=== PATIENT | female | born 1945 | race Caucasian/White ===

== ENCOUNTER 2017-10-14 07:25 | Observation (INO) | payer MEDICARE ==
[~2017-10-14] VITALS: Ht 170.2 cm; Wt 130.3 kg
[2017-10-14] MEDS ORDERED: ONDANSETRON HCL INJ 2 MG/ML VIAL IV STA (08:04)
[2017-10-14] MEDS ORDERED: SODIUM CHLORIDE 0.9% 1000ML 1,000 ML IV ONE (08:15)
[2017-10-14 08:32] LABS: BASOPHILS % 0.3 % (0.0-1.0); HEMATOCRIT 37.8 % (34.2-44.1); HEMOGLOBIN 12.8 g/dL (12.0-16.0); LYMPHOCYTES # (AUTO) 0.4 (1.0-3.2); LYMPHOCYTES % 5.3 % (18.0-39.1); MEAN CORPUSCULAR HEMOGLOBIN 31.7 pg (28-32); MEAN CORPUSCULAR HGB CONC 33.9 g/dL (31-35); MEAN CORPUSCULAR VOLUME 93.6 fL (81-99); MONOCYTES # (AUTO) 0.4 (0.2-0.8); MONOCYTES % 5.6 % (4.4-11.3); NEUTROPHILS # (AUTO) 6.6 (2.1-6.9); NEUTROPHILS % 88.3 % (38.7-80.0); PLATELET COUNT 84 x10e3/uL (140-360); RED BLOOD COUNT 4.04 x10e6/uL (3.6-5.1); RED CELL DISTRIBUTION WIDTH 12.7 % (11.7-14.4)
[2017-10-14 08:45] LABS: BILIRUBIN,URINE NEGATIVE (NEGATIVE); CLARITY,URINE CLEAR (CLEAR); COLOR,URINE YELLOW (YELLOW); KETONES,URINE TRACE (NEGATIVE); LEUKOCYTE ESTERASE ,URINE NEGATIVE (NEGATIVE); NITRITE,URINE NEGATIVE (NEGATIVE); PROTEIN,URINE DIPSTICK 2+ (NEGATIVE); URINE UROBILINOGEN 0.2 mg/dL (0.2 - 1)
[2017-10-14 08:46] LABS: ALBUMIN 3.1 g/dL (3.5-5.0); ALBUMIN/GLOBULIN RATIO 0.9 (0.8-2.0); ANION GAP 12.7 mmol/L (8-16); CALCIUM 8.9 mg/dL (8.4-10.2); CREATININE, SERUM 1.28 mg/dL (0.57-1.11); POTASSIUM 3.7 mmol/L (3.5-5.1)
[2017-10-14 09:05] LABS: AMORPHOUS SEDIMENT,URINE FEW (FEW); BACTERIA,URINE RARE /HPF; EPITHELIAL CELLS,URINE RARE /LPF
--- NOTE | 2017-10-14 09:45 | Diagnostic Imaging Report ---
PROCEDURE:X-RAY ABDOMEN - KUB COMPARISON:None. INDICATIONS:VOMITING FINDINGS: There is a non-obstructed bowel-gas pattern. There are no calcifications projected over the renal shadows, expected course of the ureters or bladder. There are no acute osseous abnormalities. The lung bases are clear. CONCLUSION: No acute radiographic abnormality. Dictated by: Cameron Boone M.D. on 10/14/2017 at 9:45 Electronically approved by: Cameron Boone M.D. on 10/14/2017 at 9:45
[2017-10-14] MEDS ORDERED: CLINDAMYCIN PHOS 900MG/ D5W 50 50 ML IV ONE (10:45)
[2017-10-14] MEDS ORDERED: ACETAMINOPHEN 325 MG TAB PO ONE (11:00)
[2017-10-14] MEDS ORDERED: ONDANSETRON HCL INJ 2 MG/ML VIAL IV PRN (11:15)
[2017-10-14] MEDS ORDERED: SODIUM CHLORIDE FLUSH 10 ML SYR INJ PRN (11:15)
--- OUTSIDE RECORDS SUMMARY | 2017-10-14 11:56 | XMS REPORT ---
Author Author [facility] Address Unknown Phone Unavailable Care Team Providers Care Candy Polisher Name Role Phone COLTON BARRON Unavailable Unavailable Problems This patient has no known problems. Allergies, Adverse Reactions, Alerts This patient has no known allergies or adverse reactions. Medications This patient has no known medications. Results Test Description Test Time Test Comments Text Results Atomic Results Result Comments ABDOMEN-1VIEW (KUB) [place] [address] Patient Name: RENITA IVERSON MR #: [id number] : 1945 Age/Sex: 72/F Req #: [id number] Adm Physician: Ordered by: COLTON BARRON MD Report #: [id number] Location: ER Room/Bed: Procedure: [id number] DX/ABDOMEN-1VIEW (KUB) Exam Date: 10/14/17 Exam Time: 0850 REPORT STATUS: Signed PROCEDURE: X-RAY ABDOMEN - KUB COMPARISON: None. INDICATIONS: VOMITING FINDINGS: There is a non-obstructed bowel-gas pattern. There are no calcifications projected over the renal shadows, expected course of the ureters or bladder. There are no acute osseous abnormalities. The lung bases are clear. CONCLUSION: No acute radiographic abnormality. Dictated by: Liliane Boone M.D. on 10/14/2017 at 9:45 Electronically approved by: Liliane oBone M.D. on 10/14/2017 at 9:45 Dictated By : LILIANE BOONE MD 4 Transcribed By: BAO on 10/14/17944 COPY TO: COLTON BARRON MD
[2017-10-14] MEDS ORDERED: VANCOMYCIN 1GM/NS 250 ML 250 ML IV SCH (17:45)
[2017-10-14 18:21] VITALS: BP 148/62
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
[2017-10-14 18:52] VITALS: BP 148/62
[2017-10-14] MEDS ORDERED: SODIUM CHLORIDE 0.9% 250ML 250 ML ONE (19:51)
[2017-10-14] MEDS: VANCOMYCIN 1GM/NS 250 ML 250 ML IV SCH (21:06)
[2017-10-14] MEDS ORDERED: DEXTROSE 50% SYRINGE 50 ML IV PRN (22:30)
[2017-10-14] MEDS: INSULIN REGULAR, HUMAN 100 UNIT/1 ML 3ML VIAL SQ SCH (22:30)
[2017-10-15] VITALS: BP 122/59
[2017-10-15 04:00] VITALS: BP 122/52
[2017-10-15 06:55] LABS: BASOPHILS % 0.3 % (0.0-1.0); EOSINOPHILS % 0.2 % (0.0-6.0); HEMATOCRIT 37.5 % (34.2-44.1); HEMOGLOBIN 12.6 g/dL (12.0-16.0); LYMPHOCYTES # (AUTO) 0.7 (1.0-3.2); LYMPHOCYTES % 12.9 % (18.0-39.1); MEAN CORPUSCULAR HEMOGLOBIN 31.9 pg (28-32); MEAN CORPUSCULAR HGB CONC 33.6 g/dL (31-35); MEAN CORPUSCULAR VOLUME 94.9 fL (81-99); MONOCYTES # (AUTO) 0.5 (0.2-0.8); MONOCYTES % 9.2 % (4.4-11.3); NEUTROPHILS # (AUTO) 4.4 (2.1-6.9); NEUTROPHILS % 76.9 % (38.7-80.0); PLATELET COUNT 87 x10e3/uL (140-360); RED BLOOD COUNT 3.95 x10e6/uL (3.6-5.1); RED CELL DISTRIBUTION WIDTH 12.8 % (11.7-14.4)
[2017-10-15] MEDS ORDERED: ASPIRIN 325 MG TAB PO ONE (07:00)
[2017-10-15 07:25] LABS: ANION GAP 11.1 mmol/L (8-16); CALCIUM 8.9 mg/dL (8.4-10.2); CREATININE, SERUM 1.21 mg/dL (0.57-1.11); POTASSIUM 4.1 mmol/L (3.5-5.1)
[2017-10-15 07:41] VITALS: BP 136/62
[2017-10-15 08:03] LABS: FREE THYROXINE INDEX 1.6864 (1.4-3.8); THYROID STIMULATING HORMONE 0.935 uIU/mL (0.350-4.940)
[2017-10-15 08:08] LABS: CHOL/HDL RATIO 3.2 (3.0-3.6)
[2017-10-15 08:20] LABS: ANISOCYTOSIS SLIGHT; BAND NEUTROPHILS % (MANUAL) 1 %; BLAST CELLS % MANUAL 1; HYPOCHROMASIA SLIGHT; LYMPHOCYTES % (MANUAL) 11 % (19-48); MONOCYTES % (MANUAL) 7 % (3.4-9.0); NEUTROPHILS % (MANUAL) 75 % (40-74)
[2017-10-15 08:21] LABS: PLATELET ESTIMATE SLIGHTLY DECREASED; PLATELET MORPHOLOGY COMMENT NORMAL; RBC MORPHOLOGY COMMENT NORMAL
[2017-10-15] MEDS: VANCOMYCIN 1GM/NS 250 ML 250 ML IV SCH ×2 (09:50→21:26)
[2017-10-15 11:10] VITALS: BP 138/63
[2017-10-15] MEDS: INSULIN REGULAR, HUMAN 100 UNIT/1 ML 3ML VIAL SQ SCH ×3 (12:24→21:27)
--- NOTE | 2017-10-15 13:06 | Diagnostic Imaging Report ---
EXAMINATION: MRI of the brain without contrast. HISTORY: Syncope COMPARISON: None. TECHNIQUE: Sagittal T2; axial DWI, T2, FLAIR, T1-IR, T2 gradient echo; coronal FLAIR. IMAGE QUALITY: Motion artifact limits the evaluation of most of the sequences. FINDINGS: Parenchyma: 1. Scattered and mildly confluent supratentorial white matter T2 and FLAIR hyperintense foci, most likely nonspecific chronic microvascular ischemic changes. 2. Small focal cortical subcortical FLAIR hyperintensity is/drug use is in the left inferior occipital lobe may represent sequela from remote infarct. No mass, hemorrhage, acute or chronic infarcts. Skull: Unremarkable. Vessels: Expected flow voids present in the major arteries and dural sinuses. Extra-axial spaces: No abnormal signal intensity or mass effect. Brain volume: Within normal limits for age. Ventricles: No hydrocephalus or displacement. Foramen magnum: Unremarkable. Sella: Unremarkable. Paranasal / mastoid sinuses: No significant inflammatory disease. IMPRESSION: 1. No acute infarcts. 2. Mild chronic microvascular ischemic changes. 3. 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 Signed by: Dr. Paulette rBadshaw M.D. on 10/15/2017 1:02 PM
[2017-10-15 15:34] VITALS: BP 136/61
[2017-10-15 19:45] VITALS: BP 158/70
[2017-10-15] MEDS ORDERED: INSULIN DETEMIR 100 UNIT/ML PEN SQ SCH (21:00)
[2017-10-16 00:36] VITALS: BP 137/61
[2017-10-16 00:54] VITALS: BP 137/61
[2017-10-16 05:00] VITALS: BP 146/65
[2017-10-16 06:28] LABS: BASOPHILS % 0.4 % (0.0-1.0); EOSINOPHILS # (AUTO) 0.1 (0.0-0.4); EOSINOPHILS % 1.4 % (0.0-6.0); HEMATOCRIT 36.9 % (34.2-44.1); LYMPHOCYTES # (AUTO) 0.9 (1.0-3.2); LYMPHOCYTES % 15.3 % (18.0-39.1); MEAN CORPUSCULAR HEMOGLOBIN 30.9 pg (28-32); MEAN CORPUSCULAR HGB CONC 32.5 g/dL (31-35); MEAN CORPUSCULAR VOLUME 95.1 fL (81-99); MONOCYTES # (AUTO) 0.7 (0.2-0.8); MONOCYTES % 13.2 % (4.4-11.3); NEUTROPHILS # (AUTO) 3.9 (2.1-6.9); NEUTROPHILS % 69.2 % (38.7-80.0); PLATELET COUNT 82 x10e3/uL (140-360); RED BLOOD COUNT 3.88 x10e6/uL (3.6-5.1); RED CELL DISTRIBUTION WIDTH 12.7 % (11.7-14.4)
[2017-10-16 06:47] LABS: ANION GAP 12.2 mmol/L (8-16); CALCIUM 9.3 mg/dL (8.4-10.2); CREATININE, SERUM 1.12 mg/dL (0.57-1.11); POTASSIUM 4.2 mmol/L (3.5-5.1)
[2017-10-16 08:28] VITALS: BP 161/72
[2017-10-16] MEDS: VANCOMYCIN 1GM/NS 250 ML 250 ML IV SCH (08:30)
[2017-10-16] MEDS: INSULIN REGULAR, HUMAN 100 UNIT/1 ML 3ML VIAL SQ SCH ×2 (08:30→11:40)
[2017-10-16 09:02] VITALS: BP 161/72
== END 2017-10-16 11:49 | disposition home or self-care (01) ==
LOC: ER 07:25 → ERHOLD 11:53 → IMCU 17:37
PROVIDERS: ADMIT Family Medicine; ATTEND Family Medicine
DX: L03.115 Cellulitis of right lower limb (principal); R55 Syncope and collapse; I10 Essential (primary) hypertension; E11.9 Type 2 diabetes mellitus without complications; E87.0 Hyperosmolality and hypernatremia; R42 Dizziness and giddiness; E66.9 Obesity, unspecified; Z68.42 Body mass index [BMI] 45.0-49.9, adult; E11.65 Type 2 diabetes mellitus with hyperglycemia
CPT/HCPCS: 36415 ×3; 70551; 74018; 80048 ×2; 80053; 80061; 81001; 82948 ×3; 83605; 84436; 84443; 84479; 84484; 85025 ×3; 87040; 93005; 93306; 93880; 93970; 96372; 99285; G0378 ×3; J2405; J3370 ×3; J7030; J7050

== ENCOUNTER → 2018-04-14 | Outpatient (CLI) | payer MEDICARE ==
--- NOTE | 2018-04-14 16:46 | Diagnostic Imaging Report ---
BILATERAL KNEES - 1 VIEW HISTORY: Primary osteoarthritis of knee, pain COMPARISON: None available. FINDINGS: Bones: Diffusely decreased mineralization of the osseous structures limits bone detail. No acute displaced fracture, within the limitations of this single view. Mild subchondral sclerosis adjacent to the right medial compartment. Bilateral small marginal osteophytes. Joints: Moderate narrowing of the right medial greater than lateral compartments. Soft tissues: The soft tissues appear unremarkable. IMPRESSION: 1. Moderate right knee osteoarthrosis. 2. Minimal left knee osteoarthrosis. 3. Diffuse osseous demineralization. Signed by: Dr. Noman Joshi D.O., M.M.M. on 04/14/2018 4:42 PM
== END ==
LOC: RAD 15:24
PROVIDERS: ATTEND Family Medicine
DX: M17.0 Bilateral primary osteoarthritis of knee (principal)
CPT/HCPCS: 73565

== ENCOUNTER → 2019-06-25 | Outpatient (CLI) | payer MEDICARE ==
--- NOTE | 2019-06-25 09:09 | Diagnostic Imaging Report ---
MRI BRAIN WO HISTORY: Headache COMPARISON: MRI brain 10/15/2017 TECHNIQUE: Sagittal T2, axial T2, axial T1, axial T2/FLAIR, axial gradient echo (or susceptibility weighted), coronal T2/FLAIR, and axial diffusion weighted MR images of the brain were obtained without contrast. Alias and noise artifacts obscure some details. DISCUSSION: Scalp/bone marrow: Unremarkable. Brain sulci: Mildly prominent. Ventricles: Compensatory dilatation. Extra-axial spaces: No masses or fluid collections. Parenchyma: Scattered T2/FLAIR hyperintense foci throughout the supratentorial white matter and tegan are likely chronic microvascular ischemic changes. Old small cortical infarcts are seen in the left occipital pole and upper right precentral gyrus (near the hand knob). Otherwise, no mass, hemorrhage, or acute vascular insults. Vessels: Normal flow voids in major arteries and veins. Sellar/Suprasellar region: No abnormalities. Craniocervical junction: No abnormalities. Incidental findings: None. IMPRESSION: 1. No acute intracranial abnormalities. 2. Mild to moderate supratentorial chronic microvascular ischemic change. 3. Mild generalized cerebral volume loss. 4. Old small cortical infarcts in the left occipital pole and upper right precentral gyrus. Signed by: Dr. Jacoby Viramontes M.D. on 06/25/2019 9:05 AM
== END ==
LOC: MRI 07:56
PROVIDERS: ATTEND Family Medicine
DX: R42 Dizziness and giddiness (principal)
CPT/HCPCS: 70551

== ENCOUNTER 2020-12-21 10:31 | Emergency (ER) | payer OTHER, MEDICARE ==
[~2020-12-21] VITALS: Ht 170.2 cm; Wt 130.2 kg
[2020-12-21] MEDS ORDERED: HYDROCODONE/APAP 5MG-325MG TAB PO STA (11:40)
[2020-12-21] MEDS ORDERED: TYLENOL # 31 EA PO (12:28)
[2020-12-21] MEDS ORDERED: ONDANSETRON ODT4 MG PO (12:28)
== END 2020-12-21 13:10 | disposition home or self-care (01) ==
LOC: ER 11:10
DX: M79.604 Pain in right leg (principal); W01.0XXA Fall on same level from slipping, tripping and stumbling without subsequent striking against object, initial encounter; Y93.01 Activity, walking, marching and hiking; Y92.008 Other place in unspecified non-institutional (private) residence as the place of occurrence of the external cause; E78.00 Pure hypercholesterolemia, unspecified; Z85.42 Personal history of malignant neoplasm of other parts of uterus; Z95.2 Presence of prosthetic heart valve
CPT/HCPCS: 99284

== ENCOUNTER 2020-12-27 16:46 | Inpatient (IN) | payer MEDICARE ==
[~2020-12-27] VITALS: Ht 170.2 cm; Wt 124.4 kg
[~2020-12-27 16:46] MED LIST: ONDANSETRON ODT4 MG PO; TYLENOL # 31 EA PO
[2020-12-27 18:42] LABS: BASOPHILS % 0.4 % (0.0-1.0); EOSINOPHILS % 0.1 % (0.0-6.0); HEMATOCRIT 36.5 % (34.2-44.1); HEMOGLOBIN 12.1 g/dL (12.0-16.0); LYMPHOCYTES # (AUTO) 0.6 (1.0-3.2); LYMPHOCYTES % 8.3 % (18.0-39.1); MEAN CORPUSCULAR HEMOGLOBIN 31.3 pg (28-32); MEAN CORPUSCULAR HGB CONC 33.2 g/dL (31-35); MEAN CORPUSCULAR VOLUME 94.6 fL (81-99); MONOCYTES # (AUTO) 0.5 (0.2-0.8); MONOCYTES % 7.1 % (4.4-11.3); NEUTROPHILS # (AUTO) 6.1 (2.1-6.9); NEUTROPHILS % 82.9 % (38.7-80.0); PLATELET COUNT 156 x10e3/uL (140-360); RED BLOOD COUNT 3.86 x10e6/uL (3.6-5.1)
[2020-12-27 18:43] LABS: CLARITY,URINE SL CLOUDY (CLEAR); COLOR,URINE AMBER (YELLOW); KETONES,URINE TRACE (NEGATIVE); LEUKOCYTE ESTERASE ,URINE NEGATIVE (NEGATIVE); NITRITE,URINE NEGATIVE (NEGATIVE); PROTEIN,URINE DIPSTICK TRACE (NEGATIVE); URINE UROBILINOGEN 0.2 mg/dL (0.2 - 1)
[2020-12-27 18:52] LABS: INR 1.04; PARTIAL THROMBOPLASTIN TIME 28.5 seconds (23.8-35.5); PROTHROMBIN TIME 14.2 seconds (11.9-14.5)
[2020-12-27] MEDS ORDERED: IOPAMIDOL 370 MG/ML 200 ML INFUS..BTL INJ ONE (18:56)
[2020-12-27 18:58] LABS: BACTERIA,URINE MANY /HPF; EPITHELIAL CELLS,URINE RARE /LPF; RBC,URINE 0-5 /HPF (0-5); WBC,URINE (MAN) 0-5 /HPF (0-5)
[2020-12-27 19:01] LABS: ALBUMIN 2.7 g/dL (3.5-5.0); ALBUMIN/GLOBULIN RATIO 0.6 (0.8-2.0); CALCIUM 9.5 mg/dL (8.4-10.2); CREATININE, SERUM 1.46 mg/dL (0.57-1.11)
[2020-12-27 19:02] LABS: AMYLASE 46 U/L (25-125); LIPASE 24 U/L (8-78)
[2020-12-27 19:10] LABS: CREATINE KINASE MB 9.8 ng/mL (0-5.0)
[2020-12-27] MEDS ORDERED: SODIUM CHLORIDE 0.9% 1000ML 1,000 ML ONE (19:51)
[2020-12-27] MEDS: SODIUM CHLORIDE 0.9% 1000ML 1,000 ML IV SCH (20:30)
[2020-12-27] MEDS ORDERED: DEXTROSE 50% SYRINGE 50 ML IV PRN (21:45)
[2020-12-27] MEDS ORDERED: ONDANSETRON HCL INJ 2MG/ML 2ML 2 MG/ML VIAL IV PRN (21:45)
[2020-12-27] MEDS: INSULIN REGULAR, HUMAN 100 UNIT/1 ML 3ML VIAL SQ SCH (22:19)
[2020-12-27] MEDS: ACETAMINOPHEN/CODEINE 300MG - 30MG TAB PO PRN (22:27)
[2020-12-27 23:00] VITALS: BP 129/65
[2020-12-27 23:05] VITALS: BP_SYST 116; BP_SYST 160; BP_DIAS 48
[2020-12-28 04:00] VITALS: BP 129/65
[2020-12-28 04:45] LABS: BASOPHILS % 0.4 % (0.0-1.0); EOSINOPHILS % 0.6 % (0.0-6.0); HEMATOCRIT 34.2 % (34.2-44.1); HEMOGLOBIN 11.5 g/dL (12.0-16.0); LYMPHOCYTES # (AUTO) 0.8 (1.0-3.2); LYMPHOCYTES % 11.5 % (18.0-39.1); MEAN CORPUSCULAR HEMOGLOBIN 31.8 pg (28-32); MEAN CORPUSCULAR HGB CONC 33.6 g/dL (31-35); MEAN CORPUSCULAR VOLUME 94.5 fL (81-99); MONOCYTES # (AUTO) 0.6 (0.2-0.8); NEUTROPHILS # (AUTO) 5.5 (2.1-6.9); NEUTROPHILS % 77.1 % (38.7-80.0); PLATELET COUNT 158 x10e3/uL (140-360); RED BLOOD COUNT 3.62 x10e6/uL (3.6-5.1); RED CELL DISTRIBUTION WIDTH 12.9 % (11.7-14.4)
[2020-12-28 05:17] LABS: ALBUMIN 2.5 g/dL (3.5-5.0); ALBUMIN/GLOBULIN RATIO 0.6 (0.8-2.0); ANION GAP 17.8 mmol/L (8-16); CALCIUM 9.1 mg/dL (8.4-10.2); CREATININE, SERUM 1.37 mg/dL (0.57-1.11); POTASSIUM 3.8 mmol/L (3.5-5.1)
[2020-12-28 05:38] LABS: CREATINE KINASE MB 4.7 ng/mL (0-5.0)
[2020-12-28] MEDS: SODIUM CHLORIDE 0.9% 1000ML 1,000 ML IV SCH ×2 (05:46→16:21)
[2020-12-28] MEDS: INSULIN REGULAR, HUMAN 100 UNIT/1 ML 3ML VIAL SQ SCH ×4 (07:30→22:11)
[2020-12-28] MEDS: CLINDAMYCIN 300MG 50 ML IV SCH ×3 (08:07→20:55)
[2020-12-28 08:58] VITALS: BP 129/65
[2020-12-28 11:14] VITALS: BP 144/62
[2020-12-28 14:47] LABS: CREATINE KINASE MB 2.4 ng/mL (0-5.0)
[2020-12-28 15:16] VITALS: BP 122/75
[2020-12-28] MEDS ORDERED: DEXTROSE 50% SYRINGE 50 ML IV PRN ×2 (16:15)
[2020-12-28 20:00] VITALS: BP 126/51
[2020-12-28] MEDS ORDERED: INSULIN GLARGINE 100 UNITS/ML VIAL SQ SCH (21:00)
[2020-12-28] MEDS: ACETAMINOPHEN/CODEINE 300MG - 30MG TAB PO PRN (22:48)
[2020-12-29] VITALS (8 sets, daily range): BP systolic 125–158; BP diastolic 60–70
[2020-12-29] MEDS: SODIUM CHLORIDE 0.9% 1000ML 1,000 ML IV SCH ×3 (02:24→21:45)
[2020-12-29] MEDS: CLINDAMYCIN 300MG 50 ML IV SCH ×4 (02:27→20:41)
[2020-12-29 04:59] LABS: ALBUMIN 2.4 g/dL (3.5-5.0); ALBUMIN/GLOBULIN RATIO 0.6 (0.8-2.0); ANION GAP 16.6 mmol/L (8-16); CALCIUM 8.9 mg/dL (8.4-10.2); CREATININE, SERUM 1.2 mg/dL (0.57-1.11); MAGNESIUM 2.3 MG/DL (1.3-2.1); POTASSIUM 3.6 mmol/L (3.5-5.1)
[2020-12-29] MEDS: ACETAMINOPHEN/CODEINE 300MG - 30MG TAB PO PRN (07:22)
[2020-12-29] MEDS: INSULIN REGULAR, HUMAN 100 UNIT/1 ML 3ML VIAL SQ SCH ×4 (07:30→21:03)
[2020-12-29] MEDS ORDERED: ONDANSETRON HCL 4 MG ORAL DISINTEGRATING TAB PO PRN (13:00)
[2020-12-29] MEDS: ENOXAPARIN SOD INJ 40 MG/0.4 ML SYR SC SCH (17:00)
[2020-12-29] MEDS: BALSAM PERU/CASTOR OIL 60 GM OINT...G. TP SCH (17:24)
[2020-12-29] MEDS: INSULIN GLARGINE 100 UNITS/ML VIAL SQ SCH (21:03)
[2020-12-30] VITALS (8 sets, daily range): BP systolic 137–154; BP diastolic 55–63
[2020-12-30] MEDS: CLINDAMYCIN 300MG 50 ML IV SCH ×4 (02:13→20:30)
[2020-12-30] MEDS: SODIUM CHLORIDE 0.9% 1000ML 1,000 ML IV SCH ×2 (04:37→14:14)
[2020-12-30 04:59] LABS: BASOPHILS % 0.2 % (0.0-1.0); EOSINOPHILS # (AUTO) 0.1 (0.0-0.4); EOSINOPHILS % 0.8 % (0.0-6.0); HEMATOCRIT 31.8 % (34.2-44.1); HEMOGLOBIN 10.3 g/dL (12.0-16.0); LYMPHOCYTES # (AUTO) 0.9 (1.0-3.2); LYMPHOCYTES % 10.7 % (18.0-39.1); MEAN CORPUSCULAR HEMOGLOBIN 31.6 pg (28-32); MEAN CORPUSCULAR HGB CONC 32.4 g/dL (31-35); MEAN CORPUSCULAR VOLUME 97.5 fL (81-99); MONOCYTES # (AUTO) 0.7 (0.2-0.8); MONOCYTES % 8.5 % (4.4-11.3); NEUTROPHILS # (AUTO) 6.6 (2.1-6.9); NEUTROPHILS % 78.1 % (38.7-80.0); PLATELET COUNT 154 x10e3/uL (140-360); RED BLOOD COUNT 3.26 x10e6/uL (3.6-5.1); RED CELL DISTRIBUTION WIDTH 13.2 % (11.7-14.4)
[2020-12-30 05:35] LABS: ALBUMIN 2.1 g/dL (3.5-5.0); ALBUMIN/GLOBULIN RATIO 0.5 (0.8-2.0); CALCIUM 8.7 mg/dL (8.4-10.2); CREATININE, SERUM 1.02 mg/dL (0.57-1.11)
[2020-12-30] MEDS: INSULIN REGULAR, HUMAN 100 UNIT/1 ML 3ML VIAL SQ SCH ×4 (07:28→21:00)
[2020-12-30] MEDS: BALSAM PERU/CASTOR OIL 60 GM OINT...G. TP SCH (08:22)
[2020-12-30] MEDS: ACETAMINOPHEN/CODEINE 300MG - 30MG TAB PO PRN ×3 (08:23→17:07)
[2020-12-30] MEDS: ENOXAPARIN SOD INJ 40 MG/0.4 ML SYR SC SCH (17:00)
[2020-12-30] MEDS: INSULIN GLARGINE 100 UNITS/ML VIAL SQ SCH (21:00)
[2020-12-31] VITALS (8 sets, daily range): BP systolic 146–164; BP diastolic 62–76
[2020-12-31] MEDS: CLINDAMYCIN 300MG 50 ML IV SCH ×4 (02:22→20:25)
[2020-12-31] MEDS: INSULIN REGULAR, HUMAN 100 UNIT/1 ML 3ML VIAL SQ SCH ×4 (07:30→20:13)
[2020-12-31] MEDS: ACETAMINOPHEN/CODEINE 300MG - 30MG TAB PO PRN (08:34)
[2020-12-31] MEDS: METOPROLOL SUCCINATE 25 MG TAB XL PO SCH (09:00)
[2020-12-31] MEDS: AMLODIPINE BESYLATE 5 MG TAB PO SCH (09:00)
[2020-12-31] MEDS: BALSAM PERU/CASTOR OIL 60 GM OINT...G. TP SCH (09:00)
[2020-12-31] MEDS: SODIUM CHLORIDE 0.9% 1000ML 1,000 ML IV SCH (11:00)
[2020-12-31 16:56] LABS: ANION GAP 14.1 mmol/L (8-16); CALCIUM 8.6 mg/dL (8.4-10.2); CREATININE, SERUM 1.07 mg/dL (0.57-1.11); POTASSIUM 4.1 mmol/L (3.5-5.1)
[2020-12-31] MEDS: ENOXAPARIN SOD INJ 40 MG/0.4 ML SYR SC SCH (17:00)
[2020-12-31] MEDS: INSULIN GLARGINE 100 UNITS/ML VIAL SQ SCH (20:12)
[2021-01-01] VITALS (8 sets, daily range): BP systolic 140–165; BP diastolic 50–78
[2021-01-01] MEDS: SODIUM CHLORIDE 0.9% 1000ML 1,000 ML IV SCH ×3 (01:45→19:45)
[2021-01-01] MEDS: CLINDAMYCIN 300MG 50 ML IV SCH ×4 (02:00→20:59)
[2021-01-01 04:46] LABS: BASOPHILS % 0.2 % (0.0-1.0); EOSINOPHILS # (AUTO) 0.1 (0.0-0.4); EOSINOPHILS % 0.7 % (0.0-6.0); HEMATOCRIT 32.5 % (34.2-44.1); HEMOGLOBIN 10.4 g/dL (12.0-16.0); LYMPHOCYTES # (AUTO) 0.8 (1.0-3.2); LYMPHOCYTES % 7.8 % (18.0-39.1); MEAN CORPUSCULAR HEMOGLOBIN 31.3 pg (28-32); MEAN CORPUSCULAR VOLUME 97.9 fL (81-99); MONOCYTES # (AUTO) 0.9 (0.2-0.8); MONOCYTES % 8.3 % (4.4-11.3); NEUTROPHILS # (AUTO) 8.6 (2.1-6.9); NEUTROPHILS % 81.6 % (38.7-80.0); PLATELET COUNT 150 x10e3/uL (140-360); RED BLOOD COUNT 3.32 x10e6/uL (3.6-5.1); RED CELL DISTRIBUTION WIDTH 13.1 % (11.7-14.4)
[2021-01-01 05:29] LABS: ALANINE AMINOTRANSFERASE 20 IU/L (0-55); ALBUMIN 1.9 g/dL (3.5-5.0); ALBUMIN/GLOBULIN RATIO 0.4 (0.8-2.0); ALKALINE PHOSPHATASE 105 IU/L (40-150); ANION GAP 12.2 mmol/L (8-16); BLOOD UREA NITROGEN 21 mg/dL (7-26); BUN/CREATININE RATIO 23 (6-25); CALCIUM 8.5 mg/dL (8.4-10.2); CARBON DIOXIDE 25 mmol/L (22-29); CHLORIDE 108 mmol/L (98-107); CREATININE, SERUM 0.91 mg/dL (0.57-1.11); EST GLOMERULAR FILTRATION RATE > 60 ML/MIN (60-); GLUCOSE 164 mg/dL (74-118); POTASSIUM 4.2 mmol/L (3.5-5.1); SODIUM 141 mmol/L (136-145)
[2021-01-01] MEDS: INSULIN REGULAR, HUMAN 100 UNIT/1 ML 3ML VIAL SQ SCH ×4 (07:30→22:15)
[2021-01-01] MEDS: METOPROLOL SUCCINATE 25 MG TAB XL PO SCH (08:29)
[2021-01-01] MEDS: AMLODIPINE BESYLATE 5 MG TAB PO SCH (08:29)
[2021-01-01] MEDS: BALSAM PERU/CASTOR OIL 60 GM OINT...G. TP SCH (08:29)
[2021-01-01] MEDS: ENOXAPARIN SOD INJ 40 MG/0.4 ML SYR SC SCH (16:23)
[2021-01-01] MEDS: INSULIN GLARGINE 100 UNITS/ML VIAL SQ SCH (22:16)
[2021-01-02] VITALS (7 sets, daily range): BP systolic 125–169; BP diastolic 52–65
[2021-01-02] MEDS: CLINDAMYCIN 300MG 50 ML IV SCH (02:06)
[2021-01-02] MEDS: SODIUM CHLORIDE 0.9% 1000ML 1,000 ML IV SCH ×3 (07:29→20:30)
[2021-01-02] MEDS: INSULIN REGULAR, HUMAN 100 UNIT/1 ML 3ML VIAL SQ SCH ×4 (07:30→22:19)
[2021-01-02] MEDS: AMLODIPINE BESYLATE 5 MG TAB PO SCH (08:09)
[2021-01-02] MEDS: METOPROLOL SUCCINATE 25 MG TAB XL PO SCH (08:10)
[2021-01-02] MEDS: BALSAM PERU/CASTOR OIL 60 GM OINT...G. TP SCH (08:10)
[2021-01-02] MEDS: CEFEPIME 1 GM in SODIUM CHLORIDE 0.9% 50ML 50 ML IV SCH ×2 (09:38→16:22)
[2021-01-02] MEDS: ACETAMINOPHEN/CODEINE 300MG - 30MG TAB PO PRN (10:16)
[2021-01-02] MEDS: VANCOMYCIN 1GM/NS 250 ML 250 ML IV SCH ×2 (10:16→22:49)
[2021-01-02] MEDS ORDERED: PIPERACILLIN/TAZOBACTAM 3.375 GM in SODIUM CHLORIDE 0.9% 50ML 50 ML IV SCH (12:00)
[2021-01-02] MEDS ORDERED: CEFEPIME HCL 1 GM VIAL IV SCH (14:00)
[2021-01-02] MEDS: ENOXAPARIN SOD INJ 40 MG/0.4 ML SYR SC SCH (16:22)
[2021-01-02] MEDS: INSULIN GLARGINE 100 UNITS/ML VIAL SQ SCH (22:20)
[2021-01-03] VITALS (8 sets, daily range): BP systolic 144–170; BP diastolic 55–71
[2021-01-03] MEDS: CEFEPIME 1 GM in SODIUM CHLORIDE 0.9% 50ML 50 ML IV SCH ×3 (01:01→17:00)
[2021-01-03] MEDS: SODIUM CHLORIDE 0.9% 1000ML 1,000 ML IV SCH ×2 (01:45→11:52)
[2021-01-03] MEDS: DOCUSATE SODIUM 100 MG CAP PO SCH ×2 (08:20→18:13)
[2021-01-03] MEDS: METOPROLOL SUCCINATE 25 MG TAB XL PO SCH (08:22)
[2021-01-03] MEDS: AMLODIPINE BESYLATE 5 MG TAB PO SCH (08:22)
[2021-01-03] MEDS: INSULIN REGULAR, HUMAN 100 UNIT/1 ML 3ML VIAL SQ SCH ×3 (08:28→17:26)
[2021-01-03] MEDS: BALSAM PERU/CASTOR OIL 60 GM OINT...G. TP SCH (08:28)
[2021-01-03] MEDS: VANCOMYCIN 1GM/NS 250 ML 250 ML IV SCH (10:39)
[2021-01-03] MEDS: ENOXAPARIN SOD INJ 40 MG/0.4 ML SYR SC SCH (18:13)
== END 2021-01-03 20:30 | DRG 558 ==
LOC: ER 17:14 → ERHOLD 21:35 → MED/SURG 23:00
PROVIDERS: ADMIT Family Medicine; ATTEND Family Medicine
DX: M62.82 Rhabdomyolysis (principal); I13.0 Hypertensive heart and chronic kidney disease with heart failure and stage 1 through stage 4 chronic kidney disease, or unspecified chronic kidney disease; N17.9 Acute kidney failure, unspecified; L03.115 Cellulitis of right lower limb; I50.22 Chronic systolic (congestive) heart failure; Z68.42 Body mass index [BMI] 45.0-49.9, adult; W06.XXXA Fall from bed, initial encounter; Y93.89 Activity, other specified; Y92.013 Bedroom of single-family (private) house as the place of occurrence of the external cause; N18.9 Chronic kidney disease, unspecified; I25.10 Atherosclerotic heart disease of native coronary artery without angina pectoris; K21.00 Gastro-esophageal reflux disease with esophagitis, without bleeding; Z85.42 Personal history of malignant neoplasm of other parts of uterus; Z95.2 Presence of prosthetic heart valve; Z88.0 Allergy status to penicillin; M17.11 Unilateral primary osteoarthritis, right knee; R53.81 Other malaise; Z79.4 Long term (current) use of insulin; Z20.822 Contact with and (suspected) exposure to COVID-19; R29.6 Repeated falls; E66.01 Morbid (severe) obesity due to excess calories; E78.5 Hyperlipidemia, unspecified; E11.42 Type 2 diabetes mellitus with diabetic polyneuropathy; E11.319 Type 2 diabetes mellitus with unspecified diabetic retinopathy without macular edema; Z82.49 Family history of ischemic heart disease and other diseases of the circulatory system; E11.21 Type 2 diabetes mellitus with diabetic nephropathy; M66.861 Spontaneous rupture of other tendons, right lower leg
CPT/HCPCS: 36415; 70450; 71045; 72125; 74177; 80048; 80053; 80202; 81001; 82150; 82550; 82553; 82948; 83690; 83735; 84484; 84550; 85025; 85610; 85730; 93005; 93971; 97139; 99251; 99284; J0692; J1650; J1815; J1817; J3370; J7030; Q9967; U0002

== ENCOUNTER 2021-08-24 20:24 | Inpatient (IN) | payer MEDICARE ==
[~2021-08-24] VITALS: Ht 170.2 cm; Wt 124.3 kg
[2021-08-24 21:38] LABS: BASOPHILS % 0.3 % (0.0-1.0); EOSINOPHILS % 0.4 % (0.0-6.0); HEMATOCRIT 33.7 % (34.2-44.1); HEMOGLOBIN 10.4 g/dL (12.0-16.0); LYMPHOCYTES % 12.3 % (18.0-39.1); MEAN CORPUSCULAR HEMOGLOBIN 29.5 pg (28-32); MEAN CORPUSCULAR HGB CONC 30.9 g/dL (31-35); MEAN CORPUSCULAR VOLUME 95.5 fL (81-99); MONOCYTES # (AUTO) 0.5 (0.2-0.8); MONOCYTES % 6.6 % (4.4-11.3); NEUTROPHILS # (AUTO) 6.2 (2.1-6.9); NEUTROPHILS % 80.1 % (38.7-80.0); PLATELET COUNT 177 x10e3/uL (140-360); RED BLOOD COUNT 3.53 x10e6/uL (3.6-5.1); RED CELL DISTRIBUTION WIDTH 14.2 % (11.7-14.4)
[2021-08-24 21:57] LABS: ALBUMIN 3.6 g/dL (3.5-5.0); ALBUMIN/GLOBULIN RATIO 0.7 (0.8-2.0); ANION GAP 17.4 mmol/L (8-16); CALCIUM 10.1 mg/dL (8.4-10.2); CREATININE, SERUM 1.51 mg/dL (0.57-1.11); POTASSIUM 4.4 mmol/L (3.5-5.1)
[2021-08-24] MEDS ORDERED: ONDANSETRON HCL INJ 2MG/ML 2ML 2 MG/ML VIAL IV PRN (22:30)
[2021-08-24] MEDS: CEFEPIME 1 GM in SODIUM CHLORIDE 0.9% 50ML 50 ML IV SCH (23:00)
[2021-08-24] MEDS: Vancomycin IV 1 GM in SODIUM CHLORIDE 0.9% 250ML 250 ML IV SCH (23:28)
[2021-08-25] VITALS (7 sets, daily range): BP systolic 117–158; BP diastolic 48–71
[2021-08-25] MEDS ORDERED: DIPHENHYDRAMINE HCL 25 MG CAP PO PRN
[2021-08-25] MEDS ORDERED: OXYBUTYNIN CHLOR5 MG (03:14)
[2021-08-25] MEDS ORDERED: FUROSEMIDE40 MG (03:14)
[2021-08-25] MEDS ORDERED: DOXYCYCLINE HY100 MG (03:14)
[2021-08-25] MEDS ORDERED: ATORVASTATIN CA40 MG (03:14)
[2021-08-25] MEDS ORDERED: METOPROLOL SUCC25 MG (03:14)
[2021-08-25] MEDS ORDERED: CLOPIDOGREL75 MG (03:14)
[2021-08-25] MEDS ORDERED: SPIRONOLACTONE25 MG (03:14)
[2021-08-25] MEDS ORDERED: AMLODIPINE BESYL5 MG (03:14)
[2021-08-25] MEDS ORDERED: K DUR10 MEQ (03:14)
[2021-08-25] MEDS ORDERED: GLIMEPIRIDE2 MG (03:14)
[2021-08-25] MEDS: CEFEPIME 1 GM in SODIUM CHLORIDE 0.9% 50ML 50 ML IV SCH ×3 (05:43→20:54)
[2021-08-25 10:35] LABS: BASOPHILS % 0.4 % (0.0-1.0); EOSINOPHILS # (AUTO) 0.1 (0.0-0.4); HEMATOCRIT 29.4 % (34.2-44.1); HEMOGLOBIN 8.9 g/dL (12.0-16.0); LYMPHOCYTES # (AUTO) 0.7 (1.0-3.2); LYMPHOCYTES % 15.4 % (18.0-39.1); MEAN CORPUSCULAR HEMOGLOBIN 29.3 pg (28-32); MEAN CORPUSCULAR HGB CONC 30.3 g/dL (31-35); MEAN CORPUSCULAR VOLUME 96.7 fL (81-99); MONOCYTES # (AUTO) 0.5 (0.2-0.8); NEUTROPHILS # (AUTO) 3.5 (2.1-6.9); PLATELET COUNT 130 x10e3/uL (140-360); RED BLOOD COUNT 3.04 x10e6/uL (3.6-5.1); RED CELL DISTRIBUTION WIDTH 14.2 % (11.7-14.4)
[2021-08-25 11:07] LABS: ALBUMIN 2.9 g/dL (3.5-5.0); ALBUMIN/GLOBULIN RATIO 0.7 (0.8-2.0); ANION GAP 11.2 mmol/L (8-16); CALCIUM 9.3 mg/dL (8.4-10.2); CREATININE, SERUM 1.37 mg/dL (0.57-1.11); POTASSIUM 4.2 mmol/L (3.5-5.1)
[2021-08-25] MEDS ORDERED: SODIUM CHLORIDE 0.9% 250ML 250 ML ONE (15:00)
[2021-08-25] MEDS ORDERED: ACETAMINOPHEN/CODEINE 300MG - 30MG TAB PO PRN (19:30)
[2021-08-25] MEDS: Vancomycin IV 1 GM in SODIUM CHLORIDE 0.9% 250ML 250 ML IV SCH (22:34)
[2021-08-26] VITALS (8 sets, daily range): BP systolic 141–164; BP diastolic 52–74
[2021-08-26] MEDS: CEFEPIME 1 GM in SODIUM CHLORIDE 0.9% 50ML 50 ML IV SCH ×3 (05:02→21:32)
[2021-08-26] MEDS: ONDANSETRON HCL 4 MG ORAL DISINTEGRATING TAB PO SCH ×4 (05:02→17:24)
[2021-08-26] MEDS: SPIRONOLACTONE 25 MG TAB PO SCH (08:57)
[2021-08-26] MEDS: OXYBUTYNIN CHLORIDE 5 MG TAB PO SCH (08:57)
[2021-08-26] MEDS: GLIMEPIRIDE 2 MG TAB PO SCH ×2 (08:57→16:25)
[2021-08-26] MEDS: POTASSIUM CHLORIDE 10MEQ EA PO SCH (08:58)
[2021-08-26] MEDS: CLOPIDOGREL BISULFATE 75 MG TAB PO SCH (08:58)
[2021-08-26] MEDS: FUROSEMIDE 40 MG TAB PO SCH (08:58)
[2021-08-26] MEDS: AMLODIPINE BESYLATE 5 MG TAB PO SCH (20:30)
[2021-08-26] MEDS: Vancomycin IV 1 GM in SODIUM CHLORIDE 0.9% 250ML 250 ML IV SCH (22:51)
[2021-08-26] MEDS: INSULIN ASPART 70/30 100 UNITS/ML VIAL SC SCH (22:51)
[2021-08-27] VITALS (9 sets, daily range): BP systolic 125–140; BP diastolic 50–65
[2021-08-27] MEDS: ONDANSETRON HCL 4 MG ORAL DISINTEGRATING TAB PO SCH ×5 (05:02→23:18)
[2021-08-27] MEDS: CEFEPIME 1 GM in SODIUM CHLORIDE 0.9% 50ML 50 ML IV SCH ×4 (05:02→22:14)
[2021-08-27] MEDS: INSULIN ASPART 70/30 100 UNITS/ML VIAL SC SCH ×3 (07:30→16:30)
[2021-08-27] MEDS: GLIMEPIRIDE 2 MG TAB PO SCH ×2 (09:16→16:29)
[2021-08-27] MEDS: SPIRONOLACTONE 25 MG TAB PO SCH (09:16)
[2021-08-27] MEDS: POTASSIUM CHLORIDE 10MEQ EA PO SCH (09:16)
[2021-08-27] MEDS: CLOPIDOGREL BISULFATE 75 MG TAB PO SCH (09:16)
[2021-08-27] MEDS: FUROSEMIDE 40 MG TAB PO SCH (09:16)
[2021-08-27] MEDS: AMLODIPINE BESYLATE 5 MG TAB PO SCH (09:16)
[2021-08-27] MEDS: OXYBUTYNIN CHLORIDE 5 MG TAB PO SCH (09:16)
[2021-08-27] MEDS: Vancomycin IV 1 GM in SODIUM CHLORIDE 0.9% 250ML 250 ML IV SCH (23:18)
[2021-08-28] VITALS (7 sets, daily range): BP systolic 125–144; BP diastolic 46–60
[2021-08-28] MEDS: CEFEPIME 1 GM in SODIUM CHLORIDE 0.9% 50ML 50 ML IV SCH ×3 (05:30→22:00)
[2021-08-28] MEDS: INSULIN ASPART 70/30 100 UNITS/ML VIAL SC SCH ×3 (07:30→17:10)
[2021-08-28] MEDS: SPIRONOLACTONE 25 MG TAB PO SCH (09:03)
[2021-08-28] MEDS: FUROSEMIDE 40 MG TAB PO SCH (09:03)
[2021-08-28] MEDS: POTASSIUM CHLORIDE 10MEQ EA PO SCH (09:03)
[2021-08-28] MEDS: AMLODIPINE BESYLATE 5 MG TAB PO SCH (09:03)
[2021-08-28] MEDS: OXYBUTYNIN CHLORIDE 5 MG TAB PO SCH (09:03)
[2021-08-28] MEDS: GLIMEPIRIDE 2 MG TAB PO SCH ×2 (09:03→17:09)
[2021-08-28] MEDS: CLOPIDOGREL BISULFATE 75 MG TAB PO SCH (09:03)
[2021-08-28] MEDS: ONDANSETRON HCL 4 MG ORAL DISINTEGRATING TAB PO SCH ×2 (12:00→17:06)
[2021-08-28] MEDS: Vancomycin IV 1 GM in SODIUM CHLORIDE 0.9% 250ML 250 ML IV SCH (23:51)
[2021-08-29] VITALS (8 sets, daily range): BP systolic 131–151; BP diastolic 47–80
[2021-08-29] MEDS: ONDANSETRON HCL 4 MG ORAL DISINTEGRATING TAB PO SCH ×5 (01:16→23:41)
[2021-08-29] MEDS: CEFEPIME 1 GM in SODIUM CHLORIDE 0.9% 50ML 50 ML IV SCH ×3 (05:29→21:20)
[2021-08-29] MEDS: INSULIN ASPART 70/30 100 UNITS/ML VIAL SC SCH ×3 (07:30→16:30)
[2021-08-29] MEDS: GLIMEPIRIDE 2 MG TAB PO SCH ×2 (09:00→16:30)
[2021-08-29] MEDS: POTASSIUM CHLORIDE 10MEQ EA PO SCH (09:00)
[2021-08-29] MEDS: AMLODIPINE BESYLATE 5 MG TAB PO SCH (09:00)
[2021-08-29] MEDS: CLOPIDOGREL BISULFATE 75 MG TAB PO SCH (09:00)
[2021-08-29] MEDS: FUROSEMIDE 40 MG TAB PO SCH (09:00)
[2021-08-29] MEDS: OXYBUTYNIN CHLORIDE 5 MG TAB PO SCH (09:00)
[2021-08-29] MEDS: SPIRONOLACTONE 25 MG TAB PO SCH (09:00)
[2021-08-29] MEDS: Vancomycin IV 1 GM in SODIUM CHLORIDE 0.9% 250ML 250 ML IV SCH (23:00)
[2021-08-30] VITALS (8 sets, daily range): BP systolic 131–161; BP diastolic 52–69
[2021-08-30] MEDS: CEFEPIME 1 GM in SODIUM CHLORIDE 0.9% 50ML 50 ML IV SCH ×3 (05:39→21:13)
[2021-08-30] MEDS: ONDANSETRON HCL 4 MG ORAL DISINTEGRATING TAB PO SCH ×3 (05:40→17:27)
[2021-08-30 05:55] LABS: BASOPHILS % 0.4 % (0.0-1.0); EOSINOPHILS # (AUTO) 0.1 (0.0-0.4); EOSINOPHILS % 2.2 % (0.0-6.0); HEMATOCRIT 30.2 % (34.2-44.1); HEMOGLOBIN 9.3 g/dL (12.0-16.0); LYMPHOCYTES # (AUTO) 1.1 (1.0-3.2); LYMPHOCYTES % 23.8 % (18.0-39.1); MEAN CORPUSCULAR HEMOGLOBIN 29.3 pg (28-32); MEAN CORPUSCULAR HGB CONC 30.8 g/dL (31-35); MEAN CORPUSCULAR VOLUME 95.3 fL (81-99); MONOCYTES # (AUTO) 0.7 (0.2-0.8); MONOCYTES % 15.1 % (4.4-11.3); NEUTROPHILS # (AUTO) 2.6 (2.1-6.9); NEUTROPHILS % 58.3 % (38.7-80.0); PLATELET COUNT 147 x10e3/uL (140-360); RED BLOOD COUNT 3.17 x10e6/uL (3.6-5.1); RED CELL DISTRIBUTION WIDTH 13.8 % (11.7-14.4)
[2021-08-30 06:18] LABS: ALBUMIN 2.9 g/dL (3.5-5.0); ALBUMIN/GLOBULIN RATIO 0.7 (0.8-2.0); ANION GAP 12.6 mmol/L (8-16); CALCIUM 9.7 mg/dL (8.4-10.2); CREATININE, SERUM 1.51 mg/dL (0.57-1.11); POTASSIUM 4.6 mmol/L (3.5-5.1)
[2021-08-30] MEDS: INSULIN ASPART 70/30 100 UNITS/ML VIAL SC SCH ×3 (07:30→16:30)
[2021-08-30] MEDS: GLIMEPIRIDE 2 MG TAB PO SCH ×2 (09:00→17:00)
[2021-08-30] MEDS: FUROSEMIDE 40 MG TAB PO SCH (09:00)
[2021-08-30] MEDS: OXYBUTYNIN CHLORIDE 5 MG TAB PO SCH (09:00)
[2021-08-30] MEDS: POTASSIUM CHLORIDE 10MEQ EA PO SCH (09:00)
[2021-08-30] MEDS: SPIRONOLACTONE 25 MG TAB PO SCH (09:00)
[2021-08-30] MEDS: CLOPIDOGREL BISULFATE 75 MG TAB PO SCH (09:00)
[2021-08-30] MEDS: AMLODIPINE BESYLATE 5 MG TAB PO SCH (09:00)
[2021-08-30] MEDS: Vancomycin IV 1 GM in SODIUM CHLORIDE 0.9% 250ML 250 ML IV SCH (14:00)
[2021-08-31] VITALS (8 sets, daily range): BP systolic 120–154; BP diastolic 53–61
[2021-08-31] MEDS: ONDANSETRON HCL 4 MG ORAL DISINTEGRATING TAB PO SCH ×5 (05:13→23:08)
[2021-08-31] MEDS: CEFEPIME 1 GM in SODIUM CHLORIDE 0.9% 50ML 50 ML IV SCH ×3 (05:13→21:58)
[2021-08-31] MEDS: INSULIN ASPART 70/30 100 UNITS/ML VIAL SC SCH ×3 (07:30→16:48)
[2021-08-31] MEDS ORDERED: NEOSTIGMINE 1 MG/ML 10ML VIAL ONE (08:56)
[2021-08-31] MEDS: GLIMEPIRIDE 2 MG TAB PO SCH ×2 (09:00→16:46)
[2021-08-31] MEDS: POTASSIUM CHLORIDE 10MEQ EA PO SCH (12:40)
[2021-08-31] MEDS: ACETAMINOPHEN 325 MG TAB PO PRN ×2 (12:40→22:10)
[2021-08-31] MEDS: CLOPIDOGREL BISULFATE 75 MG TAB PO SCH (12:40)
[2021-08-31] MEDS: OXYBUTYNIN CHLORIDE 5 MG TAB PO SCH (12:40)
[2021-08-31] MEDS: SPIRONOLACTONE 25 MG TAB PO SCH (12:40)
[2021-08-31] MEDS: FUROSEMIDE 40 MG TAB PO SCH (12:40)
[2021-08-31] MEDS: AMLODIPINE BESYLATE 5 MG TAB PO SCH (12:40)
[2021-08-31] MEDS ORDERED: FENTANYL CITRATE/PF 100MCG/2 ML INJ ONE (13:20)
[2021-08-31] MEDS: Vancomycin IV 1 GM in SODIUM CHLORIDE 0.9% 250ML 250 ML IV SCH (13:44)
[2021-08-31 15:51] LABS: BASOPHILS % 0.3 % (0.0-1.0); EOSINOPHILS # (AUTO) 0.1 (0.0-0.4); EOSINOPHILS % 1.8 % (0.0-6.0); HEMATOCRIT 30.1 % (34.2-44.1); HEMOGLOBIN 9.4 g/dL (12.0-16.0); LYMPHOCYTES # (AUTO) 0.8 (1.0-3.2); LYMPHOCYTES % 12.9 % (18.0-39.1); MEAN CORPUSCULAR HEMOGLOBIN 29.6 pg (28-32); MEAN CORPUSCULAR HGB CONC 31.2 g/dL (31-35); MEAN CORPUSCULAR VOLUME 94.7 fL (81-99); MONOCYTES # (AUTO) 0.5 (0.2-0.8); MONOCYTES % 7.3 % (4.4-11.3); NEUTROPHILS # (AUTO) 4.9 (2.1-6.9); NEUTROPHILS % 77.4 % (38.7-80.0); PLATELET COUNT 137 x10e3/uL (140-360); RED BLOOD COUNT 3.18 x10e6/uL (3.6-5.1); RED CELL DISTRIBUTION WIDTH 13.6 % (11.7-14.4)
[2021-08-31 15:52] LABS: ALBUMIN 2.8 g/dL (3.5-5.0); ALBUMIN/GLOBULIN RATIO 0.7 (0.8-2.0); ANION GAP 10.9 mmol/L (8-16); CALCIUM 9.3 mg/dL (8.4-10.2); CREATININE, SERUM 1.43 mg/dL (0.57-1.11); POTASSIUM 4.9 mmol/L (3.5-5.1)
[2021-08-31] MEDS ORDERED: POVIDONE IODINE 0.05% 0.05 % ML PO ONE (16:59)
[2021-08-31] MEDS ORDERED: PROPOFOL IV EMULSION 10 MG/ML 20 ML VIAL ONE (16:59)
[2021-08-31] MEDS ORDERED: LIDOCAINE HCL 2% LOCAL INJ 5 ML SDV VIAL INJ ONE (16:59)
[2021-08-31] MEDS ORDERED: SEVOFLURANE INHAL SOLN 250 ML PEN BTL ONE (16:59)
[2021-08-31] MEDS ORDERED: ONDANSETRON HCL INJ 2MG/ML 2ML 2 MG/ML VIAL ONE (16:59)
[2021-09-01] VITALS (7 sets, daily range): BP systolic 120–165; BP diastolic 54–63
[2021-09-01] MEDS: CEFEPIME 1 GM in SODIUM CHLORIDE 0.9% 50ML 50 ML IV SCH ×2 (05:58→14:00)
[2021-09-01] MEDS: ONDANSETRON HCL 4 MG ORAL DISINTEGRATING TAB PO SCH ×2 (06:00→16:33)
[2021-09-01] MEDS: ACETAMINOPHEN 325 MG TAB PO PRN (06:31)
[2021-09-01] MEDS: INSULIN ASPART 70/30 100 UNITS/ML VIAL SC SCH ×2 (07:30→11:30)
[2021-09-01] MEDS: GLIMEPIRIDE 2 MG TAB PO SCH ×2 (09:00→16:35)
[2021-09-01] MEDS: FUROSEMIDE 40 MG TAB PO SCH (09:00)
[2021-09-01] MEDS: AMLODIPINE BESYLATE 5 MG TAB PO SCH (09:00)
[2021-09-01] MEDS: SPIRONOLACTONE 25 MG TAB PO SCH (09:00)
[2021-09-01] MEDS: CLOPIDOGREL BISULFATE 75 MG TAB PO SCH (09:00)
[2021-09-01] MEDS: OXYBUTYNIN CHLORIDE 5 MG TAB PO SCH (09:00)
[2021-09-01] MEDS: POTASSIUM CHLORIDE 10MEQ EA PO SCH (09:00)
[2021-09-01] MEDS: Vancomycin IV 1 GM in SODIUM CHLORIDE 0.9% 250ML 250 ML IV SCH (14:00)
[2021-09-01] MEDS ORDERED: NYSTATIN-TRIAMC15 G1 TOP (15:45)
== END 2021-09-01 20:40 | disposition home or self-care (01) | DRG 617 ==
LOC: ER 20:50 → ERHOLD 23:28 → MED/SURG2 08-25 02:23
PROVIDERS: ADMIT Family Medicine; ATTEND Family Medicine
PROC: 0Y6T0Z0 Detachment at Right 3rd Toe, Complete, Open Approach (ICD-10-PCS; principal; 2021-08-30)
PROC: 0JDR0ZZ Extraction of Left Foot Subcutaneous Tissue and Fascia, Open Approach (ICD-10-PCS; 2021-08-30)
PROC: 0JDN0ZZ Extraction of Right Lower Leg Subcutaneous Tissue and Fascia, Open Approach (ICD-10-PCS; 2021-08-30)
DX: E11.69 Type 2 diabetes mellitus with other specified complication (principal); L03.116 Cellulitis of left lower limb; Z68.41 Body mass index [BMI] 40.0-44.9, adult; L03.115 Cellulitis of right lower limb; L97.429 Non-pressure chronic ulcer of left heel and midfoot with unspecified severity; I13.0 Hypertensive heart and chronic kidney disease with heart failure and stage 1 through stage 4 chronic kidney disease, or unspecified chronic kidney disease; M86.671 Other chronic osteomyelitis, right ankle and foot; E11.42 Type 2 diabetes mellitus with diabetic polyneuropathy; E11.621 Type 2 diabetes mellitus with foot ulcer; L97.514 Non-pressure chronic ulcer of other part of right foot with necrosis of bone; N18.30 Chronic kidney disease, stage 3 unspecified; E11.22 Type 2 diabetes mellitus with diabetic chronic kidney disease; Z82.49 Family history of ischemic heart disease and other diseases of the circulatory system; D64.9 Anemia, unspecified; E66.01 Morbid (severe) obesity due to excess calories; E78.5 Hyperlipidemia, unspecified; Z95.2 Presence of prosthetic heart valve; Z88.0 Allergy status to penicillin; I25.10 Atherosclerotic heart disease of native coronary artery without angina pectoris; I50.9 Heart failure, unspecified; Z86.73 Personal history of transient ischemic attack (TIA), and cerebral infarction without residual deficits; E11.649 Type 2 diabetes mellitus with hypoglycemia without coma; E11.51 Type 2 diabetes mellitus with diabetic peripheral angiopathy without gangrene; R32 Unspecified urinary incontinence; Z20.822 Contact with and (suspected) exposure to COVID-19
CPT/HCPCS: 36415; 80053; 80202; 82948; 83605; 85025; 86141; 87040; 87071; 87205; 88304; 88305; 88311; 93005; 94799; 99284; J0692; J1815; J2001; J2405; J2710; J3010; J3370; J7050; Q0162; U0002

== ENCOUNTER 2021-12-04 13:17 | Inpatient (IN) | payer MEDICARE ==
[~2021-12-04] VITALS: Ht 170.2 cm; Wt 128.4 kg
[~2021-12-04 13:17] MED LIST changes: +AMLODIPINE BESYL5 MG; +ASPIRIN EC81 MG PO; +ATORVASTATIN CA40 MG; +CLOPIDOGREL75 MG; +DOXYCYCLINE HY100 MG; +FARXIGA10 MG PO; +FUROSEMIDE40 MG; +GLIMEPIRIDE2 MG; +K DUR10 MEQ; +LISINOPRIL2.5 MG PO; +METOPROLOL SUCC25 MG; +NOVOLIN 70100 UNIT/3 SC; +NYSTATIN-TRIAMC15 G1 TOP; +OXYBUTYNIN CHLOR5 MG; +SPIRONOLACTONE25 MG
[2021-12-04] MEDS ORDERED: SODIUM CHLORIDE 0.9% 250ML 250 ML IV ONE (14:00)
[2021-12-04 14:11] LABS: INR 1.06; PROTHROMBIN TIME 14.8 seconds (11.9-14.5)
[2021-12-04 14:12] LABS: PARTIAL THROMBOPLASTIN TIME 29.2 seconds (23.8-35.5)
[2021-12-04 14:20] LABS: ALBUMIN/GLOBULIN RATIO 0.9 (0.8-2.0); ANION GAP 10.7 mmol/L (8-16); BASOPHILS % 0.3 % (0.0-1.0); CALCIUM 8.7 mg/dL (8.4-10.2); CREATININE, SERUM 1.5 mg/dL (0.57-1.11); EOSINOPHILS # (AUTO) 0.1 (0.0-0.4); EOSINOPHILS % 1.7 % (0.0-6.0); LYMPHOCYTES # (AUTO) 0.7 (1.0-3.2); LYMPHOCYTES % 20.6 % (18.0-39.1); MEAN CORPUSCULAR HEMOGLOBIN 28.4 pg (28-32); MEAN CORPUSCULAR HGB CONC 30.1 g/dL (31-35); MEAN CORPUSCULAR VOLUME 94.3 fL (81-99); MONOCYTES # (AUTO) 0.3 (0.2-0.8); MONOCYTES % 7.5 % (4.4-11.3); NEUTROPHILS # (AUTO) 2.5 (2.1-6.9); NEUTROPHILS % 68.8 % (38.7-80.0); POTASSIUM 4.7 mmol/L (3.5-5.1); RED BLOOD COUNT 1.94 x10e6/uL (3.6-5.1); RED CELL DISTRIBUTION WIDTH 15.1 % (11.7-14.4)
[2021-12-04 14:23] LABS: HEMATOCRIT 18.3 % (34.2-44.1); HEMOGLOBIN 5.5 g/dL (12.0-16.0)
[2021-12-04 14:24] LABS: PLATELET COUNT 69 x10e3/uL (140-360)
[2021-12-04] MEDS ORDERED: SODIUM CHLORIDE FLUSH 10 ML SYR INJ PRN (15:00)
[2021-12-04] MEDS ORDERED: ONDANSETRON HCL INJ 2MG/ML 2ML 2 MG/ML VIAL IV PRN (15:00)
[2021-12-04 15:38] LABS: CREATINE KINASE MB 2.6 ng/mL (0-5.0)
[2021-12-04 16:00] VITALS: BP 140/75
[2021-12-04 16:27] VITALS: BP 117/68
[2021-12-04 18:01] LABS: FERRITIN 113.24 ng/mL (4.63-204.00)
[2021-12-04] MEDS ORDERED: SODIUM CHLORIDE 0.9% 250ML 250 ML ONE (18:24)
[2021-12-04 20:00] VITALS: BP 136/64
[2021-12-04] MEDS: SIMVASTATIN 20 MG TAB PO SCH (20:45)
[2021-12-05] VITALS: BP 134/73
[2021-12-05] MEDS ORDERED: SODIUM CHLORIDE 0.9% 250ML 250 ML ONE (00:50)
[2021-12-05 01:36] LABS: CREATINE KINASE MB 2.5 ng/mL (0-5.0)
[2021-12-05 04:00] VITALS: BP 134/55
[2021-12-05 07:45] VITALS: BP 143/60
[2021-12-05] MEDS ORDERED: SPIRONOLACTONE 25 MG TAB PO SCH (09:00)
[2021-12-05] MEDS: GLIMEPIRIDE 2 MG TAB PO SCH (09:16)
[2021-12-05] MEDS: FUROSEMIDE 40 MG TAB PO SCH (09:16)
[2021-12-05] MEDS: METOPROLOL SUCCINATE 25 MG TAB XL PO SCH (09:17)
[2021-12-05] MEDS: AMLODIPINE BESYLATE 5 MG TAB PO SCH (09:17)
[2021-12-05] MEDS: LISINOPRIL 2.5 MG TAB PO SCH (09:17)
[2021-12-05 09:37] LABS: BASOPHILS % 0.2 % (0.0-1.0); EOSINOPHILS # (AUTO) 0.1 (0.0-0.4); EOSINOPHILS % 1.7 % (0.0-6.0); HEMATOCRIT 23.7 % (34.2-44.1); HEMOGLOBIN 7.4 g/dL (12.0-16.0); LYMPHOCYTES # (AUTO) 0.7 (1.0-3.2); LYMPHOCYTES % 15.4 % (18.0-39.1); MEAN CORPUSCULAR HEMOGLOBIN 28.5 pg (28-32); MEAN CORPUSCULAR HGB CONC 31.2 g/dL (31-35); MEAN CORPUSCULAR VOLUME 91.2 fL (81-99); MONOCYTES # (AUTO) 0.4 (0.2-0.8); MONOCYTES % 7.4 % (4.4-11.3); NEUTROPHILS # (AUTO) 3.6 (2.1-6.9); NEUTROPHILS % 74.9 % (38.7-80.0); PLATELET COUNT 71 x10e3/uL (140-360); RED CELL DISTRIBUTION WIDTH 15.9 % (11.7-14.4)
[2021-12-05 10:16] LABS: ALBUMIN/GLOBULIN RATIO 0.8 (0.8-2.0); ANION GAP 10.6 mmol/L (8-16); CALCIUM 8.8 mg/dL (8.4-10.2); CREATININE, SERUM 1.39 mg/dL (0.57-1.11); POTASSIUM 4.6 mmol/L (3.5-5.1)
[2021-12-05 11:20] LABS: CREATINE KINASE MB 2.3 ng/mL (0-5.0)
[2021-12-05 20:00] VITALS: BP 122/55
[2021-12-05] MEDS: SIMVASTATIN 20 MG TAB PO SCH (20:00)
[2021-12-05] MEDS ORDERED: PHYTONADIONE 10 MG/ML AMP IV ONE (23:45)
[2021-12-06] VITALS (9 sets, daily range): BP systolic 97–149; BP diastolic 48–57
[2021-12-06] MEDS: ACETAMINOPHEN 325 MG TAB PO PRN ×2 (01:49→21:49)
[2021-12-06 06:11] LABS: BASOPHILS % 0.4 % (0.0-1.0); EOSINOPHILS # (AUTO) 0.1 (0.0-0.4); EOSINOPHILS % 1.8 % (0.0-6.0); HEMATOCRIT 23.3 % (34.2-44.1); HEMOGLOBIN 7.2 g/dL (12.0-16.0); LYMPHOCYTES # (AUTO) 0.8 (1.0-3.2); LYMPHOCYTES % 17.2 % (18.0-39.1); MEAN CORPUSCULAR HEMOGLOBIN 28.7 pg (28-32); MEAN CORPUSCULAR HGB CONC 30.9 g/dL (31-35); MEAN CORPUSCULAR VOLUME 92.8 fL (81-99); MONOCYTES # (AUTO) 0.4 (0.2-0.8); MONOCYTES % 8.5 % (4.4-11.3); NEUTROPHILS # (AUTO) 3.2 (2.1-6.9); NEUTROPHILS % 71.4 % (38.7-80.0); PLATELET COUNT 62 x10e3/uL (140-360); RED BLOOD COUNT 2.51 x10e6/uL (3.6-5.1); RED CELL DISTRIBUTION WIDTH 15.7 % (11.7-14.4)
[2021-12-06 06:33] LABS: ANION GAP 13.4 mmol/L (8-16); CALCIUM 8.2 mg/dL (8.4-10.2); CREATININE, SERUM 1.37 mg/dL (0.57-1.11); POTASSIUM 4.4 mmol/L (3.5-5.1)
[2021-12-06] MEDS: FUROSEMIDE 40 MG TAB PO SCH (09:00)
[2021-12-06] MEDS: LISINOPRIL 2.5 MG TAB PO SCH (09:00)
[2021-12-06] MEDS: AMLODIPINE BESYLATE 5 MG TAB PO SCH (09:00)
[2021-12-06] MEDS: METOPROLOL SUCCINATE 25 MG TAB XL PO SCH (09:00)
[2021-12-06] MEDS: GLIMEPIRIDE 2 MG TAB PO SCH (09:00)
[2021-12-06] MEDS ORDERED: DEXTROSE 50% SYRINGE 50 ML IV ONE ×2 (10:21→11:00)
[2021-12-06] MEDS ORDERED: DEXTROSE 5%/0.45% SOD CHL 1,000 ML IV SCH (10:30)
[2021-12-06] MEDS ORDERED: PROPOFOL IV EMULSION 10 MG/ML 20 ML VIAL ONE (13:55)
[2021-12-06 17:32] LABS: HEMATOCRIT 23.5 % (34.2-44.1); HEMOGLOBIN 7.3 g/dL (12.0-16.0)
[2021-12-06] MEDS ORDERED: INSULIN LISPRO 100 UNIT/1 ML 3ML VIAL SQ SCH (21:00)
[2021-12-06] MEDS: SIMVASTATIN 20 MG TAB PO SCH (21:48)
[2021-12-06] MEDS: INSULIN LISPRO 100 UNIT/1 ML 3ML VIAL SQ SCH (21:54)
[2021-12-07 04:52] VITALS: BP 121/50
[2021-12-07] MEDS: INSULIN LISPRO 100 UNIT/1 ML 3ML VIAL SQ SCH ×4 (07:30→21:00)
[2021-12-07 07:54] VITALS: BP 119/50
[2021-12-07 08:00] VITALS: BP 119/50
[2021-12-07] MEDS: GLIMEPIRIDE 2 MG TAB PO SCH (08:49)
[2021-12-07] MEDS: AMLODIPINE BESYLATE 5 MG TAB PO SCH (08:50)
[2021-12-07] MEDS: LISINOPRIL 2.5 MG TAB PO SCH (08:50)
[2021-12-07] MEDS: METOPROLOL SUCCINATE 25 MG TAB XL PO SCH (08:51)
[2021-12-07] MEDS: FUROSEMIDE 40 MG TAB PO SCH (08:53)
[2021-12-07 10:01] LABS: BASOPHILS % 0.2 % (0.0-1.0); EOSINOPHILS # (AUTO) 0.1 (0.0-0.4); EOSINOPHILS % 1.9 % (0.0-6.0); LYMPHOCYTES # (AUTO) 0.4 (1.0-3.2); LYMPHOCYTES % 9.1 % (18.0-39.1); MEAN CORPUSCULAR HEMOGLOBIN 28.6 pg (28-32); MEAN CORPUSCULAR HGB CONC 30.9 g/dL (31-35); MEAN CORPUSCULAR VOLUME 92.5 fL (81-99); MONOCYTES # (AUTO) 0.5 (0.2-0.8); MONOCYTES % 9.9 % (4.4-11.3); NEUTROPHILS # (AUTO) 3.8 (2.1-6.9); NEUTROPHILS % 78.1 % (38.7-80.0); PLATELET COUNT 62 x10e3/uL (140-360); RED BLOOD COUNT 2.55 x10e6/uL (3.6-5.1); RED CELL DISTRIBUTION WIDTH 15.4 % (11.7-14.4)
[2021-12-07 10:03] LABS: HEMOGLOBIN 7.4 g/dL (12.0-16.0)
[2021-12-07 10:16] LABS: ALBUMIN 2.6 g/dL (3.5-5.0); ALBUMIN/GLOBULIN RATIO 0.7 (0.8-2.0); ANION GAP 14.4 mmol/L (8-16); CALCIUM 8.2 mg/dL (8.4-10.2); CREATININE, SERUM 1.34 mg/dL (0.57-1.11); POTASSIUM 4.4 mmol/L (3.5-5.1)
[2021-12-07 11:59] VITALS: BP 149/63
[2021-12-07 15:56] VITALS: BP 125/59
[2021-12-07 20:00] VITALS: BP 109/72
[2021-12-07] MEDS: SIMVASTATIN 20 MG TAB PO SCH (22:07)
[2021-12-08] VITALS: BP 114/50
[2021-12-08 01:12] LABS: BASOPHILS % 0.3 % (0.0-1.0); EOSINOPHILS # (AUTO) 0.1 (0.0-0.4); EOSINOPHILS % 2.3 % (0.0-6.0); LYMPHOCYTES # (AUTO) 0.7 (1.0-3.2); LYMPHOCYTES % 17.6 % (18.0-39.1); MEAN CORPUSCULAR HEMOGLOBIN 28.4 pg (28-32); MEAN CORPUSCULAR HGB CONC 31.2 g/dL (31-35); MEAN CORPUSCULAR VOLUME 91.1 fL (81-99); MONOCYTES # (AUTO) 0.4 (0.2-0.8); MONOCYTES % 11.1 % (4.4-11.3); NEUTROPHILS # (AUTO) 2.6 (2.1-6.9); NEUTROPHILS % 68.2 % (38.7-80.0); PLATELET COUNT 62 x10e3/uL (140-360); RED BLOOD COUNT 2.36 x10e6/uL (3.6-5.1); RED CELL DISTRIBUTION WIDTH 15.4 % (11.7-14.4)
[2021-12-08 01:14] LABS: HEMATOCRIT 21.5 % (34.2-44.1); HEMOGLOBIN 6.7 g/dL (12.0-16.0)
[2021-12-08] MEDS ORDERED: SODIUM CHLORIDE 0.9% 250ML 250 ML IV ONE (01:30)
[2021-12-08 04:00] VITALS: BP 126/55
[2021-12-08 06:05] LABS: EOSINOPHILS # (AUTO) 0.1 (0.0-0.4); EOSINOPHILS % 1.9 % (0.0-6.0); LYMPHOCYTES # (AUTO) 0.6 (1.0-3.2); LYMPHOCYTES % 15.3 % (18.0-39.1); MEAN CORPUSCULAR HEMOGLOBIN 28.3 pg (28-32); MEAN CORPUSCULAR HGB CONC 30.9 g/dL (31-35); MEAN CORPUSCULAR VOLUME 91.7 fL (81-99); MONOCYTES # (AUTO) 0.5 (0.2-0.8); MONOCYTES % 13.9 % (4.4-11.3); NEUTROPHILS # (AUTO) 2.5 (2.1-6.9); NEUTROPHILS % 68.4 % (38.7-80.0); PLATELET COUNT 63 x10e3/uL (140-360); RED CELL DISTRIBUTION WIDTH 15.3 % (11.7-14.4)
[2021-12-08] MEDS ORDERED: SODIUM CHLORIDE 0.9% 250ML 250 ML ONE ×2 (06:05→11:14)
[2021-12-08 06:11] LABS: HEMOGLOBIN 6.8 g/dL (12.0-16.0)
[2021-12-08 06:27] LABS: ANION GAP 10.3 mmol/L (8-16); CALCIUM 8.6 mg/dL (8.4-10.2); CREATININE, SERUM 1.33 mg/dL (0.57-1.11); POTASSIUM 4.3 mmol/L (3.5-5.1)
[2021-12-08] MEDS: INSULIN LISPRO 100 UNIT/1 ML 3ML VIAL SQ SCH ×4 (07:30→21:29)
[2021-12-08] MEDS: LISINOPRIL 2.5 MG TAB PO SCH (08:33)
[2021-12-08] MEDS: GLIMEPIRIDE 2 MG TAB PO SCH (08:33)
[2021-12-08] MEDS: FUROSEMIDE 40 MG TAB PO SCH (08:33)
[2021-12-08] MEDS: AMLODIPINE BESYLATE 5 MG TAB PO SCH (08:33)
[2021-12-08] MEDS: METOPROLOL SUCCINATE 25 MG TAB XL PO SCH (08:33)
[2021-12-08 08:47] VITALS: BP 145/53
[2021-12-08 16:26] VITALS: BP 132/57
[2021-12-08 20:00] VITALS: BP 152/57
[2021-12-08] MEDS: SIMVASTATIN 20 MG TAB PO SCH (21:29)
[2021-12-08 21:40] VITALS: BP 152/57
[2021-12-09] VITALS (8 sets, daily range): BP systolic 133–155; BP diastolic 53–95
[2021-12-09 06:11] LABS: BASOPHILS % 0.3 % (0.0-1.0); EOSINOPHILS # (AUTO) 0.1 (0.0-0.4); EOSINOPHILS % 2.1 % (0.0-6.0); HEMATOCRIT 27.4 % (34.2-44.1); HEMOGLOBIN 8.4 g/dL (12.0-16.0); LYMPHOCYTES # (AUTO) 0.6 (1.0-3.2); LYMPHOCYTES % 16.5 % (18.0-39.1); MEAN CORPUSCULAR HEMOGLOBIN 28.1 pg (28-32); MEAN CORPUSCULAR HGB CONC 30.7 g/dL (31-35); MEAN CORPUSCULAR VOLUME 91.6 fL (81-99); MONOCYTES # (AUTO) 0.6 (0.2-0.8); MONOCYTES % 16.8 % (4.4-11.3); NEUTROPHILS # (AUTO) 2.4 (2.1-6.9); NEUTROPHILS % 63.5 % (38.7-80.0); PLATELET COUNT 68 x10e3/uL (140-360); RED BLOOD COUNT 2.99 x10e6/uL (3.6-5.1); RED CELL DISTRIBUTION WIDTH 14.9 % (11.7-14.4)
[2021-12-09 06:44] LABS: ANION GAP 9.2 mmol/L (8-16); CALCIUM 8.8 mg/dL (8.4-10.2); CREATININE, SERUM 1.29 mg/dL (0.57-1.11); POTASSIUM 4.2 mmol/L (3.5-5.1)
[2021-12-09] MEDS: INSULIN LISPRO 100 UNIT/1 ML 3ML VIAL SQ SCH ×4 (07:30→19:44)
[2021-12-09] MEDS: METOPROLOL SUCCINATE 25 MG TAB XL PO SCH (08:02)
[2021-12-09] MEDS: AMLODIPINE BESYLATE 5 MG TAB PO SCH (08:56)
[2021-12-09] MEDS: GLIMEPIRIDE 2 MG TAB PO SCH (08:56)
[2021-12-09] MEDS: FUROSEMIDE 40 MG TAB PO SCH (08:56)
[2021-12-09] MEDS: LISINOPRIL 2.5 MG TAB PO SCH (08:57)
[2021-12-09] MEDS ORDERED: BISACODYL 5 MG TAB EC PO ONE ×2 (19:45→20:15)
[2021-12-09] MEDS: SIMVASTATIN 20 MG TAB PO SCH (20:30)
[2021-12-09] MEDS ORDERED: CITRATE OF MAGNESIA 300ML BOTTLE PO ONE (23:00)
[2021-12-10] VITALS (8 sets, daily range): BP systolic 126–132; BP diastolic 54–61
[2021-12-10] MEDS ORDERED: CITRATE OF MAGNESIA 300ML BOTTLE PO ONE (05:00)
[2021-12-10 06:03] LABS: BASOPHILS % 0.3 % (0.0-1.0); EOSINOPHILS # (AUTO) 0.1 (0.0-0.4); EOSINOPHILS % 3.3 % (0.0-6.0); HEMATOCRIT 25.7 % (34.2-44.1); LYMPHOCYTES # (AUTO) 0.7 (1.0-3.2); LYMPHOCYTES % 16.8 % (18.0-39.1); MEAN CORPUSCULAR HEMOGLOBIN 28.7 pg (28-32); MEAN CORPUSCULAR HGB CONC 31.1 g/dL (31-35); MEAN CORPUSCULAR VOLUME 92.1 fL (81-99); MONOCYTES # (AUTO) 0.6 (0.2-0.8); NEUTROPHILS # (AUTO) 2.5 (2.1-6.9); NEUTROPHILS % 62.8 % (38.7-80.0); PLATELET COUNT 77 x10e3/uL (140-360); RED BLOOD COUNT 2.79 x10e6/uL (3.6-5.1); RED CELL DISTRIBUTION WIDTH 14.6 % (11.7-14.4)
[2021-12-10] MEDS: INSULIN LISPRO 100 UNIT/1 ML 3ML VIAL SQ SCH ×4 (07:30→21:00)
[2021-12-10] MEDS: AMLODIPINE BESYLATE 5 MG TAB PO SCH (08:32)
[2021-12-10] MEDS: GLIMEPIRIDE 2 MG TAB PO SCH (08:32)
[2021-12-10] MEDS: FUROSEMIDE 40 MG TAB PO SCH (08:32)
[2021-12-10] MEDS: LISINOPRIL 2.5 MG TAB PO SCH (08:33)
[2021-12-10] MEDS: METOPROLOL SUCCINATE 25 MG TAB XL PO SCH (09:00)
[2021-12-10] MEDS ORDERED: DEXTROSE 5%/0.45% SOD CHL 1,000 ML IV ONE (12:45)
[2021-12-10] MEDS ORDERED: HYOSCYAMINE SULFATE 0.5 MG/ML INJ ONE (13:04)
[2021-12-10] MEDS ORDERED: PROPOFOL IV EMULSION 10 MG/ML 20 ML VIAL ONE (13:04)
[2021-12-10] MEDS ORDERED: MIDAZOLAM HCL 2 MG/2 ML VIAL ONE (13:27)
[2021-12-10] MEDS ORDERED: FENTANYL CITRATE/PF 100MCG/2 ML INJ ONE (13:27)
[2021-12-10] MEDS ORDERED: HEPARIN SOD (PORCINE) 1000 UNIT/ML SDV ONE (20:41)
[2021-12-10] MEDS: SIMVASTATIN 20 MG TAB PO SCH (22:40)
[2021-12-11] VITALS (8 sets, daily range): BP systolic 122–166; BP diastolic 52–73
[2021-12-11 05:41] LABS: HEMATOCRIT 27.5 % (34.2-44.1); HEMOGLOBIN 8.5 g/dL (12.0-16.0)
[2021-12-11] MEDS: INSULIN LISPRO 100 UNIT/1 ML 3ML VIAL SQ SCH ×4 (07:30→21:10)
[2021-12-11] MEDS: GLIMEPIRIDE 2 MG TAB PO SCH (08:19)
[2021-12-11] MEDS: AMLODIPINE BESYLATE 5 MG TAB PO SCH (08:20)
[2021-12-11] MEDS: LISINOPRIL 2.5 MG TAB PO SCH (08:20)
[2021-12-11] MEDS: FUROSEMIDE 40 MG TAB PO SCH (08:20)
[2021-12-11] MEDS: METOPROLOL SUCCINATE 25 MG TAB XL PO SCH (08:21)
[2021-12-11] MEDS: ONDANSETRON HCL 4 MG ORAL DISINTEGRATING TAB PO PRN (14:11)
[2021-12-11] MEDS ORDERED: METOCLOPRAMIDE HCL 10 MG/2ML VIAL IV ONE (16:30)
[2021-12-11] MEDS: Morphine 2mg Syringe 2 MG/ML SYR IV PRN (18:35)
[2021-12-11] MEDS: SIMVASTATIN 20 MG TAB PO SCH (21:10)
[2021-12-12] VITALS (7 sets, daily range): BP systolic 132–141; BP diastolic 46–73
[2021-12-12] MEDS: INSULIN LISPRO 100 UNIT/1 ML 3ML VIAL SQ SCH ×4 (07:30→21:00)
[2021-12-12 09:40] LABS: BASOPHILS % 0.1 % (0.0-1.0); EOSINOPHILS % 0.1 % (0.0-6.0); HEMATOCRIT 27.6 % (34.2-44.1); HEMOGLOBIN 8.7 g/dL (12.0-16.0); LYMPHOCYTES # (AUTO) 0.2 (1.0-3.2); LYMPHOCYTES % 2.8 % (18.0-39.1); MEAN CORPUSCULAR HEMOGLOBIN 28.2 pg (28-32); MEAN CORPUSCULAR HGB CONC 31.5 g/dL (31-35); MEAN CORPUSCULAR VOLUME 89.3 fL (81-99); MONOCYTES # (AUTO) 0.9 (0.2-0.8); NEUTROPHILS # (AUTO) 7.4 (2.1-6.9); NEUTROPHILS % 86.1 % (38.7-80.0); PLATELET COUNT 116 x10e3/uL (140-360); RED BLOOD COUNT 3.09 x10e6/uL (3.6-5.1); RED CELL DISTRIBUTION WIDTH 14.6 % (11.7-14.4)
[2021-12-12 09:59] LABS: ANION GAP 9.8 mmol/L (8-16); CALCIUM 9.3 mg/dL (8.4-10.2); CREATININE, SERUM 1.08 mg/dL (0.57-1.11); POTASSIUM 3.8 mmol/L (3.5-5.1)
[2021-12-12 10:28] LABS: BAND NEUTROPHILS % (MANUAL) 4 %; LYMPHOCYTES % (MANUAL) 4 % (19-48); MONOCYTES % (MANUAL) 4 % (3.4-9.0); NEUTROPHILS % (MANUAL) 88 % (40-74); PLATELET ESTIMATE SLIGHTLY DECREASED; PLATELET MORPHOLOGY COMMENT NORMAL; RBC MORPHOLOGY COMMENT NORMAL
[2021-12-12] MEDS: FUROSEMIDE 40 MG TAB PO SCH (17:23)
[2021-12-12] MEDS: LISINOPRIL 2.5 MG TAB PO SCH (17:23)
[2021-12-12] MEDS: GLIMEPIRIDE 2 MG TAB PO SCH (17:23)
[2021-12-12] MEDS: AMLODIPINE BESYLATE 5 MG TAB PO SCH (17:23)
[2021-12-12] MEDS: METOPROLOL SUCCINATE 25 MG TAB XL PO SCH (17:24)
[2021-12-12] MEDS: SIMVASTATIN 20 MG TAB PO SCH (21:16)
[2021-12-13] VITALS (8 sets, daily range): BP systolic 123–154; BP diastolic 52–79
[2021-12-13] MEDS ORDERED: MAGNESIUM HYDROXIDE 30 ML UDC PO ONE ×2 (00:45→13:30)
[2021-12-13 06:24] LABS: HEMATOCRIT 26.2 % (34.2-44.1); HEMOGLOBIN 8.3 g/dL (12.0-16.0)
[2021-12-13] MEDS: GLIMEPIRIDE 2 MG TAB PO SCH (07:30)
[2021-12-13] MEDS: INSULIN LISPRO 100 UNIT/1 ML 3ML VIAL SQ SCH ×4 (07:30→20:41)
[2021-12-13] MEDS: FUROSEMIDE 40 MG TAB PO SCH (09:00)
[2021-12-13] MEDS: AMLODIPINE BESYLATE 5 MG TAB PO SCH (09:00)
[2021-12-13] MEDS: METOPROLOL SUCCINATE 25 MG TAB XL PO SCH (09:00)
[2021-12-13] MEDS: LISINOPRIL 2.5 MG TAB PO SCH (09:00)
[2021-12-13] MEDS: Morphine 2mg Syringe 2 MG/ML SYR IV PRN (11:59)
[2021-12-13] MEDS ORDERED: SODIUM CHLORIDE 0.9% 500ML 500 ML IV ONE (14:30)
[2021-12-13] MEDS ORDERED: IOPAMIDOL 370 MG/ML 100 ML INFUS..BTL INJ ONE (16:36)
[2021-12-13] MEDS: DOCUSATE SODIUM 100 MG CAP PO SCH (17:00)
[2021-12-13] MEDS: SIMVASTATIN 20 MG TAB PO SCH (20:45)
[2021-12-14] VITALS (8 sets, daily range): BP systolic 107–141; BP diastolic 49–77
[2021-12-14] MEDS ORDERED: MAGNESIUM HYDROXIDE 30 ML UDC PO ONE (01:30)
[2021-12-14 05:33] LABS: BASOPHILS % 0.1 % (0.0-1.0); HEMATOCRIT 26.3 % (34.2-44.1); HEMOGLOBIN 8.3 g/dL (12.0-16.0); LYMPHOCYTES # (AUTO) 0.2 (1.0-3.2); LYMPHOCYTES % 3.2 % (18.0-39.1); MEAN CORPUSCULAR HEMOGLOBIN 28.2 pg (28-32); MEAN CORPUSCULAR HGB CONC 31.6 g/dL (31-35); MEAN CORPUSCULAR VOLUME 89.5 fL (81-99); MONOCYTES # (AUTO) 0.9 (0.2-0.8); MONOCYTES % 11.3 % (4.4-11.3); NEUTROPHILS # (AUTO) 6.4 (2.1-6.9); NEUTROPHILS % 84.7 % (38.7-80.0); PLATELET COUNT 103 x10e3/uL (140-360); RED BLOOD COUNT 2.94 x10e6/uL (3.6-5.1); RED CELL DISTRIBUTION WIDTH 15.1 % (11.7-14.4)
[2021-12-14] MEDS: Morphine 2mg Syringe 2 MG/ML SYR IV PRN (07:28)
[2021-12-14] MEDS: INSULIN LISPRO 100 UNIT/1 ML 3ML VIAL SQ SCH ×4 (07:30→20:42)
[2021-12-14] MEDS ORDERED: MAGNESIUM HYDROXIDE 30 ML UDC PO PRN (09:00)
[2021-12-14] MEDS: FUROSEMIDE 40 MG TAB PO SCH (09:02)
[2021-12-14] MEDS: AMLODIPINE BESYLATE 5 MG TAB PO SCH (09:02)
[2021-12-14] MEDS: DOCUSATE SODIUM 100 MG CAP PO SCH ×2 (09:02→17:03)
[2021-12-14] MEDS: LISINOPRIL 2.5 MG TAB PO SCH (09:03)
[2021-12-14] MEDS: METOPROLOL SUCCINATE 25 MG TAB XL PO SCH (09:03)
[2021-12-14 09:26] LABS: BAND NEUTROPHILS % (MANUAL) 2 %; LYMPHOCYTES % (MANUAL) 4 % (19-48); MONOCYTES % (MANUAL) 11 % (3.4-9.0); MYELOCYTES % (MANUAL) 2 % (0-0); NEUTROPHILS % (MANUAL) 81 % (40-74); PLATELET ESTIMATE SLIGHTLY DECREASED
[2021-12-14 09:27] LABS: PLATELET MORPHOLOGY COMMENT NORMAL; RBC MORPHOLOGY COMMENT NORMAL
[2021-12-14] MEDS: SIMVASTATIN 20 MG TAB PO SCH (20:59)
[2021-12-15 04:00] VITALS: BP 126/68
[2021-12-15 06:24] LABS: BASOPHILS % 0.4 % (0.0-1.0); EOSINOPHILS # (AUTO) 0.1 (0.0-0.4); EOSINOPHILS % 1.1 % (0.0-6.0); HEMATOCRIT 23.7 % (34.2-44.1); HEMOGLOBIN 7.3 g/dL (12.0-16.0); LYMPHOCYTES # (AUTO) 0.3 (1.0-3.2); LYMPHOCYTES % 7.4 % (18.0-39.1); MEAN CORPUSCULAR HEMOGLOBIN 27.8 pg (28-32); MEAN CORPUSCULAR HGB CONC 30.8 g/dL (31-35); MEAN CORPUSCULAR VOLUME 90.1 fL (81-99); MONOCYTES # (AUTO) 0.7 (0.2-0.8); MONOCYTES % 14.3 % (4.4-11.3); NEUTROPHILS # (AUTO) 3.5 (2.1-6.9); NEUTROPHILS % 75.9 % (38.7-80.0); PLATELET COUNT 95 x10e3/uL (140-360); RED BLOOD COUNT 2.63 x10e6/uL (3.6-5.1); RED CELL DISTRIBUTION WIDTH 15.4 % (11.7-14.4)
[2021-12-15 06:32] LABS: ALBUMIN 2.1 g/dL (3.5-5.0); ALBUMIN/GLOBULIN RATIO 0.5 (0.8-2.0); ANION GAP 10.9 mmol/L (8-16); CALCIUM 8.8 mg/dL (8.4-10.2); CREATININE, SERUM 1.98 mg/dL (0.57-1.11); MAGNESIUM 2.9 MG/DL (1.3-2.1); POTASSIUM 3.9 mmol/L (3.5-5.1)
[2021-12-15] MEDS: INSULIN LISPRO 100 UNIT/1 ML 3ML VIAL SQ SCH ×4 (07:30→20:53)
[2021-12-15 08:00] VITALS: BP 154/73
[2021-12-15] MEDS: FUROSEMIDE 40 MG TAB PO SCH (08:49)
[2021-12-15] MEDS: DOCUSATE SODIUM 100 MG CAP PO SCH ×2 (08:49→16:35)
[2021-12-15] MEDS: AMLODIPINE BESYLATE 5 MG TAB PO SCH (08:49)
[2021-12-15] MEDS: LISINOPRIL 2.5 MG TAB PO SCH (09:01)
[2021-12-15] MEDS: METOPROLOL SUCCINATE 25 MG TAB XL PO SCH (09:02)
[2021-12-15] MEDS ORDERED: LACTULOSE SYRUP 20 GM/30 ML UDC PO PRN ×2 (13:00→16:00)
[2021-12-15] MEDS: ONDANSETRON HCL 4 MG ORAL DISINTEGRATING TAB PO PRN (13:15)
[2021-12-15] MEDS ORDERED: MINERAL OIL 132 ML BTL PR NR (14:45)
[2021-12-15 17:31] VITALS: BP 148/56
[2021-12-15 17:43] VITALS: BP 132/61
[2021-12-15] MEDS: Morphine 2mg Syringe 2 MG/ML SYR IV PRN (18:45)
[2021-12-15 20:00] VITALS: BP 122/65
[2021-12-15] MEDS: SIMVASTATIN 20 MG TAB PO SCH (20:55)
[2021-12-16] VITALS (7 sets, daily range): BP systolic 102–131; BP diastolic 56–91
[2021-12-16] MEDS ORDERED: MAGNESIUM HYDROXIDE 30 ML UDC PO ONE (01:30)
[2021-12-16 06:00] LABS: BASOPHILS % 0.4 % (0.0-1.0); EOSINOPHILS % 0.1 % (0.0-6.0); HEMATOCRIT 24.9 % (34.2-44.1); HEMOGLOBIN 7.8 g/dL (12.0-16.0); LYMPHOCYTES # (AUTO) 0.3 (1.0-3.2); LYMPHOCYTES % 2.9 % (18.0-39.1); MEAN CORPUSCULAR HEMOGLOBIN 27.6 pg (28-32); MEAN CORPUSCULAR HGB CONC 31.3 g/dL (31-35); MONOCYTES # (AUTO) 1.1 (0.2-0.8); MONOCYTES % 11.8 % (4.4-11.3); NEUTROPHILS # (AUTO) 7.7 (2.1-6.9); NEUTROPHILS % 84.3 % (38.7-80.0); PLATELET COUNT 110 x10e3/uL (140-360); RED BLOOD COUNT 2.83 x10e6/uL (3.6-5.1); RED CELL DISTRIBUTION WIDTH 15.4 % (11.7-14.4)
[2021-12-16 06:26] LABS: ALBUMIN/GLOBULIN RATIO 0.5 (0.8-2.0); ANION GAP 12.9 mmol/L (8-16); CALCIUM 8.8 mg/dL (8.4-10.2); CREATININE, SERUM 2.08 mg/dL (0.57-1.11); MAGNESIUM 2.9 MG/DL (1.3-2.1); POTASSIUM 3.9 mmol/L (3.5-5.1)
[2021-12-16 06:57] LABS: AMYLASE 42 U/L (25-125); LIPASE 903 U/L (8-78)
[2021-12-16] MEDS: Morphine 2mg Syringe 2 MG/ML SYR IV PRN (07:30)
[2021-12-16] MEDS: INSULIN LISPRO 100 UNIT/1 ML 3ML VIAL SQ SCH ×4 (07:30→20:57)
[2021-12-16] MEDS: METOPROLOL SUCCINATE 25 MG TAB XL PO SCH (09:00)
[2021-12-16] MEDS: DOCUSATE SODIUM 100 MG CAP PO SCH ×2 (09:00→16:52)
[2021-12-16] MEDS: AMLODIPINE BESYLATE 5 MG TAB PO SCH (10:16)
[2021-12-17] VITALS (7 sets, daily range): BP systolic 108–150; BP diastolic 60–70
[2021-12-17 05:47] LABS: ALBUMIN 1.7 g/dL (3.5-5.0); ALBUMIN/GLOBULIN RATIO 0.4 (0.8-2.0); ANION GAP 11.9 mmol/L (8-16); CALCIUM 8.6 mg/dL (8.4-10.2); CREATININE, SERUM 1.99 mg/dL (0.57-1.11); POTASSIUM 3.9 mmol/L (3.5-5.1)
[2021-12-17 07:09] LABS: BASOPHILS % 0.2 % (0.0-1.0); HEMATOCRIT 25.1 % (34.2-44.1); HEMOGLOBIN 7.9 g/dL (12.0-16.0); LYMPHOCYTES # (AUTO) 0.4 (1.0-3.2); LYMPHOCYTES % 2.3 % (18.0-39.1); MEAN CORPUSCULAR HEMOGLOBIN 27.8 pg (28-32); MEAN CORPUSCULAR HGB CONC 31.5 g/dL (31-35); MEAN CORPUSCULAR VOLUME 88.4 fL (81-99); MONOCYTES # (AUTO) 1.5 (0.2-0.8); MONOCYTES % 8.8 % (4.4-11.3); PLATELET COUNT 130 x10e3/uL (140-360); RED BLOOD COUNT 2.84 x10e6/uL (3.6-5.1); RED CELL DISTRIBUTION WIDTH 15.9 % (11.7-14.4)
[2021-12-17] MEDS: INSULIN LISPRO 100 UNIT/1 ML 3ML VIAL SQ SCH ×4 (07:30→20:25)
[2021-12-17] MEDS: METOPROLOL SUCCINATE 25 MG TAB XL PO SCH (09:00)
[2021-12-17] MEDS: DOCUSATE SODIUM 100 MG CAP PO SCH ×2 (09:00→17:00)
[2021-12-17] MEDS: AMLODIPINE BESYLATE 5 MG TAB PO SCH (09:00)
[2021-12-17 12:15] LABS: ALBUMIN 1.8 g/dL (3.5-5.0); BILIRUBIN,DIRECT 6.5 mg/dL (0.0-0.5)
[2021-12-17 12:21] LABS: BASOPHILS % 0.2 % (0.0-1.0); EOSINOPHILS % 0.2 % (0.0-6.0); HEMATOCRIT 24.9 % (34.2-44.1); HEMOGLOBIN 7.9 g/dL (12.0-16.0); LYMPHOCYTES # (AUTO) 0.4 (1.0-3.2); LYMPHOCYTES % 1.9 % (18.0-39.1); MEAN CORPUSCULAR HEMOGLOBIN 27.8 pg (28-32); MEAN CORPUSCULAR HGB CONC 31.7 g/dL (31-35); MEAN CORPUSCULAR VOLUME 87.7 fL (81-99); MONOCYTES # (AUTO) 2.1 (0.2-0.8); MONOCYTES % 10.1 % (4.4-11.3); NEUTROPHILS # (AUTO) 17.5 (2.1-6.9); NEUTROPHILS % 86.2 % (38.7-80.0); PLATELET COUNT 135 x10e3/uL (140-360); RED BLOOD COUNT 2.84 x10e6/uL (3.6-5.1); RED CELL DISTRIBUTION WIDTH 15.8 % (11.7-14.4)
[2021-12-17] MEDS ORDERED: METRONIDAZOLE 500MG/NS 100ML 100 ML IV ONE (12:30)
[2021-12-17] MEDS ORDERED: LEVOFLOXACIN 500MG/D5W 100ML 100 ML IV ONE (13:00)
[2021-12-17] MEDS ORDERED: SODIUM CHLORIDE 0.9% 250ML 250 ML ONE (13:06)
[2021-12-17] MEDS: METRONIDAZOLE 500MG/NS 100ML 100 ML IV SCH (17:45)
[2021-12-17] MEDS: DEXTROSE 50% SYRINGE 50 ML IV PRN (20:27)
[2021-12-18] VITALS (17 sets, daily range): BP systolic 66–157; BP diastolic 42–87
[2021-12-18] MEDS: METRONIDAZOLE 500MG/NS 100ML 100 ML IV SCH ×5 (05:33→23:48)
[2021-12-18 06:48] LABS: BASOPHILS # (AUTO) 0.1 (0.0-0.1); BASOPHILS % 0.6 % (0.0-1.0); HEMATOCRIT 25.6 % (34.2-44.1); LYMPHOCYTES # (AUTO) 0.2 (1.0-3.2); LYMPHOCYTES % 1.6 % (18.0-39.1); MEAN CORPUSCULAR HEMOGLOBIN 27.4 pg (28-32); MEAN CORPUSCULAR HGB CONC 31.3 g/dL (31-35); MEAN CORPUSCULAR VOLUME 87.7 fL (81-99); MONOCYTES # (AUTO) 0.7 (0.2-0.8); MONOCYTES % 5.5 % (4.4-11.3); NEUTROPHILS # (AUTO) 11.4 (2.1-6.9); PLATELET COUNT 124 x10e3/uL (140-360); RED BLOOD COUNT 2.92 x10e6/uL (3.6-5.1); RED CELL DISTRIBUTION WIDTH 16.2 % (11.7-14.4)
[2021-12-18 07:12] LABS: ALBUMIN 1.5 g/dL (3.5-5.0); ALBUMIN/GLOBULIN RATIO 0.3 (0.8-2.0); ANION GAP 12.9 mmol/L (8-16); CALCIUM 8.8 mg/dL (8.4-10.2); CREATININE, SERUM 1.73 mg/dL (0.57-1.11); POTASSIUM 3.9 mmol/L (3.5-5.1)
[2021-12-18] MEDS: INSULIN LISPRO 100 UNIT/1 ML 3ML VIAL SQ SCH ×4 (07:30→21:00)
[2021-12-18] MEDS: DEXTROSE 50% SYRINGE 50 ML IV PRN (07:41)
[2021-12-18] MEDS: DOCUSATE SODIUM 100 MG CAP PO SCH ×2 (09:00→17:00)
[2021-12-18] MEDS: METOPROLOL SUCCINATE 25 MG TAB XL PO SCH (09:00)
[2021-12-18] MEDS: AMLODIPINE BESYLATE 5 MG TAB PO SCH (09:00)
[2021-12-18] MEDS ORDERED: DEXTROSE 5%/0.9% SOD CHL 1,000 ML IV ONE ×2 (09:00→21:59)
[2021-12-18 10:31] LABS: BAND NEUTROPHILS % (MANUAL) 5 %; LYMPHOCYTES % (MANUAL) 2 % (19-48); MONOCYTES % (MANUAL) 5 % (3.4-9.0); NEUTROPHILS % (MANUAL) 88 % (40-74)
[2021-12-18 10:32] LABS: ANISOCYTOSIS SLIGHT; HYPOCHROMASIA SLIGHT; PLATELET ESTIMATE SLIGHTLY DECREASED; PLATELET MORPHOLOGY COMMENT NORMAL; RBC MORPHOLOGY COMMENT NORMAL
[2021-12-18] MEDS ORDERED: ROCURONIUM BROMIDE 10 MG/ML 5ML VIAL IV ONE (12:57)
[2021-12-18] MEDS ORDERED: POVIDONE IODINE 0.05% 0.05 % ML PO ONE (12:57)
[2021-12-18] MEDS ORDERED: SUCCINYLCHOLINE CHLORIDE 20 MG/ML 10ML VIAL ONE (12:57)
[2021-12-18] MEDS ORDERED: PHENYLEPHRINE HCL 1% 10 MG/ML VIAL ONE (12:57)
[2021-12-18] MEDS ORDERED: LIDOCAINE HCL 2% LOCAL INJ 5 ML SDV VIAL INJ ONE (12:57)
[2021-12-18] MEDS ORDERED: PROPOFOL IV EMULSION 10 MG/ML 20 ML VIAL ONE (12:57)
[2021-12-18] MEDS ORDERED: GLUCAGON FOR INJ 1 MG VIAL ONE (12:57)
[2021-12-18] MEDS ORDERED: LEVOFLOXACIN 500MG/D5W 100ML 100 ML IV SCH (13:00)
[2021-12-18] MEDS: Morphine 2mg Syringe 2 MG/ML SYR IV PRN (14:25)
[2021-12-18] MEDS: ONDANSETRON HCL INJ 2MG/ML 2ML 2 MG/ML VIAL IV PRN (15:35)
[2021-12-18] MEDS ORDERED: SODIUM CHLORIDE 0.9% 1000ML 1,000 ML ONE (15:56)
[2021-12-18] MEDS ORDERED: DEXTROSE 50% SYRINGE 50 ML IV ONE (16:08)
[2021-12-18 16:20] LABS: BASOPHILS % 0.2 % (0.0-1.0); HEMATOCRIT 23.4 % (34.2-44.1); HEMOGLOBIN 7.3 g/dL (12.0-16.0); LYMPHOCYTES # (AUTO) 0.1 (1.0-3.2); LYMPHOCYTES % 1.2 % (18.0-39.1); MEAN CORPUSCULAR HEMOGLOBIN 27.5 pg (28-32); MEAN CORPUSCULAR HGB CONC 31.2 g/dL (31-35); MEAN CORPUSCULAR VOLUME 88.3 fL (81-99); MONOCYTES # (AUTO) 0.4 (0.2-0.8); MONOCYTES % 3.7 % (4.4-11.3); NEUTROPHILS # (AUTO) 8.9 (2.1-6.9); NEUTROPHILS % 84.4 % (38.7-80.0); PLATELET COUNT 94 x10e3/uL (140-360); RED BLOOD COUNT 2.65 x10e6/uL (3.6-5.1); RED CELL DISTRIBUTION WIDTH 16.5 % (11.7-14.4)
[2021-12-18 16:26] LABS: INR 1.68; PROTHROMBIN TIME 21.1 seconds (11.9-14.5)
[2021-12-18 16:27] LABS: PARTIAL THROMBOPLASTIN TIME 41.5 seconds (23.8-35.5)
[2021-12-18] MEDS ORDERED: SODIUM CHLORIDE 0.9% 1000ML 1,000 ML IV ONE ×3 (16:30→19:15)
[2021-12-18 16:35] LABS: ALANINE AMINOTRANSFERASE 119 IU/L (0-55); ALBUMIN 1.4 g/dL (3.5-5.0); ALBUMIN/GLOBULIN RATIO 0.4 (0.8-2.0); ALKALINE PHOSPHATASE 828 IU/L (40-150); ANION GAP 13.6 mmol/L (8-16); BLOOD UREA NITROGEN 50 mg/dL (7-26); BUN/CREATININE RATIO 24 (6-25); CARBON DIOXIDE 25 mmol/L (22-29); CHLORIDE 105 mmol/L (98-107); CREATININE, SERUM 2.12 mg/dL (0.57-1.11); GLUCOSE 133 mg/dL (74-118); POTASSIUM 3.6 mmol/L (3.5-5.1); SODIUM 140 mmol/L (136-145)
[2021-12-18 16:36] LABS: CREATINE KINASE < 7 IU/L (29-168)
[2021-12-18] MEDS ORDERED: DEXTROSE 10% 1,000 ML IV ONE ×2 (17:00→17:30)
[2021-12-18 17:08] LABS: ABG PCO2 45 mmHg (35-45); ABG PH 7.36 (7.35-7.45)
[2021-12-18 17:09] LABS: ABG HCO3 25 mmol/L (22-26); ABG PO2 76 mmHg (80-105); ABG TCO2 27
[2021-12-18] MEDS: NOREPINEPHRINE 8 MG/D5W 250 ML 250 ML IV SCH (17:21)
[2021-12-18] MEDS ORDERED: Vancomycin IV 1 GM in SODIUM CHLORIDE 0.9% 250ML 250 ML IV ONE (17:30)
[2021-12-18] MEDS ORDERED: MEROPENEM 1 GM in SODIUM CHLORIDE 0.9% 100 ML IV STA (18:52)
[2021-12-18] MEDS ORDERED: SODIUM CHLORIDE 0.9% 250ML 250 ML IV ONE (18:55)
[2021-12-18] MEDS: MEROPENEM 1 GM in SODIUM CHLORIDE 0.9% 100 ML IV SCH (18:58)
[2021-12-18] MEDS ORDERED: IOPAMIDOL 610MG/1ML 300 MG/ML VIAL IV ONE (19:34)
[2021-12-18] MEDS ORDERED: HEPARIN SOD/SOD CHLORIDE 1,000 ML ONE (19:41)
[2021-12-18] MEDS ORDERED: NOREPINEPHRINE INJ 4MG/4ML 4 ML ONE (20:32)
[2021-12-18] MEDS: FENTANYL 2000MCG/NS 250 250 ML IV PRN (21:30)
[2021-12-18 21:33] LABS: ABG PH 7.15 (7.35-7.45)
[2021-12-18 21:34] LABS: ABG PCO2 63 mmHg (35-45); ABG PO2 70 mmHg (80-105)
[2021-12-18 21:35] LABS: ABG HCO3 22 mmol/L (22-26); ABG TCO2 24
[2021-12-18] MEDS ORDERED: LACTATED RINGER'S 1,000 ML ONE (21:42)
[2021-12-18] MEDS ORDERED: DEXTROSE 5%/0.9% SOD CHL 1,000 ML IV SCH (21:45)
[2021-12-18] MEDS: VASOPRESSIN 60 UNIT in DEXTROSE 5% 50ML 57 ML IV PRN (23:00)
[2021-12-18 23:18] LABS: ABG HCO3 23 mmol/L (22-26); ABG PCO2 55 mmHg (35-45); ABG PH 7.22 (7.35-7.45); ABG PO2 157 mmHg (80-105); ABG TCO2 24
[2021-12-19] VITALS (90 sets, daily range): BP systolic 70–169; BP diastolic 42–92
[2021-12-19 00:37] LABS: HEMATOCRIT 27.1 % (34.2-44.1); HEMOGLOBIN 8.3 g/dL (12.0-16.0)
[2021-12-19] MEDS ORDERED: BISACODYL 10 MG SUPP PR ONE ×2 (01:45→01:50)
[2021-12-19] MEDS: PROPOFOL IV EMULSION 10MG/ML 100 ML IV PRN ×2 (02:00→17:52)
[2021-12-19] MEDS: NOREPINEPHRINE 8 MG/D5W 250 ML 250 ML IV SCH ×4 (02:14→21:30)
[2021-12-19] MEDS ORDERED: NOREPINEPHRINE 8 MG/D5W 250 ML 500 ML ONE (02:20)
[2021-12-19] MEDS ORDERED: VASOPRESSIN INJ 20 UNIT/ML VIAL ONE ×2 (03:39→03:40)
[2021-12-19] MEDS ORDERED: DEXTROSE 5% 100ML 100 ML IV ONE (03:40)
[2021-12-19 04:57] LABS: BASOPHILS % 0.1 % (0.0-1.0); HEMATOCRIT 26.5 % (34.2-44.1); HEMOGLOBIN 8.2 g/dL (12.0-16.0); LYMPHOCYTES # (AUTO) 0.3 (1.0-3.2); LYMPHOCYTES % 1.3 % (18.0-39.1); MEAN CORPUSCULAR HEMOGLOBIN 27.7 pg (28-32); MEAN CORPUSCULAR HGB CONC 30.9 g/dL (31-35); MEAN CORPUSCULAR VOLUME 89.5 fL (81-99); NEUTROPHILS % 86.9 % (38.7-80.0); PLATELET COUNT 162 x10e3/uL (140-360); RED BLOOD COUNT 2.96 x10e6/uL (3.6-5.1); RED CELL DISTRIBUTION WIDTH 17.4 % (11.7-14.4)
[2021-12-19 05:23] LABS: ALBUMIN 1.5 g/dL (3.5-5.0); ALBUMIN/GLOBULIN RATIO 0.3 (0.8-2.0); ANION GAP 18.8 mmol/L (8-16); CALCIUM 7.9 mg/dL (8.4-10.2); CREATININE, SERUM 2.51 mg/dL (0.57-1.11)
[2021-12-19] MEDS: METRONIDAZOLE 500MG/NS 100ML 100 ML IV SCH ×3 (05:26→17:41)
[2021-12-19 05:32] LABS: POTASSIUM 4.8 mmol/L (3.5-5.1)
[2021-12-19 05:54] LABS: MAGNESIUM 2.5 MG/DL (1.3-2.1); PHOSPHORUS 3.9 MG/DL (2.3-4.7)
[2021-12-19] MEDS: MEROPENEM 1 GM in SODIUM CHLORIDE 0.9% 100 ML IV SCH ×2 (05:57→17:50)
[2021-12-19 05:58] LABS: BAND NEUTROPHILS % (MANUAL) 5 %; METAMYELOCYTES % (MANUAL) 1 % (0-0); MONOCYTES % (MANUAL) 4 % (3.4-9.0); NEUTROPHILS % (MANUAL) 90 % (40-74)
[2021-12-19 06:01] LABS: ANISOCYTOSIS SLIG; BURR CELLS SLIGHT; HYPOCHROMASIA SLIGHT; PLATELET ESTIMATE ADEQUATE; PLATELET MORPHOLOGY COMMENT NORMAL; POIKILOCYTOSIS SLIGHT; RBC MORPHOLOGY COMMENT NORMAL
[2021-12-19] MEDS: METOPROLOL SUCCINATE 25 MG TAB XL PO SCH (08:08)
[2021-12-19] MEDS: DOCUSATE SODIUM 100 MG CAP PO SCH ×2 (08:08→15:21)
[2021-12-19] MEDS: ACETAMINOPHEN 325 MG TAB PO PRN (08:25)
[2021-12-19] MEDS: INSULIN LISPRO 100 UNIT/1 ML 3ML VIAL SQ SCH ×4 (08:26→21:34)
[2021-12-19] MEDS ORDERED: SODIUM BICARBONATE 8.4% 50 ML in SODIUM CHLORIDE 0.45% 1,000 ML IV SCH (08:45)
[2021-12-19 09:03] LABS: ABG HCO3 23 mmol/L (22-26); ABG PCO2 47 mmHg (35-45); ABG PO2 290 mmHg (80-105); ABG TCO2 24
[2021-12-19 09:35] LABS: INR 1.59; PROTHROMBIN TIME 20.3 seconds (11.9-14.5)
[2021-12-19 09:36] LABS: PARTIAL THROMBOPLASTIN TIME 35.2 seconds (23.8-35.5)
[2021-12-19] MEDS ORDERED: FUROSEMIDE INJ 10 MG/ML 4 ML VIAL IV ONE (10:00)
[2021-12-19] MEDS ORDERED: LEVOFLOXACIN 750MG/D5W 150ML 150 ML IV ONE (10:15)
[2021-12-19] MEDS: OCTREOTIDE ACETATE 0.05 MG/ML AMP SQ SCH ×2 (10:18→17:50)
[2021-12-19] MEDS: MIDODRINE HCL 5 MG TABLET PO SCH ×3 (10:18→16:06)
[2021-12-19] MEDS: FENTANYL 2000MCG/NS 250 250 ML IV PRN ×2 (10:33→23:53)
[2021-12-19] MEDS ORDERED: IOPAMIDOL 370 MG/ML 100 ML INFUS..BTL INJ ONE (11:10)
[2021-12-19] MEDS: ALBUMIN 25% 12.5GM 0.25 GM/ML BTL IV SCH ×3 (12:09→22:20)
[2021-12-19] MEDS: SODIUM BICARBONATE 8.4% 75 ML in SODIUM CHLORIDE 0.45% 1,000 ML IV SCH ×2 (12:09→22:31)
[2021-12-19] MEDS ORDERED: LIDOCAINE HCL 1% LOCAL INJ 20 ML VIAL ONE (12:39)
[2021-12-19] MEDS ORDERED: ALBUMIN 25% 25GM 100ML 0.25 GM/ML BTL IV ONE (14:15)
[2021-12-19 14:34] LABS: % IRON SATURATION 10 % (15-50); IRON 15 ug/dL (50-170); TOTAL IRON BINDING CAPACITY 150 ug/dL (261-478); TRANSFERRIN 107 mg/dL (180-382)
[2021-12-19] MEDS ORDERED: ALBUMIN 25% 25GM 100ML 100 ML IV ONE (14:45)
[2021-12-19 15:34] LABS: ABG HCO3 23 mmol/L (22-26); ABG PCO2 42 mmHg (35-45); ABG PH 7.34 (7.35-7.45); ABG PO2 79 mmHg (80-105); ABG TCO2 24
[2021-12-19] MEDS: METOPROLOL TARTRATE 25 MG TAB PO SCH (16:06)
[2021-12-19] MEDS: VASOPRESSIN 60 UNIT in DEXTROSE 5% 50ML 57 ML IV PRN (17:52)
[2021-12-20] VITALS (61 sets, daily range): BP systolic 82–146; BP diastolic 48–81
[2021-12-20] MEDS: METRONIDAZOLE 500MG/NS 100ML 100 ML IV SCH ×4 (00:05→17:43)
[2021-12-20] MEDS ORDERED: LORAZEPAM INJ 2 MG/ML VIAL IV ONE (01:00)
[2021-12-20] MEDS ORDERED: ATROPINE SULFATE 0.1 MG/ML 10ML SYR IV PRN (01:00)
[2021-12-20] MEDS: OCTREOTIDE ACETATE 0.05 MG/ML AMP SQ SCH ×3 (02:15→18:26)
[2021-12-20] MEDS: ALBUMIN 25% 12.5GM 0.25 GM/ML BTL IV SCH ×4 (04:20→22:30)
[2021-12-20 05:39] LABS: BASOPHILS % 0.2 % (0.0-1.0); HEMATOCRIT 21.9 % (34.2-44.1); LYMPHOCYTES % 6.5 % (18.0-39.1); MEAN CORPUSCULAR HEMOGLOBIN 27.1 pg (28-32); MEAN CORPUSCULAR VOLUME 84.9 fL (81-99); MONOCYTES # (AUTO) 1.2 (0.2-0.8); NEUTROPHILS % 84.3 % (38.7-80.0); PLATELET COUNT 121 x10e3/uL (140-360); RED BLOOD COUNT 2.58 x10e6/uL (3.6-5.1)
[2021-12-20 06:05] LABS: ALBUMIN 2.4 g/dL (3.5-5.0); ALBUMIN/GLOBULIN RATIO 0.7 (0.8-2.0); ANION GAP 14.8 mmol/L (8-16); CALCIUM 7.8 mg/dL (8.4-10.2); CREATININE, SERUM 2.95 mg/dL (0.57-1.11); MAGNESIUM 2.3 MG/DL (1.3-2.1); PHOSPHORUS 2.9 MG/DL (2.3-4.7); POTASSIUM 3.8 mmol/L (3.5-5.1)
[2021-12-20] MEDS: NOREPINEPHRINE 8 MG/D5W 250 ML 250 ML IV SCH (06:18)
[2021-12-20] MEDS: INSULIN LISPRO 100 UNIT/1 ML 3ML VIAL SQ SCH ×4 (06:33→23:57)
[2021-12-20] MEDS: MEROPENEM 1 GM in SODIUM CHLORIDE 0.9% 100 ML IV SCH ×2 (06:56→19:06)
[2021-12-20] MEDS: FENTANYL 2000MCG/NS 250 250 ML IV PRN ×2 (07:00→21:49)
[2021-12-20 07:28] LABS: ABG HCO3 24 mmol/L (22-26); ABG PCO2 37 mmHg (35-45); ABG PH 7.43 (7.35-7.45); ABG PO2 97 mmHg (80-105); ABG TCO2 25
[2021-12-20 07:37] LABS: LYMPHOCYTES % (MANUAL) 3 % (19-48); MONOCYTES % (MANUAL) 3 % (3.4-9.0); NEUTROPHILS % (MANUAL) 94 % (40-74); NUCLEATED RED BLOOD CELLS 1; PLATELET ESTIMATE SLIGHTLY DECREASED; PLATELET MORPHOLOGY COMMENT FEW LARGE; RBC MORPHOLOGY COMMENT NORMAL
[2021-12-20] MEDS ORDERED: SODIUM CHLORIDE 0.9% 250ML 250 ML IV ONE (08:00)
[2021-12-20] MEDS: MIDODRINE HCL 5 MG TABLET PO SCH ×3 (08:17→16:35)
[2021-12-20] MEDS: DOCUSATE SODIUM 100 MG CAP PO SCH ×2 (08:19→17:00)
[2021-12-20] MEDS: METOPROLOL TARTRATE 25 MG TAB PO SCH ×2 (08:20→17:00)
[2021-12-20] MEDS: PROPOFOL IV EMULSION 10MG/ML 100 ML IV PRN (08:24)
[2021-12-20] MEDS: SODIUM BICARBONATE 8.4% 75 ML in SODIUM CHLORIDE 0.45% 1,000 ML IV SCH (09:10)
[2021-12-20] MEDS ORDERED: LEVOFLOXACIN 500MG/D5W 100ML 100 ML IV ONE ×2 (09:15→11:00)
[2021-12-20] MEDS ORDERED: SODIUM CHLORIDE 0.9% 250ML 250 ML ONE ×2 (11:18→17:14)
[2021-12-20] MEDS: FUROSEMIDE INJ 100 MG in SODIUM CHLORIDE 0.9% 90 ML IV SCH ×2 (15:38→23:47)
[2021-12-20] MEDS ORDERED: CENTRAL TPN FORMULA 1 BAG IV SCH (20:00)
[2021-12-20] MEDS: LORAZEPAM INJ 2 MG/ML VIAL IV PRN (20:29)
[2021-12-20] MEDS ORDERED: GENTAMICIN IV STA (22:00)
[2021-12-20] MEDS ORDERED: [UNRECOGNIZED DRUG - OTHER] IV STA (22:00)
[2021-12-20] MEDS ORDERED: GENTAMICIN SULFATE 40 MG/ML 2 ML VIAL ONE (23:00)
[2021-12-21] VITALS (86 sets, daily range): BP systolic 91–154; BP diastolic 42–64
[2021-12-21] MEDS ORDERED: GENTAMICIN 80MG/NS 100 ML 100 ML IV ONE (00:45)
[2021-12-21] MEDS ORDERED: SODIUM CHLORIDE 0.9% 100 ML ONE (00:57)
[2021-12-21] MEDS: ALBUMIN 25% 12.5GM 0.25 GM/ML BTL IV SCH (03:30)
[2021-12-21] MEDS: OCTREOTIDE ACETATE 0.05 MG/ML AMP SQ SCH ×3 (03:30→17:49)
[2021-12-21] MEDS: FENTANYL 2000MCG/NS 250 250 ML IV PRN ×2 (05:17→17:08)
[2021-12-21] MEDS: INSULIN LISPRO 100 UNIT/1 ML 3ML VIAL SQ SCH ×4 (05:19→23:57)
[2021-12-21] MEDS: MEROPENEM 1 GM in SODIUM CHLORIDE 0.9% 100 ML IV SCH ×2 (06:11→17:49)
[2021-12-21 07:02] LABS: ALBUMIN 3.1 g/dL (3.5-5.0); ALBUMIN/GLOBULIN RATIO 1.2 (0.8-2.0); ANION GAP 16.6 mmol/L (8-16); CALCIUM 8.1 mg/dL (8.4-10.2); CREATININE, SERUM 3.24 mg/dL (0.57-1.11); POTASSIUM 3.6 mmol/L (3.5-5.1)
[2021-12-21 07:13] LABS: BASOPHILS # (AUTO) 0.1 (0.0-0.1); BASOPHILS % 0.7 % (0.0-1.0); EOSINOPHILS % 0.1 % (0.0-6.0); HEMATOCRIT 26.2 % (34.2-44.1); HEMOGLOBIN 8.6 g/dL (12.0-16.0); LYMPHOCYTES % 7.5 % (18.0-39.1); MEAN CORPUSCULAR HEMOGLOBIN 27.8 pg (28-32); MEAN CORPUSCULAR HGB CONC 32.8 g/dL (31-35); MEAN CORPUSCULAR VOLUME 84.8 fL (81-99); MONOCYTES % 7.5 % (4.4-11.3); NEUTROPHILS # (AUTO) 10.8 (2.1-6.9); NEUTROPHILS % 82.1 % (38.7-80.0); RED BLOOD COUNT 3.09 x10e6/uL (3.6-5.1); RED CELL DISTRIBUTION WIDTH 16.6 % (11.7-14.4)
[2021-12-21 07:17] LABS: PLATELET COUNT 92 x10e3/uL (140-360)
[2021-12-21 07:28] LABS: MAGNESIUM 2.4 MG/DL (1.3-2.1); PHOSPHORUS 3.5 MG/DL (2.3-4.7)
[2021-12-21 08:23] LABS: ABG HCO3 23 mmol/L (22-26); ABG PCO2 40 mmHg (35-45); ABG PH 7.37 (7.35-7.45); ABG PO2 105 mmHg (80-105); ABG TCO2 25
[2021-12-21] MEDS: DOCUSATE SODIUM 100 MG CAP PO SCH ×2 (08:50→16:59)
[2021-12-21] MEDS ORDERED: MIDODRINE HCL 5 MG TABLET PO ONE (09:30)
[2021-12-21] MEDS: LORAZEPAM INJ 2 MG/ML VIAL IV PRN ×2 (09:38→22:48)
[2021-12-21] MEDS: PROPOFOL IV EMULSION 10MG/ML 100 ML IV PRN (09:39)
[2021-12-21] MEDS: NOREPINEPHRINE 8 MG/D5W 250 ML 250 ML IV SCH (09:52)
[2021-12-21] MEDS ORDERED: VECURONIUM BROMIDE FOR INJ 20 MG VIAL ONE (13:14)
[2021-12-21] MEDS: MIDODRINE HCL 5 MG TABLET PO SCH ×2 (13:41→16:59)
[2021-12-21] MEDS ORDERED: VECURONIUM BROMIDE FOR INJ 20 MG VIAL IV NR (13:45)
[2021-12-21] MEDS ORDERED: LORAZEPAM INJ 2 MG/ML VIAL IV NR (13:45)
[2021-12-21 13:50] LABS: CREATININE,URINE RANDOM 68.6 mg/dL (47-110)
[2021-12-21] MEDS ORDERED: SODIUM CHLORIDE 0.9% 1000ML 1,000 ML ONE (18:16)
[2021-12-21] MEDS ORDERED: MANNITOL 25% 12.5GM/50ML 100 ML ONE (18:34)
[2021-12-21] MEDS ORDERED: HEPARIN SOD (PORCINE) 1000 UNIT/ML SDV ONE (19:47)
[2021-12-21] MEDS ORDERED: CENTRAL TPN FORMULA 1 BAG IV SCH (20:00)
[2021-12-21] MEDS ORDERED: SODIUM CHLORIDE 0.9% IV ONE (20:15)
[2021-12-21] MEDS ORDERED: GENTAMICIN SULFATE IV ONE (20:15)
[2021-12-22] VITALS (75 sets, daily range): BP systolic 90–129; BP diastolic 34–69
[2021-12-22] MEDS ORDERED: LEVOFLOXACIN 500MG/D5W 100ML 100 ML IV ONE
[2021-12-22] MEDS: OCTREOTIDE ACETATE 0.05 MG/ML AMP SQ SCH ×3 (01:32→16:04)
[2021-12-22] MEDS: PROPOFOL IV EMULSION 10MG/ML 100 ML IV PRN ×2 (01:40→15:32)
[2021-12-22] MEDS: LORAZEPAM INJ 2 MG/ML VIAL IV PRN ×4 (02:49→22:21)
[2021-12-22] MEDS: INSULIN LISPRO 100 UNIT/1 ML 3ML VIAL SQ SCH ×4 (05:51→23:23)
[2021-12-22] MEDS: MEROPENEM 1 GM in SODIUM CHLORIDE 0.9% 100 ML IV SCH ×2 (06:15→16:04)
[2021-12-22 06:38] LABS: BASOPHILS # (AUTO) 0.1 (0.0-0.1); BASOPHILS % 0.4 % (0.0-1.0); EOSINOPHILS # (AUTO) 0.1 (0.0-0.4); EOSINOPHILS % 0.4 % (0.0-6.0); HEMATOCRIT 26.9 % (34.2-44.1); HEMOGLOBIN 8.9 g/dL (12.0-16.0); LYMPHOCYTES # (AUTO) 1.1 (1.0-3.2); LYMPHOCYTES % 7.8 % (18.0-39.1); MEAN CORPUSCULAR HEMOGLOBIN 27.7 pg (28-32); MEAN CORPUSCULAR HGB CONC 33.1 g/dL (31-35); MEAN CORPUSCULAR VOLUME 83.8 fL (81-99); MONOCYTES # (AUTO) 1.2 (0.2-0.8); NEUTROPHILS # (AUTO) 10.6 (2.1-6.9); NEUTROPHILS % 77.7 % (38.7-80.0); PLATELET COUNT 93 x10e3/uL (140-360); RED BLOOD COUNT 3.21 x10e6/uL (3.6-5.1); RED CELL DISTRIBUTION WIDTH 16.3 % (11.7-14.4)
[2021-12-22 06:58] LABS: ALBUMIN 2.2 g/dL (3.5-5.0); ALBUMIN/GLOBULIN RATIO 0.8 (0.8-2.0); ANION GAP 13.6 mmol/L (8-16); CREATININE, SERUM 2.86 mg/dL (0.57-1.11); POTASSIUM 3.6 mmol/L (3.5-5.1)
[2021-12-22 07:18] LABS: MAGNESIUM 2.1 MG/DL (1.3-2.1); PHOSPHORUS 3.2 MG/DL (2.3-4.7)
[2021-12-22 08:06] LABS: ABG HCO3 25 mmol/L (22-26); ABG PCO2 37 mmHg (35-45); ABG PH 7.44 (7.35-7.45); ABG PO2 108 mmHg (80-105); ABG TCO2 26
[2021-12-22] MEDS: FENTANYL 2000MCG/NS 250 250 ML IV PRN (08:09)
[2021-12-22] MEDS ORDERED: CENTRAL TPN FORMULA 1 BAG IV SCH ×2 (08:16→20:00)
[2021-12-22] MEDS: DOCUSATE SODIUM 100 MG CAP PO SCH ×2 (08:18→16:04)
[2021-12-22] MEDS: MIDODRINE HCL 5 MG TABLET PO SCH ×3 (08:18→15:29)
[2021-12-22] MEDS ORDERED: ALBUMIN 25% 12.5GM 50ML 100 ML IV ONE (08:51)
[2021-12-22 11:13] LABS: LYMPHOCYTES % (MANUAL) 11 % (19-48); MONOCYTES % (MANUAL) 4 % (3.4-9.0); MYELOCYTES % (MANUAL) 1 % (0-0); NEUTROPHILS % (MANUAL) 84 % (40-74); PLATELET ESTIMATE SLIGHTLY DECREASED; PLATELET MORPHOLOGY COMMENT NORMAL; RBC MORPHOLOGY COMMENT NORMAL
[2021-12-22] MEDS ORDERED: ALBUMIN 25% 12.5GM 0.25 GM/ML BTL IV PRN (11:45)
[2021-12-22] MEDS ORDERED: SODIUM CHLORIDE 0.9% 1000ML 2,000 ML IV PRN (11:45)
[2021-12-22] MEDS ORDERED: MANNITOL 25% 12.5GM/50 ML VIAL IV PRN (11:45)
[2021-12-22] MEDS ORDERED: HEPARIN SOD (PORCINE) 1000 UNIT/ML SDV IV PRN (11:45)
[2021-12-22] MEDS ORDERED: HEPARIN SOD (PORCINE) 1000 UNIT/ML SDV ONE (11:53)
[2021-12-22 13:56] LABS: ABG HCO3 29 mmol/L (22-26); ABG PCO2 39 mmHg (35-45); ABG PH 7.48 (7.35-7.45); ABG PO2 105 mmHg (80-105); ABG TCO2 30
[2021-12-22] MEDS: NOREPINEPHRINE 8 MG/D5W 250 ML 250 ML IV SCH (16:15)
[2021-12-23] VITALS (25 sets, daily range): BP systolic 93–130; BP diastolic 28–90
[2021-12-23] MEDS: OCTREOTIDE ACETATE 0.05 MG/ML AMP SQ SCH ×4 (02:44→18:00)
[2021-12-23] MEDS: LORAZEPAM INJ 2 MG/ML VIAL IV PRN (03:40)
[2021-12-23] MEDS: INSULIN LISPRO 100 UNIT/1 ML 3ML VIAL SQ SCH ×4 (05:23→23:26)
[2021-12-23 05:53] LABS: BASOPHILS # (AUTO) 0.1 (0.0-0.1); BASOPHILS % 0.4 % (0.0-1.0); EOSINOPHILS # (AUTO) 0.1 (0.0-0.4); EOSINOPHILS % 0.4 % (0.0-6.0); HEMATOCRIT 25.6 % (34.2-44.1); HEMOGLOBIN 8.3 g/dL (12.0-16.0); LYMPHOCYTES # (AUTO) 0.8 (1.0-3.2); LYMPHOCYTES % 5.3 % (18.0-39.1); MEAN CORPUSCULAR HEMOGLOBIN 27.9 pg (28-32); MEAN CORPUSCULAR HGB CONC 32.4 g/dL (31-35); MEAN CORPUSCULAR VOLUME 85.9 fL (81-99); MONOCYTES # (AUTO) 1.2 (0.2-0.8); MONOCYTES % 7.7 % (4.4-11.3); NEUTROPHILS # (AUTO) 12.9 (2.1-6.9); NEUTROPHILS % 83.4 % (38.7-80.0); PLATELET COUNT 76 x10e3/uL (140-360); RED BLOOD COUNT 2.98 x10e6/uL (3.6-5.1); RED CELL DISTRIBUTION WIDTH 16.5 % (11.7-14.4)
[2021-12-23] MEDS: PROPOFOL IV EMULSION 10MG/ML 100 ML IV PRN (05:53)
[2021-12-23] MEDS: MEROPENEM 1 GM in SODIUM CHLORIDE 0.9% 100 ML IV SCH ×2 (06:07→18:41)
[2021-12-23 06:35] LABS: ALBUMIN/GLOBULIN RATIO 0.7 (0.8-2.0); ANION GAP 13.7 mmol/L (8-16); CALCIUM 7.6 mg/dL (8.4-10.2); CREATININE, SERUM 2.51 mg/dL (0.57-1.11); MAGNESIUM 2.1 MG/DL (1.3-2.1); PHOSPHORUS 3.3 MG/DL (2.3-4.7); POTASSIUM 3.7 mmol/L (3.5-5.1)
[2021-12-23] MEDS: MIDODRINE HCL 5 MG TABLET PO SCH ×4 (07:42→16:00)
[2021-12-23] MEDS ORDERED: CENTRAL TPN FORMULA 1 BAG IV SCH ×2 (08:28→20:00)
[2021-12-23] MEDS: DOCUSATE SODIUM 100 MG CAP PO SCH ×3 (09:00→17:00)
[2021-12-23 09:09] LABS: ABG HCO3 26 mmol/L (22-26); ABG PCO2 40 mmHg (35-45); ABG PH 7.43 (7.35-7.45); ABG PO2 92 mmHg (80-105); ABG TCO2 27
[2021-12-23 10:08] LABS: ABG HCO3 30 mmol/L (22-26); ABG PCO2 45 mmHg (35-45); ABG PH 7.39 (7.35-7.45); ABG PO2 91 mmHg (80-105); ABG TCO2 28
[2021-12-23 14:35] LABS: ABG PCO2 51 mmHg (35-45); ABG PH 7.35 (7.35-7.45)
[2021-12-23 14:36] LABS: ABG HCO3 28 mmol/L (22-26); ABG PO2 72 mmHg (80-105); ABG TCO2 29
[2021-12-24] VITALS (27 sets, daily range): BP systolic 108–158; BP diastolic 42–110
[2021-12-24] MEDS: OCTREOTIDE ACETATE 0.05 MG/ML AMP SQ SCH ×3 (01:54→18:11)
[2021-12-24] MEDS: INSULIN LISPRO 100 UNIT/1 ML 3ML VIAL SQ SCH ×4 (05:32→23:28)
[2021-12-24] MEDS: MEROPENEM 1 GM in SODIUM CHLORIDE 0.9% 100 ML IV SCH ×2 (05:55→18:22)
[2021-12-24 06:33] LABS: BASOPHILS # (AUTO) 0.1 (0.0-0.1); BASOPHILS % 0.4 % (0.0-1.0); EOSINOPHILS # (AUTO) 0.1 (0.0-0.4); EOSINOPHILS % 0.4 % (0.0-6.0); HEMATOCRIT 29.4 % (34.2-44.1); HEMOGLOBIN 9.2 g/dL (12.0-16.0); LYMPHOCYTES # (AUTO) 0.9 (1.0-3.2); LYMPHOCYTES % 4.4 % (18.0-39.1); MEAN CORPUSCULAR HGB CONC 31.3 g/dL (31-35); MEAN CORPUSCULAR VOLUME 89.6 fL (81-99); MONOCYTES # (AUTO) 1.2 (0.2-0.8); MONOCYTES % 6.2 % (4.4-11.3); NEUTROPHILS # (AUTO) 16.8 (2.1-6.9); NEUTROPHILS % 84.2 % (38.7-80.0); PLATELET COUNT 95 x10e3/uL (140-360); RED BLOOD COUNT 3.28 x10e6/uL (3.6-5.1); RED CELL DISTRIBUTION WIDTH 16.9 % (11.7-14.4)
[2021-12-24 07:36] LABS: ALBUMIN 2.3 g/dL (3.5-5.0); ALBUMIN/GLOBULIN RATIO 0.7 (0.8-2.0); ANION GAP 12.8 mmol/L (8-16); CALCIUM 8.3 mg/dL (8.4-10.2); CREATININE, SERUM 2.59 mg/dL (0.57-1.11); POTASSIUM 3.8 mmol/L (3.5-5.1)
[2021-12-24 07:40] LABS: ABG HCO3 28 mmol/L (22-26); ABG PCO2 54 mmHg (35-45); ABG PH 7.32 (7.35-7.45); ABG PO2 61 mmHg (80-105); ABG TCO2 30
[2021-12-24] MEDS: MIDODRINE HCL 5 MG TABLET PO SCH ×2 (12:00→16:00)
[2021-12-24] MEDS: FUROSEMIDE INJ 10 MG/ML 4 ML VIAL IV SCH ×2 (12:22→20:37)
[2021-12-24 13:46] LABS: BASOPHILS # (AUTO) 0.1 (0.0-0.1); BASOPHILS % 0.6 % (0.0-1.0); EOSINOPHILS # (AUTO) 0.1 (0.0-0.4); EOSINOPHILS % 0.5 % (0.0-6.0); HEMATOCRIT 29.1 % (34.2-44.1); LYMPHOCYTES # (AUTO) 0.8 (1.0-3.2); LYMPHOCYTES % 4.6 % (18.0-39.1); MEAN CORPUSCULAR HEMOGLOBIN 27.9 pg (28-32); MEAN CORPUSCULAR HGB CONC 30.9 g/dL (31-35); MEAN CORPUSCULAR VOLUME 90.1 fL (81-99); MONOCYTES # (AUTO) 0.9 (0.2-0.8); MONOCYTES % 5.5 % (4.4-11.3); NEUTROPHILS # (AUTO) 14.2 (2.1-6.9); PLATELET COUNT 91 x10e3/uL (140-360); RED BLOOD COUNT 3.23 x10e6/uL (3.6-5.1); RED CELL DISTRIBUTION WIDTH 16.8 % (11.7-14.4)
[2021-12-24 13:56] LABS: ABG HCO3 29 mmol/L (22-26); ABG PCO2 51 mmHg (35-45); ABG PH 7.36 (7.35-7.45); ABG PO2 164 mmHg (80-105); ABG TCO2 30
[2021-12-24] MEDS: MICAFUNGIN SODIUM 100 ML IV SCH (14:12)
[2021-12-24] MEDS: DOCUSATE SODIUM 100 MG CAP PO SCH (17:00)
[2021-12-24] MEDS ORDERED: CENTRAL TPN FORMULA 1 BAG IV SCH (21:00)
[2021-12-25] VITALS (25 sets, daily range): BP systolic 106–158; BP diastolic 41–87
[2021-12-25] MEDS: OCTREOTIDE ACETATE 0.05 MG/ML AMP SQ SCH ×3 (02:24→18:39)
[2021-12-25] MEDS: INSULIN LISPRO 100 UNIT/1 ML 3ML VIAL SQ SCH ×3 (05:09→18:39)
[2021-12-25] MEDS: MEROPENEM 1 GM in SODIUM CHLORIDE 0.9% 100 ML IV SCH ×2 (05:57→18:39)
[2021-12-25 06:04] LABS: BASOPHILS # (AUTO) 0.1 (0.0-0.1); BASOPHILS % 0.4 % (0.0-1.0); EOSINOPHILS # (AUTO) 0.1 (0.0-0.4); EOSINOPHILS % 0.8 % (0.0-6.0); HEMATOCRIT 27.2 % (34.2-44.1); HEMOGLOBIN 8.6 g/dL (12.0-16.0); LYMPHOCYTES # (AUTO) 0.7 (1.0-3.2); LYMPHOCYTES % 5.1 % (18.0-39.1); MEAN CORPUSCULAR HEMOGLOBIN 27.9 pg (28-32); MEAN CORPUSCULAR HGB CONC 31.6 g/dL (31-35); MEAN CORPUSCULAR VOLUME 88.3 fL (81-99); MONOCYTES # (AUTO) 0.9 (0.2-0.8); MONOCYTES % 6.3 % (4.4-11.3); NEUTROPHILS # (AUTO) 11.7 (2.1-6.9); NEUTROPHILS % 82.1 % (38.7-80.0); PLATELET COUNT 107 x10e3/uL (140-360); RED BLOOD COUNT 3.08 x10e6/uL (3.6-5.1); RED CELL DISTRIBUTION WIDTH 16.8 % (11.7-14.4)
[2021-12-25 06:32] LABS: ALBUMIN/GLOBULIN RATIO 0.6 (0.8-2.0); ANION GAP 11.9 mmol/L (8-16); CALCIUM 7.7 mg/dL (8.4-10.2); CREATININE, SERUM 1.78 mg/dL (0.57-1.11); MAGNESIUM 1.9 MG/DL (1.3-2.1); PHOSPHORUS 3.1 MG/DL (2.3-4.7); POTASSIUM 3.9 mmol/L (3.5-5.1)
[2021-12-25] MEDS: MIDODRINE HCL 5 MG TABLET PO SCH ×3 (08:00→15:23)
[2021-12-25 08:49] LABS: ABG HCO3 30 mmol/L (22-26); ABG PCO2 45 mmHg (35-45); ABG PH 7.43 (7.35-7.45); ABG PO2 117 mmHg (80-105); ABG TCO2 32
[2021-12-25] MEDS: DOCUSATE SODIUM 100 MG CAP PO SCH ×2 (09:00→17:00)
[2021-12-25] MEDS: FUROSEMIDE INJ 10 MG/ML 4 ML VIAL IV SCH ×2 (09:49→20:29)
[2021-12-25] MEDS: MICAFUNGIN SODIUM 100 ML IV SCH (11:56)
[2021-12-25 16:21] LABS: BASOPHILS # (AUTO) 0.1 (0.0-0.1); BASOPHILS % 0.3 % (0.0-1.0); EOSINOPHILS # (AUTO) 0.2 (0.0-0.4); EOSINOPHILS % 1.2 % (0.0-6.0); HEMATOCRIT 28.8 % (34.2-44.1); HEMOGLOBIN 8.8 g/dL (12.0-16.0); LYMPHOCYTES # (AUTO) 0.8 (1.0-3.2); LYMPHOCYTES % 5.4 % (18.0-39.1); MEAN CORPUSCULAR HEMOGLOBIN 27.7 pg (28-32); MEAN CORPUSCULAR HGB CONC 30.6 g/dL (31-35); MEAN CORPUSCULAR VOLUME 90.6 fL (81-99); MONOCYTES % 7.1 % (4.4-11.3); NEUTROPHILS # (AUTO) 11.7 (2.1-6.9); NEUTROPHILS % 80.2 % (38.7-80.0); PLATELET COUNT 121 x10e3/uL (140-360); RED BLOOD COUNT 3.18 x10e6/uL (3.6-5.1)
[2021-12-25] MEDS ORDERED: CENTRAL TPN FORMULA 1 BAG IV SCH ×2 (20:00)
[2021-12-26] VITALS (56 sets, daily range): BP systolic 120–176; BP diastolic 40–97
[2021-12-26] MEDS: INSULIN LISPRO 100 UNIT/1 ML 3ML VIAL SQ SCH ×5 (00:33→23:44)
[2021-12-26] MEDS: OCTREOTIDE ACETATE 0.05 MG/ML AMP SQ SCH ×3 (02:20→18:16)
[2021-12-26 05:16] LABS: BASOPHILS # (AUTO) 0.1 (0.0-0.1); BASOPHILS % 0.5 % (0.0-1.0); EOSINOPHILS # (AUTO) 0.1 (0.0-0.4); EOSINOPHILS % 1.1 % (0.0-6.0); HEMATOCRIT 27.6 % (34.2-44.1); HEMOGLOBIN 8.5 g/dL (12.0-16.0); LYMPHOCYTES # (AUTO) 0.6 (1.0-3.2); LYMPHOCYTES % 5.3 % (18.0-39.1); MEAN CORPUSCULAR HEMOGLOBIN 28.1 pg (28-32); MEAN CORPUSCULAR HGB CONC 30.8 g/dL (31-35); MEAN CORPUSCULAR VOLUME 91.1 fL (81-99); MONOCYTES # (AUTO) 0.9 (0.2-0.8); MONOCYTES % 7.1 % (4.4-11.3); NEUTROPHILS # (AUTO) 9.9 (2.1-6.9); PLATELET COUNT 124 x10e3/uL (140-360); RED BLOOD COUNT 3.03 x10e6/uL (3.6-5.1); RED CELL DISTRIBUTION WIDTH 16.9 % (11.7-14.4)
[2021-12-26 05:42] LABS: ALBUMIN/GLOBULIN RATIO 0.5 (0.8-2.0); ANION GAP 11.1 mmol/L (8-16); CALCIUM 7.9 mg/dL (8.4-10.2); CREATININE, SERUM 1.72 mg/dL (0.57-1.11); POTASSIUM 4.1 mmol/L (3.5-5.1)
[2021-12-26] MEDS: MEROPENEM 1 GM in SODIUM CHLORIDE 0.9% 100 ML IV SCH ×2 (06:22→18:16)
[2021-12-26] MEDS: DOCUSATE SODIUM 100 MG CAP PO SCH ×2 (09:00→16:44)
[2021-12-26] MEDS ORDERED: MIDODRINE HCL 5 MG TABLET PO SCH (09:00)
[2021-12-26] MEDS: FUROSEMIDE INJ 10 MG/ML 4 ML VIAL IV SCH ×2 (09:29→20:38)
[2021-12-26] MEDS: BALSAM PERU/CASTOR OIL 60 GM OINT...G. TP SCH (09:30)
[2021-12-26 11:39] LABS: ABG HCO3 31 mmol/L (22-26); ABG PCO2 55 mmHg (35-45); ABG PH 7.36 (7.35-7.45); ABG PO2 93 mmHg (80-105); ABG TCO2 32
[2021-12-26] MEDS: MICAFUNGIN SODIUM 100 ML IV SCH (12:52)
[2021-12-26] MEDS: ONDANSETRON HCL INJ 2MG/ML 2ML 2 MG/ML VIAL IV PRN (18:31)
[2021-12-26] MEDS ORDERED: CENTRAL TPN FORMULA 1 BAG IV SCH (20:00)
[2021-12-27] VITALS (57 sets, daily range): BP systolic 112–175; BP diastolic 43–69
[2021-12-27] MEDS: OCTREOTIDE ACETATE 0.05 MG/ML AMP SQ SCH ×3 (02:11→18:34)
[2021-12-27] MEDS: INSULIN LISPRO 100 UNIT/1 ML 3ML VIAL SQ SCH ×4 (05:15→23:27)
[2021-12-27 05:43] LABS: BASOPHILS % 0.3 % (0.0-1.0); EOSINOPHILS # (AUTO) 0.1 (0.0-0.4); EOSINOPHILS % 0.6 % (0.0-6.0); HEMATOCRIT 27.3 % (34.2-44.1); HEMOGLOBIN 8.2 g/dL (12.0-16.0); LYMPHOCYTES # (AUTO) 0.6 (1.0-3.2); LYMPHOCYTES % 4.9 % (18.0-39.1); MEAN CORPUSCULAR HEMOGLOBIN 27.9 pg (28-32); MEAN CORPUSCULAR VOLUME 92.9 fL (81-99); MONOCYTES # (AUTO) 0.8 (0.2-0.8); MONOCYTES % 6.9 % (4.4-11.3); NEUTROPHILS % 84.8 % (38.7-80.0); PLATELET COUNT 140 x10e3/uL (140-360); RED BLOOD COUNT 2.94 x10e6/uL (3.6-5.1); RED CELL DISTRIBUTION WIDTH 17.1 % (11.7-14.4)
[2021-12-27] MEDS: MEROPENEM 1 GM in SODIUM CHLORIDE 0.9% 100 ML IV SCH ×2 (05:48→18:34)
[2021-12-27 05:58] LABS: ALBUMIN/GLOBULIN RATIO 0.5 (0.8-2.0); ANION GAP 13.1 mmol/L (8-16); CALCIUM 8.1 mg/dL (8.4-10.2); CREATININE, SERUM 1.54 mg/dL (0.57-1.11); POTASSIUM 4.1 mmol/L (3.5-5.1)
[2021-12-27] MEDS: FUROSEMIDE INJ 10 MG/ML 4 ML VIAL IV SCH ×2 (08:57→21:20)
[2021-12-27] MEDS: DOCUSATE SODIUM 100 MG CAP PO SCH ×2 (08:58→16:21)
[2021-12-27] MEDS: BALSAM PERU/CASTOR OIL 60 GM OINT...G. TP SCH (08:58)
[2021-12-27 10:10] LABS: ABG PCO2 53 mmHg (35-45); ABG PH 7.38 (7.35-7.45)
[2021-12-27 10:11] LABS: ABG HCO3 31 mmol/L (22-26); ABG PO2 118 mmHg (80-105); ABG TCO2 33
[2021-12-27] MEDS: MICAFUNGIN SODIUM 100 ML IV SCH (12:19)
[2021-12-27] MEDS ORDERED: CENTRAL TPN FORMULA 1 BAG IV SCH (20:00)
[2021-12-28] VITALS (28 sets, daily range): BP systolic 119–161; BP diastolic 40–75
[2021-12-28] MEDS: OCTREOTIDE ACETATE 0.05 MG/ML AMP SQ SCH ×2 (02:58→09:43)
[2021-12-28] MEDS: MEROPENEM 1 GM in SODIUM CHLORIDE 0.9% 100 ML IV SCH ×2 (06:06→17:33)
[2021-12-28] MEDS: INSULIN LISPRO 100 UNIT/1 ML 3ML VIAL SQ SCH ×3 (06:17→18:15)
[2021-12-28 06:22] LABS: BASOPHILS % 0.3 % (0.0-1.0); EOSINOPHILS # (AUTO) 0.1 (0.0-0.4); EOSINOPHILS % 1.2 % (0.0-6.0); HEMATOCRIT 28.6 % (34.2-44.1); HEMOGLOBIN 8.4 g/dL (12.0-16.0); LYMPHOCYTES # (AUTO) 0.6 (1.0-3.2); LYMPHOCYTES % 6.3 % (18.0-39.1); MEAN CORPUSCULAR HEMOGLOBIN 27.9 pg (28-32); MEAN CORPUSCULAR HGB CONC 29.4 g/dL (31-35); MONOCYTES # (AUTO) 0.6 (0.2-0.8); MONOCYTES % 6.4 % (4.4-11.3); NEUTROPHILS # (AUTO) 7.8 (2.1-6.9); NEUTROPHILS % 84.1 % (38.7-80.0); PLATELET COUNT 143 x10e3/uL (140-360); RED BLOOD COUNT 3.01 x10e6/uL (3.6-5.1); RED CELL DISTRIBUTION WIDTH 17.2 % (11.7-14.4)
[2021-12-28 06:52] LABS: ALBUMIN/GLOBULIN RATIO 0.5 (0.8-2.0); ANION GAP 12.3 mmol/L (8-16); CALCIUM 8.2 mg/dL (8.4-10.2); CREATININE, SERUM 1.33 mg/dL (0.57-1.11); MAGNESIUM 1.7 MG/DL (1.3-2.1); POTASSIUM 4.3 mmol/L (3.5-5.1)
[2021-12-28] MEDS: DOCUSATE SODIUM 100 MG CAP PO SCH ×2 (09:43→17:33)
[2021-12-28] MEDS: BALSAM PERU/CASTOR OIL 60 GM OINT...G. TP SCH (09:43)
[2021-12-28] MEDS: FUROSEMIDE INJ 10 MG/ML 4 ML VIAL IV SCH (09:43)
[2021-12-28] MEDS: MICAFUNGIN SODIUM 100 ML IV SCH (12:37)
[2021-12-28] MEDS ORDERED: CENTRAL TPN FORMULA 1 BAG IV SCH (20:00)
[2021-12-28] MEDS: ACETAMINOPHEN 325 MG TAB PO PRN (21:03)
[2021-12-29] VITALS (27 sets, daily range): BP systolic 102–162; BP diastolic 36–90
[2021-12-29] MEDS: INSULIN LISPRO 100 UNIT/1 ML 3ML VIAL SQ SCH ×5 (00:11→23:46)
[2021-12-29 05:48] LABS: BASOPHILS % 0.2 % (0.0-1.0); EOSINOPHILS # (AUTO) 0.1 (0.0-0.4); EOSINOPHILS % 1.2 % (0.0-6.0); HEMATOCRIT 28.7 % (34.2-44.1); HEMOGLOBIN 8.6 g/dL (12.0-16.0); LYMPHOCYTES # (AUTO) 0.5 (1.0-3.2); LYMPHOCYTES % 5.3 % (18.0-39.1); MEAN CORPUSCULAR HEMOGLOBIN 28.5 pg (28-32); MONOCYTES # (AUTO) 0.7 (0.2-0.8); NEUTROPHILS # (AUTO) 8.2 (2.1-6.9); NEUTROPHILS % 84.5 % (38.7-80.0); PLATELET COUNT 167 x10e3/uL (140-360); RED BLOOD COUNT 3.02 x10e6/uL (3.6-5.1); RED CELL DISTRIBUTION WIDTH 17.1 % (11.7-14.4)
[2021-12-29 06:17] LABS: ALBUMIN 2.1 g/dL (3.5-5.0); ALBUMIN/GLOBULIN RATIO 0.5 (0.8-2.0); ANION GAP 13.3 mmol/L (8-16); CALCIUM 8.3 mg/dL (8.4-10.2); CREATININE, SERUM 1.21 mg/dL (0.57-1.11); MAGNESIUM 1.7 MG/DL (1.3-2.1); PHOSPHORUS 3.7 MG/DL (2.3-4.7); POTASSIUM 4.3 mmol/L (3.5-5.1)
[2021-12-29] MEDS: MEROPENEM 1 GM in SODIUM CHLORIDE 0.9% 100 ML IV SCH ×2 (06:25→18:06)
[2021-12-29] MEDS: BALSAM PERU/CASTOR OIL 60 GM OINT...G. TP SCH (08:57)
[2021-12-29] MEDS: DOCUSATE SODIUM 100 MG CAP PO SCH ×2 (08:57→18:05)
[2021-12-29] MEDS ORDERED: CENTRAL TPN FORMULA 1 BAG IV SCH ×2 (12:15→20:00)
[2021-12-29] MEDS: MICAFUNGIN SODIUM 100 ML IV SCH (12:52)
[2021-12-30] VITALS (24 sets, daily range): BP systolic 110–169; BP diastolic 35–83
[2021-12-30] MEDS: INSULIN LISPRO 100 UNIT/1 ML 3ML VIAL SQ SCH ×3 (05:30→18:10)
[2021-12-30 06:08] LABS: BASOPHILS % 0.4 % (0.0-1.0); EOSINOPHILS # (AUTO) 0.1 (0.0-0.4); EOSINOPHILS % 1.3 % (0.0-6.0); HEMATOCRIT 28.4 % (34.2-44.1); HEMOGLOBIN 8.3 g/dL (12.0-16.0); LYMPHOCYTES # (AUTO) 0.6 (1.0-3.2); LYMPHOCYTES % 6.7 % (18.0-39.1); MEAN CORPUSCULAR HEMOGLOBIN 28.1 pg (28-32); MEAN CORPUSCULAR HGB CONC 29.2 g/dL (31-35); MEAN CORPUSCULAR VOLUME 96.3 fL (81-99); MONOCYTES # (AUTO) 0.5 (0.2-0.8); MONOCYTES % 5.6 % (4.4-11.3); NEUTROPHILS # (AUTO) 7.1 (2.1-6.9); NEUTROPHILS % 84.5 % (38.7-80.0); PLATELET COUNT 170 x10e3/uL (140-360); RED BLOOD COUNT 2.95 x10e6/uL (3.6-5.1); RED CELL DISTRIBUTION WIDTH 17.2 % (11.7-14.4)
[2021-12-30 06:47] LABS: ALBUMIN 2.1 g/dL (3.5-5.0); ALBUMIN/GLOBULIN RATIO 0.5 (0.8-2.0); ANION GAP 13.2 mmol/L (8-16); CALCIUM 8.1 mg/dL (8.4-10.2); CREATININE, SERUM 1.09 mg/dL (0.57-1.11); POTASSIUM 4.2 mmol/L (3.5-5.1)
[2021-12-30] MEDS: MEROPENEM 1 GM in SODIUM CHLORIDE 0.9% 100 ML IV SCH ×2 (06:48→18:10)
[2021-12-30] MEDS: DOCUSATE SODIUM 100 MG CAP PO SCH ×2 (07:51→18:10)
[2021-12-30] MEDS: BALSAM PERU/CASTOR OIL 60 GM OINT...G. TP SCH (07:51)
[2021-12-30] MEDS: GUAIFENESIN 200 MG/10 ML UDC PO PRN ×2 (08:55→18:13)
[2021-12-30] MEDS: DEXTROSE 5% 1,000 ML IV SCH (10:23)
[2021-12-30] MEDS: ACETAMINOPHEN 325 MG TAB PO PRN (10:50)
[2021-12-30] MEDS: AMLODIPINE BESYLATE 5 MG TAB PO SCH (12:03)
[2021-12-30] MEDS: MICAFUNGIN SODIUM 100 ML IV SCH (12:03)
[2021-12-30] MEDS: ALBUTEROL SULF 0.083% NEB SOLN 3 ML NEB NEB PRN (19:12)
[2021-12-31] VITALS (23 sets, daily range): BP systolic 122–159; BP diastolic 50–128
[2021-12-31 05:09] LABS: BASOPHILS % 0.4 % (0.0-1.0); EOSINOPHILS # (AUTO) 0.1 (0.0-0.4); EOSINOPHILS % 1.3 % (0.0-6.0); HEMATOCRIT 27.8 % (34.2-44.1); HEMOGLOBIN 8.2 g/dL (12.0-16.0); LYMPHOCYTES # (AUTO) 0.6 (1.0-3.2); LYMPHOCYTES % 7.1 % (18.0-39.1); MEAN CORPUSCULAR HEMOGLOBIN 28.3 pg (28-32); MEAN CORPUSCULAR HGB CONC 29.5 g/dL (31-35); MEAN CORPUSCULAR VOLUME 95.9 fL (81-99); MONOCYTES # (AUTO) 0.4 (0.2-0.8); MONOCYTES % 4.9 % (4.4-11.3); NEUTROPHILS # (AUTO) 6.6 (2.1-6.9); NEUTROPHILS % 84.9 % (38.7-80.0); PLATELET COUNT 168 x10e3/uL (140-360); RED CELL DISTRIBUTION WIDTH 16.9 % (11.7-14.4)
[2021-12-31 05:33] LABS: ALBUMIN 2.1 g/dL (3.5-5.0); ALBUMIN/GLOBULIN RATIO 0.5 (0.8-2.0); ANION GAP 12.2 mmol/L (8-16); CALCIUM 8.3 mg/dL (8.4-10.2); CREATININE, SERUM 0.94 mg/dL (0.57-1.11); POTASSIUM 4.2 mmol/L (3.5-5.1)
[2021-12-31] MEDS: DEXTROSE 5% 1,000 ML IV SCH (05:34)
[2021-12-31] MEDS: INSULIN LISPRO 100 UNIT/1 ML 3ML VIAL SQ SCH ×5 (05:35→21:15)
[2021-12-31] MEDS: MEROPENEM 1 GM in SODIUM CHLORIDE 0.9% 100 ML IV SCH (06:36)
[2021-12-31] MEDS: AMLODIPINE BESYLATE 5 MG TAB PO SCH (08:10)
[2021-12-31] MEDS: DOCUSATE SODIUM 100 MG CAP PO SCH ×2 (08:10→17:00)
[2021-12-31] MEDS: BALSAM PERU/CASTOR OIL 60 GM OINT...G. TP SCH (08:10)
[2022-01-01] VITALS (26 sets, daily range): BP systolic 128–159; BP diastolic 54–83
[2022-01-01 05:01] LABS: BASOPHILS % 0.4 % (0.0-1.0); EOSINOPHILS # (AUTO) 0.1 (0.0-0.4); EOSINOPHILS % 1.2 % (0.0-6.0); HEMATOCRIT 28.2 % (34.2-44.1); HEMOGLOBIN 8.3 g/dL (12.0-16.0); LYMPHOCYTES # (AUTO) 0.7 (1.0-3.2); LYMPHOCYTES % 6.6 % (18.0-39.1); MEAN CORPUSCULAR HEMOGLOBIN 28.3 pg (28-32); MEAN CORPUSCULAR HGB CONC 29.4 g/dL (31-35); MEAN CORPUSCULAR VOLUME 96.2 fL (81-99); MONOCYTES # (AUTO) 0.7 (0.2-0.8); MONOCYTES % 6.8 % (4.4-11.3); NEUTROPHILS # (AUTO) 8.5 (2.1-6.9); PLATELET COUNT 187 x10e3/uL (140-360); RED BLOOD COUNT 2.93 x10e6/uL (3.6-5.1); RED CELL DISTRIBUTION WIDTH 17.4 % (11.7-14.4)
[2022-01-01 05:21] LABS: ALBUMIN 2.2 g/dL (3.5-5.0); ALBUMIN/GLOBULIN RATIO 0.5 (0.8-2.0); CALCIUM 8.5 mg/dL (8.4-10.2); CREATININE, SERUM 0.89 mg/dL (0.57-1.11)
[2022-01-01] MEDS: INSULIN LISPRO 100 UNIT/1 ML 3ML VIAL SQ SCH ×4 (06:00→21:00)
[2022-01-01 06:02] LABS: MAGNESIUM 1.6 MG/DL (1.3-2.1); PHOSPHORUS 2.2 MG/DL (2.3-4.7)
[2022-01-01] MEDS: BALSAM PERU/CASTOR OIL 60 GM OINT...G. TP SCH (08:11)
[2022-01-01] MEDS: AMLODIPINE BESYLATE 5 MG TAB PO SCH (08:11)
[2022-01-01] MEDS: DOCUSATE SODIUM 100 MG CAP PO SCH ×2 (08:12→16:03)
[2022-01-01] MEDS ORDERED: POTASSIUM PHOSPHATE 15 MM in DEXTROSE 5% 250ML 250 ML IV ONE (09:00)
[2022-01-01] MEDS ORDERED: DEXTROSE 5% 1,000 ML IV ONE (09:00)
[2022-01-02] VITALS (23 sets, daily range): BP systolic 121–157; BP diastolic 49–97
[2022-01-02 02:04] LABS: % IRON SATURATION 18 % (15-50); IRON 35 ug/dL (50-170); TOTAL IRON BINDING CAPACITY 195 ug/dL (261-478); TRANSFERRIN 139 mg/dL (180-382)
[2022-01-02 05:18] LABS: ALBUMIN 2.1 g/dL (3.5-5.0); ALBUMIN/GLOBULIN RATIO 0.5 (0.8-2.0); ANION GAP 12.2 mmol/L (8-16); CALCIUM 8.4 mg/dL (8.4-10.2); CREATININE, SERUM 0.83 mg/dL (0.57-1.11); MAGNESIUM 1.7 MG/DL (1.3-2.1); PHOSPHORUS 2.2 MG/DL (2.3-4.7); POTASSIUM 4.2 mmol/L (3.5-5.1)
[2022-01-02] MEDS: INSULIN LISPRO 100 UNIT/1 ML 3ML VIAL SQ SCH ×4 (08:04→21:00)
[2022-01-02] MEDS: DOCUSATE SODIUM 100 MG CAP PO SCH ×2 (09:00→16:39)
[2022-01-02] MEDS: AMLODIPINE BESYLATE 5 MG TAB PO SCH (09:20)
[2022-01-02] MEDS: BALSAM PERU/CASTOR OIL 60 GM OINT...G. TP SCH (09:45)
[2022-01-02] MEDS ORDERED: DEXTROSE 5% 1,000 ML IV SCH (16:45)
[2022-01-02] MEDS: ENOXAPARIN SOD INJ 40 MG/0.4 ML SYR SC SCH (19:29)
[2022-01-03] VITALS (7 sets, daily range): BP systolic 130–148; BP diastolic 49–61
[2022-01-03] MEDS: INSULIN LISPRO 100 UNIT/1 ML 3ML VIAL SQ SCH ×4 (07:30→20:56)
[2022-01-03] MEDS: DOCUSATE SODIUM 100 MG CAP PO SCH ×2 (09:00→16:14)
[2022-01-03] MEDS: AMLODIPINE BESYLATE 5 MG TAB PO SCH (09:00)
[2022-01-03] MEDS: IRON SUCROSE 100 MG in SODIUM CHLORIDE 0.9% 100 ML 100 ML IV SCH (09:25)
[2022-01-03] MEDS ORDERED: FUROSEMIDE INJ 10 MG/ML 4 ML VIAL IV ONE (09:30)
[2022-01-03 09:35] LABS: BASOPHILS % 0.4 % (0.0-1.0); EOSINOPHILS # (AUTO) 0.2 (0.0-0.4); EOSINOPHILS % 2.4 % (0.0-6.0); HEMATOCRIT 25.3 % (34.2-44.1); HEMOGLOBIN 7.5 g/dL (12.0-16.0); LYMPHOCYTES # (AUTO) 0.7 (1.0-3.2); MEAN CORPUSCULAR HGB CONC 29.6 g/dL (31-35); MEAN CORPUSCULAR VOLUME 97.7 fL (81-99); MONOCYTES # (AUTO) 0.4 (0.2-0.8); NEUTROPHILS # (AUTO) 5.4 (2.1-6.9); NEUTROPHILS % 79.7 % (38.7-80.0); PLATELET COUNT 166 x10e3/uL (140-360); RED BLOOD COUNT 2.59 x10e6/uL (3.6-5.1); RED CELL DISTRIBUTION WIDTH 17.8 % (11.7-14.4)
[2022-01-03] MEDS ORDERED: POTASSIUM PHOSPHATE 15 MM in DEXTROSE 5% 250ML 250 ML IV ONE (12:00)
[2022-01-03] MEDS: BALSAM PERU/CASTOR OIL 60 GM OINT...G. TP SCH (12:00)
[2022-01-03] MEDS: DEXTROSE 5% 1,000 ML IV SCH (15:15)
[2022-01-03] MEDS: ENOXAPARIN SOD INJ 40 MG/0.4 ML SYR SC SCH (17:00)
[2022-01-04] VITALS (7 sets, daily range): BP systolic 103–152; BP diastolic 52–85
[2022-01-04] MEDS: ALBUTEROL SULF 0.083% NEB SOLN 3 ML NEB NEB PRN (00:18)
[2022-01-04] MEDS ORDERED: PHYTONADIONE 10 MG/ML AMP IV ONE (00:30)
[2022-01-04] MEDS ORDERED: PHYTONADIONE 10MG/ML 20 MG in SODIUM CHLORIDE 0.9% 100 ML IV ONE (00:30)
[2022-01-04 06:22] LABS: ALBUMIN 2.1 g/dL (3.5-5.0); ALBUMIN/GLOBULIN RATIO 0.5 (0.8-2.0); ANION GAP 13.4 mmol/L (8-16); CALCIUM 8.7 mg/dL (8.4-10.2); CREATININE, SERUM 0.88 mg/dL (0.57-1.11); MAGNESIUM 1.5 MG/DL (1.3-2.1); PHOSPHORUS 2.7 MG/DL (2.3-4.7); POTASSIUM 4.4 mmol/L (3.5-5.1)
[2022-01-04] MEDS: INSULIN LISPRO 100 UNIT/1 ML 3ML VIAL SQ SCH ×4 (07:30→20:06)
[2022-01-04] MEDS: DOCUSATE SODIUM 100 MG CAP PO SCH ×2 (08:55→17:00)
[2022-01-04] MEDS: AMLODIPINE BESYLATE 5 MG TAB PO SCH (08:56)
[2022-01-04] MEDS: FUROSEMIDE 40 MG TAB PO SCH (08:56)
[2022-01-04] MEDS: IRON SUCROSE 100 MG in SODIUM CHLORIDE 0.9% 100 ML 100 ML IV SCH (09:22)
[2022-01-04] MEDS: DEXTROSE 5% 1,000 ML IV SCH (14:58)
[2022-01-04] MEDS: BALSAM PERU/CASTOR OIL 60 GM OINT...G. TP SCH (16:02)
[2022-01-04] MEDS: ENOXAPARIN SOD INJ 40 MG/0.4 ML SYR SC SCH (17:05)
[2022-01-05] VITALS (9 sets, daily range): BP systolic 97–154; BP diastolic 58–83
[2022-01-05 06:35] LABS: BASOPHILS # (AUTO) 0.1 (0.0-0.1); BASOPHILS % 0.9 % (0.0-1.0); EOSINOPHILS # (AUTO) 0.4 (0.0-0.4); EOSINOPHILS % 6.7 % (0.0-6.0); HEMATOCRIT 25.8 % (34.2-44.1); HEMOGLOBIN 7.6 g/dL (12.0-16.0); LYMPHOCYTES # (AUTO) 0.6 (1.0-3.2); LYMPHOCYTES % 10.2 % (18.0-39.1); MEAN CORPUSCULAR HEMOGLOBIN 28.4 pg (28-32); MEAN CORPUSCULAR HGB CONC 29.5 g/dL (31-35); MEAN CORPUSCULAR VOLUME 96.3 fL (81-99); MONOCYTES # (AUTO) 0.4 (0.2-0.8); MONOCYTES % 7.1 % (4.4-11.3); NEUTROPHILS # (AUTO) 4.1 (2.1-6.9); PLATELET COUNT 161 x10e3/uL (140-360); RED BLOOD COUNT 2.68 x10e6/uL (3.6-5.1); RED CELL DISTRIBUTION WIDTH 18.4 % (11.7-14.4)
[2022-01-05 06:58] LABS: ALBUMIN 2.3 g/dL (3.5-5.0); ALBUMIN/GLOBULIN RATIO 0.6 (0.8-2.0); ANION GAP 12.3 mmol/L (8-16); CALCIUM 8.8 mg/dL (8.4-10.2); CREATININE, SERUM 0.84 mg/dL (0.57-1.11); POTASSIUM 4.3 mmol/L (3.5-5.1)
[2022-01-05] MEDS: INSULIN LISPRO 100 UNIT/1 ML 3ML VIAL SQ SCH ×3 (07:30→15:51)
[2022-01-05] MEDS: FUROSEMIDE 40 MG TAB PO SCH (08:24)
[2022-01-05] MEDS: AMLODIPINE BESYLATE 5 MG TAB PO SCH (08:24)
[2022-01-05] MEDS: IRON SUCROSE 100 MG in SODIUM CHLORIDE 0.9% 100 ML 100 ML IV SCH (08:24)
[2022-01-05] MEDS: DEXTROSE 5% 1,000 ML IV SCH (08:24)
[2022-01-05] MEDS: DOCUSATE SODIUM 100 MG CAP PO SCH ×2 (08:24→16:54)
[2022-01-05] MEDS: BALSAM PERU/CASTOR OIL 60 GM OINT...G. TP SCH (16:54)
[2022-01-05] MEDS: ENOXAPARIN SOD INJ 40 MG/0.4 ML SYR SC SCH (16:54)
[2022-01-06] VITALS (8 sets, daily range): BP systolic 105–155; BP diastolic 52–70
[2022-01-06] MEDS: DEXTROSE 5% 1,000 ML IV SCH ×2 (04:05→23:08)
[2022-01-06] MEDS: AMLODIPINE BESYLATE 5 MG TAB PO SCH (09:00)
[2022-01-06] MEDS: DOCUSATE SODIUM 100 MG CAP PO SCH ×2 (09:00→17:00)
[2022-01-06] MEDS: BALSAM PERU/CASTOR OIL 60 GM OINT...G. TP SCH (09:00)
[2022-01-06] MEDS: FUROSEMIDE 40 MG TAB PO SCH (09:00)
[2022-01-06] MEDS: IRON SUCROSE 100 MG in SODIUM CHLORIDE 0.9% 100 ML 100 ML IV SCH (11:46)
[2022-01-06] MEDS: ENOXAPARIN SOD INJ 40 MG/0.4 ML SYR SC SCH (17:00)
[2022-01-07] VITALS (8 sets, daily range): BP systolic 110–151; BP diastolic 45–63
[2022-01-07 05:32] LABS: BASOPHILS % 0.5 % (0.0-1.0); EOSINOPHILS # (AUTO) 0.5 (0.0-0.4); EOSINOPHILS % 8.3 % (0.0-6.0); HEMATOCRIT 26.3 % (34.2-44.1); HEMOGLOBIN 7.7 g/dL (12.0-16.0); LYMPHOCYTES # (AUTO) 0.6 (1.0-3.2); LYMPHOCYTES % 10.1 % (18.0-39.1); MEAN CORPUSCULAR HEMOGLOBIN 28.8 pg (28-32); MEAN CORPUSCULAR HGB CONC 29.3 g/dL (31-35); MEAN CORPUSCULAR VOLUME 98.5 fL (81-99); MONOCYTES # (AUTO) 0.5 (0.2-0.8); MONOCYTES % 7.6 % (4.4-11.3); NEUTROPHILS # (AUTO) 4.4 (2.1-6.9); NEUTROPHILS % 72.7 % (38.7-80.0); PLATELET COUNT 146 x10e3/uL (140-360); RED BLOOD COUNT 2.67 x10e6/uL (3.6-5.1); RED CELL DISTRIBUTION WIDTH 18.9 % (11.7-14.4)
[2022-01-07 06:07] LABS: ALBUMIN 2.2 g/dL (3.5-5.0); ALBUMIN/GLOBULIN RATIO 0.5 (0.8-2.0); ANION GAP 15.2 mmol/L (8-16); CALCIUM 8.8 mg/dL (8.4-10.2); CREATININE, SERUM 0.88 mg/dL (0.57-1.11); MAGNESIUM 1.6 MG/DL (1.3-2.1); PHOSPHORUS 2.5 MG/DL (2.3-4.7); POTASSIUM 4.2 mmol/L (3.5-5.1)
[2022-01-07] MEDS: BALSAM PERU/CASTOR OIL 60 GM OINT...G. TP SCH (09:00)
[2022-01-07] MEDS: DOCUSATE SODIUM 100 MG CAP PO SCH ×2 (09:00→17:00)
[2022-01-07] MEDS: IRON SUCROSE 100 MG in SODIUM CHLORIDE 0.9% 100 ML 100 ML IV SCH (10:36)
[2022-01-07] MEDS: AMLODIPINE BESYLATE 5 MG TAB PO SCH (10:55)
[2022-01-07] MEDS: FUROSEMIDE 40 MG TAB PO SCH (10:55)
[2022-01-07] MEDS: ENOXAPARIN SOD INJ 40 MG/0.4 ML SYR SC SCH (17:20)
[2022-01-07] MEDS: DEXTROSE 5% 1,000 ML IV SCH ×2 (17:44→23:19)
[2022-01-08] VITALS (9 sets, daily range): BP systolic 121–158; BP diastolic 45–90
[2022-01-08 07:56] LABS: ALBUMIN 2.3 g/dL (3.5-5.0); ALBUMIN/GLOBULIN RATIO 0.5 (0.8-2.0); ANION GAP 12.9 mmol/L (8-16); CALCIUM 11.5 mg/dL (8.4-10.2); CREATININE, SERUM 0.97 mg/dL (0.57-1.11); POTASSIUM 3.9 mmol/L (3.5-5.1)
[2022-01-08] MEDS: DOCUSATE SODIUM 100 MG CAP PO SCH ×2 (09:00→17:00)
[2022-01-08] MEDS: BALSAM PERU/CASTOR OIL 60 GM OINT...G. TP SCH (09:00)
[2022-01-08] MEDS: IRON SUCROSE 100 MG in SODIUM CHLORIDE 0.9% 100 ML 100 ML IV SCH (13:10)
[2022-01-08] MEDS: FUROSEMIDE 40 MG TAB PO SCH (13:10)
[2022-01-08] MEDS: AMLODIPINE BESYLATE 5 MG TAB PO SCH (13:10)
[2022-01-08] MEDS ORDERED: ONDANSETRON HCL 4 MG ORAL DISINTEGRATING TAB PO PRN (14:30)
[2022-01-08] MEDS ORDERED: KETOROLAC TROMETHAMINE 30 MG/ML VIAL IV PRN (15:30)
[2022-01-08] MEDS: ENOXAPARIN SOD INJ 40 MG/0.4 ML SYR SC SCH (17:37)
[2022-01-09] VITALS (8 sets, daily range): BP systolic 113–143; BP diastolic 46–69
[2022-01-09] MEDS: DEXTROSE 5% 1,000 ML IV SCH (02:00)
[2022-01-09 06:14] LABS: HEMATOCRIT 25.1 % (34.2-44.1); HEMOGLOBIN 7.5 g/dL (12.0-16.0)
[2022-01-09 06:30] LABS: ALBUMIN 2.2 g/dL (3.5-5.0); ALBUMIN/GLOBULIN RATIO 0.5 (0.8-2.0); ANION GAP 9.5 mmol/L (8-16); CALCIUM 8.8 mg/dL (8.4-10.2); MAGNESIUM 1.4 MG/DL (1.3-2.1); PHOSPHORUS 2.2 MG/DL (2.3-4.7); POTASSIUM 3.5 mmol/L (3.5-5.1)
[2022-01-09] MEDS: BALSAM PERU/CASTOR OIL 60 GM OINT...G. TP SCH (09:00)
[2022-01-09] MEDS: DOCUSATE SODIUM 100 MG CAP PO SCH ×2 (11:21→17:11)
[2022-01-09] MEDS: AMLODIPINE BESYLATE 5 MG TAB PO SCH (11:21)
[2022-01-09] MEDS: FUROSEMIDE 40 MG TAB PO SCH (11:21)
[2022-01-09] MEDS: IRON SUCROSE 100 MG in SODIUM CHLORIDE 0.9% 100 ML 100 ML IV SCH (11:30)
[2022-01-09] MEDS ORDERED: POTASSIUM PHOSPHATE 15 MM in SODIUM CHLORIDE 0.9% 250ML 250 ML IV ONE (12:00)
[2022-01-09] MEDS ORDERED: SODIUM CHLORIDE 0.9% 500ML 500 ML ONE (12:09)
[2022-01-10] VITALS: BP 126/50
== END 2022-01-10 02:29 | DRG 870 ==
LOC: ER 13:22 → ERHOLD 14:51 → MED/SURG3 15:40 → ICU 12-18 17:55 → MED/SURG2 01-02 21:59
PROVIDERS: ADMIT Family Medicine; ATTEND Family Medicine
PROC: 30233N1 Transfusion of Nonautologous Red Blood Cells into Peripheral Vein, Percutaneous Approach (ICD-10-PCS; 2021-12-04)
PROC: 0DB68ZZ Excision of Stomach, Via Natural or Artificial Opening Endoscopic (ICD-10-PCS; 2021-12-06)
PROC: 0DB78ZX Excision of Stomach, Pylorus, Via Natural or Artificial Opening Endoscopic, Diagnostic (ICD-10-PCS; 2021-12-06)
PROC: 0DB48ZX Excision of Esophagogastric Junction, Via Natural or Artificial Opening Endoscopic, Diagnostic (ICD-10-PCS; 2021-12-06)
PROC: 05HY33Z Insertion of Infusion Device into Upper Vein, Percutaneous Approach (ICD-10-PCS; 2021-12-08)
PROC: 30243N1 Transfusion of Nonautologous Red Blood Cells into Central Vein, Percutaneous Approach (ICD-10-PCS; 2021-12-08)
PROC: 5A1955Z Respiratory Ventilation, Greater than 96 Consecutive Hours (ICD-10-PCS; 2021-12-18)
PROC: 02HV33Z Insertion of Infusion Device into Superior Vena Cava, Percutaneous Approach (ICD-10-PCS; 2021-12-18)
PROC: 0FC98ZZ Extirpation of Matter from Common Bile Duct, Via Natural or Artificial Opening Endoscopic (ICD-10-PCS; 2021-12-18)
PROC: 0F7C8ZZ Dilation of Ampulla of Vater, Via Natural or Artificial Opening Endoscopic (ICD-10-PCS; 2021-12-18)
PROC: 0F798DZ Dilation of Common Bile Duct with Intraluminal Device, Via Natural or Artificial Opening Endoscopic (ICD-10-PCS; 2021-12-18)
PROC: BF131ZZ Fluoroscopy of Gallbladder and Bile Ducts using Low Osmolar Contrast (ICD-10-PCS; 2021-12-18)
PROC: 0BH18EZ Insertion of Endotracheal Airway into Trachea, Via Natural or Artificial Opening Endoscopic (ICD-10-PCS; 2021-12-18)
PROC: 3E043XZ Introduction of Vasopressor into Central Vein, Percutaneous Approach (ICD-10-PCS; 2021-12-18)
PROC: 0F9980Z Drainage of Common Bile Duct with Drainage Device, Via Natural or Artificial Opening Endoscopic (ICD-10-PCS; 2021-12-19)
PROC: 02HV33Z Insertion of Infusion Device into Superior Vena Cava, Percutaneous Approach (ICD-10-PCS; principal; 2021-12-21)
PROC: 5A1D70Z Performance of Urinary Filtration, Intermittent, Less than 6 Hours Per Day (ICD-10-PCS; 2021-12-21)
PROC: 3E0436Z Introduction of Nutritional Substance into Central Vein, Percutaneous Approach (ICD-10-PCS; 2021-12-22)
PROC: 5A09457 Assistance with Respiratory Ventilation, 24-96 Consecutive Hours, Continuous Positive Airway Pressure (ICD-10-PCS; 2021-12-24)
PROC: 0DBK8ZZ Excision of Ascending Colon, Via Natural or Artificial Opening Endoscopic (ICD-10-PCS; 2022-01-10)
PROC: 0DBL8ZZ Excision of Transverse Colon, Via Natural or Artificial Opening Endoscopic (ICD-10-PCS; 2022-01-10)
PROC: 0DBM8ZZ Excision of Descending Colon, Via Natural or Artificial Opening Endoscopic (ICD-10-PCS; 2022-01-10)
PROC: 0DBH8ZZ Excision of Cecum, Via Natural or Artificial Opening Endoscopic (ICD-10-PCS; 2022-01-10)
DX: A41.89 Other specified sepsis (principal); R65.21 Severe sepsis with septic shock; K29.81 Duodenitis with bleeding; K29.01 Acute gastritis with bleeding; J96.01 Acute respiratory failure with hypoxia; G93.41 Metabolic encephalopathy; N17.0 Acute kidney failure with tubular necrosis; K85.12 Biliary acute pancreatitis with infected necrosis; K76.7 Hepatorenal syndrome; K20.91 Esophagitis, unspecified with bleeding; L97.429 Non-pressure chronic ulcer of left heel and midfoot with unspecified severity; Z68.41 Body mass index [BMI] 40.0-44.9, adult; N17.9 Acute kidney failure, unspecified; L02.619 Cutaneous abscess of unspecified foot; K81.0 Acute cholecystitis; E87.0 Hyperosmolality and hypernatremia; Z16.12 Extended spectrum beta lactamase (ESBL) resistance; B49 Unspecified mycosis; D62 Acute posthemorrhagic anemia; K56.7 Ileus, unspecified; I13.0 Hypertensive heart and chronic kidney disease with heart failure and stage 1 through stage 4 chronic kidney disease, or unspecified chronic kidney disease; A41.51 Sepsis due to Escherichia coli [E. coli]; Z20.822 Contact with and (suspected) exposure to COVID-19; Z79.01 Long term (current) use of anticoagulants; Z95.2 Presence of prosthetic heart valve; E11.621 Type 2 diabetes mellitus with foot ulcer; Z79.899 Other long term (current) drug therapy; Z88.0 Allergy status to penicillin; E78.5 Hyperlipidemia, unspecified; E11.22 Type 2 diabetes mellitus with diabetic chronic kidney disease; N18.30 Chronic kidney disease, stage 3 unspecified; I87.2 Venous insufficiency (chronic) (peripheral); E66.9 Obesity, unspecified; Z85.42 Personal history of malignant neoplasm of other parts of uterus; E11.51 Type 2 diabetes mellitus with diabetic peripheral angiopathy without gangrene; K72.90 Hepatic failure, unspecified without coma; K63.5 Polyp of colon; M19.90 Unspecified osteoarthritis, unspecified site; Z89.421 Acquired absence of other right toe(s); G47.33 Obstructive sleep apnea (adult) (pediatric); E83.42 Hypomagnesemia; R13.10 Dysphagia, unspecified; E83.39 Other disorders of phosphorus metabolism; R62.7 Adult failure to thrive; E83.52 Hypercalcemia; T17.990A Other foreign object in respiratory tract, part unspecified in causing asphyxiation, initial encounter; E66.01 Morbid (severe) obesity due to excess calories; J02.9 Acute pharyngitis, unspecified; D69.59 Other secondary thrombocytopenia; K59.00 Constipation, unspecified; D50.9 Iron deficiency anemia, unspecified; R13.12 Dysphagia, oropharyngeal phase; D63.8 Anemia in other chronic diseases classified elsewhere; I25.10 Atherosclerotic heart disease of native coronary artery without angina pectoris; I50.9 Heart failure, unspecified
CPT/HCPCS: 36415; 36600; 43239; 43260; 45378; 47490; 71045; 74018; 74177; 74181; 74230; 74250; 74328; 74470; 76700; 76705; 76942; 78278; 80048; 80053; 80076; 81001; 82140; 82150; 82270; 82550; 82553; 82570; 82607; 82728; 82746; 82805; 82948; 83540; 83605; 83690; 83735; 83880; 84100; 84300; 84466; 84484; 85014; 85018; 85025; 85045; 85610; 85730; 86850; 86900; 86920; 87040; 87071; 87086; 87186; 87205; 88305; 88312; 90962; 92950; 93005; 94003; 94660; 94799; 96361; 96365; 96366; 96372; 97139; 99251; 99284; A9512; C1729; J0330; J1580; J1610; J1644; J1650; J1756; J1940; J1956; J1980; J2001; J2060; J2150; J2185; J2248; J2250; J2270; J2354; J2370; J2405; J2765; J3010; J3430; J7030; J7040; J7042; J7050; J7070; J7121; J7799; P9016; Q0162; Q9967

== ENCOUNTER 2022-03-27 08:34 | Observation (INO) | payer MEDICARE ==
[2022-03-26 09:48] LABS: BASOPHILS % 0.3 % (0.0-1.0); EOSINOPHILS % 0.3 % (0.0-6.0); HEMATOCRIT 31.6 % (34.2-44.1); HEMOGLOBIN 10.1 g/dL (12.0-16.0); LYMPHOCYTES # (AUTO) 1.1 (1.0-3.2); LYMPHOCYTES % 16.9 % (18.0-39.1); MEAN CORPUSCULAR HEMOGLOBIN 29.5 pg (28-32); MEAN CORPUSCULAR VOLUME 92.4 fL (81-99); MONOCYTES # (AUTO) 0.5 (0.2-0.8); MONOCYTES % 7.6 % (4.4-11.3); NEUTROPHILS % 74.8 % (38.7-80.0); PLATELET COUNT 204 x10e3/uL (140-360); RED BLOOD COUNT 3.42 x10e6/uL (3.6-5.1)
[2022-03-26 10:10] LABS: ALANINE AMINOTRANSFERASE 8 IU/L (0-55); ALBUMIN 2.7 g/dL (3.5-5.0); ALBUMIN/GLOBULIN RATIO 0.5 (0.8-2.0); ALKALINE PHOSPHATASE 141 IU/L (40-150); ANION GAP 15.3 mmol/L (8-16); BLOOD UREA NITROGEN 30 mg/dL (7-26); BUN/CREATININE RATIO 23 (6-25); CALCIUM 9.8 mg/dL (8.4-10.2); CARBON DIOXIDE 24 mmol/L (22-29); CHLORIDE 105 mmol/L (98-107); CREATININE, SERUM 1.33 mg/dL (0.57-1.11); GLUCOSE 85 mg/dL (74-118); POTASSIUM 4.3 mmol/L (3.5-5.1); SODIUM 140 mmol/L (136-145)
[~2022-03-27] VITALS: Ht 170.2 cm; Wt 103.9 kg
[2022-03-27] MEDS ORDERED: BUPIVACAINE HCL 0.25% 10ML MPF VIAL INJ ONE (08:44)
[2022-03-27 08:54] LABS: CLARITY,URINE SL CLOUDY (CLEAR); COLOR,URINE YELLOW (YELLOW); LEUKOCYTE ESTERASE ,URINE SMALL (NEGATIVE); NITRITE,URINE POSITIVE (NEGATIVE); PROTEIN,URINE DIPSTICK >=300 (NEGATIVE)
[2022-03-27 08:55] LABS: KETONES,URINE NEGATIVE (NEGATIVE); URINE UROBILINOGEN 0.2 mg/dL (0.2 - 1)
[2022-03-27] MEDS ORDERED: BUPIVACAINE HC 0.75% PF 10ML VIAL INJ ONE (11:24)
[2022-03-27] MEDS ORDERED: LEVOFLOXACIN 500MG/D5W 100ML 100 ML IV ONE (11:41)
[2022-03-27] MEDS ORDERED: HYDROMORPHONE 1MG/1ML INJ IV PRN (13:30)
[2022-03-27] MEDS ORDERED: FENTANYL CITRATE/PF 100MCG/2 ML INJ ONE ×2 (14:04→14:25)
[2022-03-27] MEDS ORDERED: MIDAZOLAM HCL 2 MG/2 ML VIAL ONE (14:25)
[2022-03-27 15:15] VITALS: BP 150/70
[2022-03-27] MEDS ORDERED: DEXTROSE 50% SYRINGE 50 ML IV PRN (15:30)
[2022-03-27 16:23] VITALS: BP 150/72
[2022-03-27] MEDS ORDERED: POVIDONE IODINE 0.05% 0.05 % ML PO ONE (17:28)
[2022-03-27] MEDS ORDERED: ROCURONIUM BROMIDE 10 MG/ML 5ML VIAL IV ONE (17:28)
[2022-03-27] MEDS ORDERED: SEVOFLURANE INHAL SOLN 250 ML PEN BTL ONE (17:28)
[2022-03-27] MEDS ORDERED: ONDANSETRON HCL INJ 2MG/ML 2ML 2 MG/ML VIAL ONE (17:28)
[2022-03-27] MEDS ORDERED: DEXAMETHASONE SOD PHOS INJ 4 MG/ML SDV ONE (17:28)
[2022-03-27] MEDS ORDERED: PROPOFOL IV EMULSION 10 MG/ML 20 ML VIAL ONE (17:28)
[2022-03-27] MEDS: INSULIN REGULAR, HUMAN 100 UNIT/1 ML SQ SCH ×2 (18:00→23:30)
[2022-03-27] MEDS ORDERED: ACETAMINOPHEN 1000 MG/100 ML IV PRN (18:00)
[2022-03-27 20:00] VITALS: BP 148/70
[2022-03-27 21:00] VITALS: BP 148/70
[2022-03-28] VITALS: BP 153/75
[2022-03-28] MEDS: SODIUM CHLORIDE 0.9% 1000ML 1,000 ML IV SCH ×2 (01:08→09:44)
[2022-03-28 04:00] VITALS: BP 148/67
[2022-03-28 04:53] LABS: BASOPHILS % 0.1 % (0.0-1.0); HEMATOCRIT 32.1 % (34.2-44.1); HEMOGLOBIN 10.5 g/dL (12.0-16.0); LYMPHOCYTES # (AUTO) 0.6 (1.0-3.2); LYMPHOCYTES % 8.5 % (18.0-39.1); MEAN CORPUSCULAR HEMOGLOBIN 29.3 pg (28-32); MEAN CORPUSCULAR HGB CONC 32.7 g/dL (31-35); MEAN CORPUSCULAR VOLUME 89.7 fL (81-99); MONOCYTES # (AUTO) 0.6 (0.2-0.8); NEUTROPHILS # (AUTO) 5.7 (2.1-6.9); NEUTROPHILS % 83.1 % (38.7-80.0); PLATELET COUNT 180 x10e3/uL (140-360); RED BLOOD COUNT 3.58 x10e6/uL (3.6-5.1); RED CELL DISTRIBUTION WIDTH 13.7 % (11.7-14.4)
[2022-03-28 05:17] LABS: ALBUMIN 2.3 g/dL (3.5-5.0); ALBUMIN/GLOBULIN RATIO 0.5 (0.8-2.0); ANION GAP 13.4 mmol/L (8-16); CALCIUM 9.4 mg/dL (8.4-10.2); CREATININE, SERUM 1.19 mg/dL (0.57-1.11); POTASSIUM 4.4 mmol/L (3.5-5.1)
[2022-03-28] MEDS: INSULIN REGULAR, HUMAN 100 UNIT/1 ML SQ SCH (06:00)
[2022-03-28 08:00] VITALS: BP 125/48
[2022-03-28] MEDS ORDERED: FUROSEMIDE 40 MG TAB PO SCH (09:00)
[2022-03-28] MEDS ORDERED: AMLODIPINE BESYLATE 5 MG TAB PO SCH (09:00)
[2022-03-28] MEDS: HYDROCODONE/APAP 7.5MG-325MG 1 EA TAB PO PRN ×2 (09:37→16:42)
[2022-03-28] MEDS ORDERED: LEVOFLOXACIN 500MG/D5W 100ML 100 ML IV ONE (10:00)
[2022-03-28 12:00] VITALS: BP 122/50
[2022-03-28 17:11] VITALS: BP 115/51
[2022-03-29] MEDS ORDERED: COLLAGENASE OINTMENT 30 GM TUBE TP SCH (09:00)
== END 2022-03-28 20:54 | disposition home or self-care (01) ==
LOC: OR 08:34 → PACU V 13:18 → MED/SURG 15:22
PROVIDERS: ADMIT Surgery; ATTEND Surgery
DX: K80.00 Calculus of gallbladder with acute cholecystitis without obstruction (principal); K82.8 Other specified diseases of gallbladder; N99.4 Postprocedural pelvic peritoneal adhesions; I10 Essential (primary) hypertension; I70.245 Atherosclerosis of native arteries of left leg with ulceration of other part of foot; E78.00 Pure hypercholesterolemia, unspecified; I25.118 Atherosclerotic heart disease of native coronary artery with other forms of angina pectoris; Z96.3 Presence of artificial larynx; E66.9 Obesity, unspecified; E11.51 Type 2 diabetes mellitus with diabetic peripheral angiopathy without gangrene; Z79.4 Long term (current) use of insulin; E78.5 Hyperlipidemia, unspecified; I87.2 Venous insufficiency (chronic) (peripheral); Z85.42 Personal history of malignant neoplasm of other parts of uterus; I25.10 Atherosclerotic heart disease of native coronary artery without angina pectoris; Z95.2 Presence of prosthetic heart valve; E66.09 Other obesity due to excess calories; Z68.35 Body mass index [BMI] 35.0-35.9, adult; Z88.0 Allergy status to penicillin; E11.69 Type 2 diabetes mellitus with other specified complication
CPT/HCPCS: 0223U; 36415 ×2; 47562; 49329; 80053 ×2; 81003; 82948 ×2; 85025 ×2; 88304; 93005; 97602; 99251; C1766; G0378 ×2; J1100; J1817; J1956 ×2; J2250; J2405; J2704; J3010; J7030

== ENCOUNTER → 2022-04-10 | Outpatient (CLI) | payer MEDICARE | LOC: RAD 12:04 | PROVIDERS: ATTEND Family Medicine | DX: E11.621 Type 2 diabetes mellitus with foot ulcer (principal); L97.426 Non-pressure chronic ulcer of left heel and midfoot with bone involvement without evidence of necrosis; I87.2 Venous insufficiency (chronic) (peripheral); R60.0 Localized edema ==

== ENCOUNTER → 2022-04-12 | Outpatient (CLI) | payer MEDICARE | LOC: RAD 12:30 | PROVIDERS: ATTEND Family Medicine | DX: E11.621 Type 2 diabetes mellitus with foot ulcer (principal); L97.426 Non-pressure chronic ulcer of left heel and midfoot with bone involvement without evidence of necrosis; I87.2 Venous insufficiency (chronic) (peripheral); R60.0 Localized edema | CPT/HCPCS: 93922; 93926; 93971 ==

== ENCOUNTER → 2022-04-23 | Outpatient (CLI) | payer MEDICARE | LOC: MRI 14:12 | PROVIDERS: ATTEND Family Medicine | DX: E11.621 Type 2 diabetes mellitus with foot ulcer (principal); L97.426 Non-pressure chronic ulcer of left heel and midfoot with bone involvement without evidence of necrosis ==

== ENCOUNTER 2022-04-25 08:39 | Outpatient (RCR) | payer MEDICARE ==
[~2022-04-25 08:39] MED LIST changes: +LIDOCAINE VISC 2% SOLN 15 ML UDC ONE; +MINERAL OIL/PETROLAT/GLYCERI 6OZ BTL ONE; +MUPIROCIN 2% OINT 22 GM TUBE ONE
== END 2022-04-26 ==
LOC: WCC 08:39
PROVIDERS: ATTEND Family Medicine
DX: E11.621 Type 2 diabetes mellitus with foot ulcer (principal); E11.628 Type 2 diabetes mellitus with other skin complications; L97.426 Non-pressure chronic ulcer of left heel and midfoot with bone involvement without evidence of necrosis; L97.821 Non-pressure chronic ulcer of other part of left lower leg limited to breakdown of skin; I87.312 Chronic venous hypertension (idiopathic) with ulcer of left lower extremity; I87.2 Venous insufficiency (chronic) (peripheral); R60.0 Localized edema; I10 Essential (primary) hypertension; E66.3 Overweight; Y92.099 Unspecified place in other non-institutional residence as the place of occurrence of the external cause
CPT/HCPCS: 36415; 82948; 83036; 87071; 87075; 87186; 87205

== ENCOUNTER → 2022-05-22 | Outpatient (CLI) | payer MEDICARE ==
[~2022-05-22] MED LIST changes: -LIDOCAINE VISC 2% SOLN 15 ML UDC ONE; -MINERAL OIL/PETROLAT/GLYCERI 6OZ BTL ONE; -MUPIROCIN 2% OINT 22 GM TUBE ONE
[2022-05-22 14:58] LABS: HEMOGLOBIN 8.9 g/dL (12.0-16.0)
[2022-05-22 15:06] LABS: INR 0.94; PROTHROMBIN TIME 13.4 seconds (11.9-14.5)
[2022-05-22 15:07] LABS: PARTIAL THROMBOPLASTIN TIME 26.7 seconds (23.8-35.5)
[2022-05-22 15:13] LABS: CREATININE, SERUM 1.26 mg/dL (0.57-1.11)
== END ==
LOC: DX 14:25
PROVIDERS: ATTEND Internal Medicine Infectious Disease
DX: E11.621 Type 2 diabetes mellitus with foot ulcer (principal); L97.426 Non-pressure chronic ulcer of left heel and midfoot with bone involvement without evidence of necrosis
CPT/HCPCS: 36415; 36569; 71045; 82565; 84520; 85014; 85049; 85610; 85730

== ENCOUNTER → 2022-05-27 | Outpatient (RCR) | payer MEDICARE ==
[~2022-05-27] MED LIST changes: +COLLAGENASE OINTMENT 30 GM TUBE ONE; +LIDOCAINE VISC 2% SOLN 15 ML UDC ONE; +MINERAL OIL/PETROLAT/GLYCERI 2OZ CRM ONE; +MINERAL OIL/PETROLAT/GLYCERI 6OZ BTL ONE; +MUPIROCIN 2% OINT 22 GM TUBE ONE; +TRIAMCINOLONE ACET 0.1% CREAM 15 GM TUBE ONE
== END ==
LOC: WCC 05-01 15:28
PROVIDERS: ATTEND Internal Medicine Infectious Disease
DX: E11.621 Type 2 diabetes mellitus with foot ulcer (principal); E11.628 Type 2 diabetes mellitus with other skin complications; I87.312 Chronic venous hypertension (idiopathic) with ulcer of left lower extremity; L97.426 Non-pressure chronic ulcer of left heel and midfoot with bone involvement without evidence of necrosis; L97.521 Non-pressure chronic ulcer of other part of left foot limited to breakdown of skin; L97.821 Non-pressure chronic ulcer of other part of left lower leg limited to breakdown of skin; I87.2 Venous insufficiency (chronic) (peripheral); R60.0 Localized edema; S90.425A Blister (nonthermal), left lesser toe(s), initial encounter; I10 Essential (primary) hypertension; A49.02 Methicillin resistant Staphylococcus aureus infection, unspecified site; E66.3 Overweight; R26.89 Other abnormalities of gait and mobility; Y92.099 Unspecified place in other non-institutional residence as the place of occurrence of the external cause; Z01.810 Encounter for preprocedural cardiovascular examination; Z01.811 Encounter for preprocedural respiratory examination
CPT/HCPCS: 11042 ×2; 29581 ×8; 36415 ×5; 71046; 82948 ×5; 87071; 87075; 87186; 87205; 93005; 97602 ×2; 99203; 99213 ×6; 99214; G0277 ×5

== ENCOUNTER → 2022-05-29 | Outpatient (CLI) | payer MEDICARE ==
[~2022-05-29] MED LIST changes: -COLLAGENASE OINTMENT 30 GM TUBE ONE; -LIDOCAINE VISC 2% SOLN 15 ML UDC ONE; -MINERAL OIL/PETROLAT/GLYCERI 2OZ CRM ONE; -MINERAL OIL/PETROLAT/GLYCERI 6OZ BTL ONE; -MUPIROCIN 2% OINT 22 GM TUBE ONE; +SODIUM CHLORIDE 0.9% 500ML 500 ML ONE; -TRIAMCINOLONE ACET 0.1% CREAM 15 GM TUBE ONE
== END ==
LOC: CT 14:10
PROVIDERS: ATTEND Family Medicine
DX: E11.621 Type 2 diabetes mellitus with foot ulcer (principal); L97.426 Non-pressure chronic ulcer of left heel and midfoot with bone involvement without evidence of necrosis
CPT/HCPCS: 73706; 96360; J7040

== ENCOUNTER 2022-06-24 13:20 | Outpatient (RCR) | payer MEDICARE ==
[~2022-06-24 13:20] MED LIST changes: +COLLAGENASE OINTMENT 30 GM TUBE ONE; +IOPAMIDOL 370 MG/ML 100 ML INFUS..BTL INJ ONE; +LIDOCAINE VISC 2% SOLN 15 ML UDC ONE; +MINERAL OIL/PETROLAT/GLYCERI 2OZ CRM ONE; +MINERAL OIL/PETROLAT/GLYCERI 6OZ BTL ONE; +MUPIROCIN 2% OINT 22 GM TUBE ONE; +SILVER SULFADIAZINE 50GM CREAM ONE; +SODIUM CHLORIDE 0.9% 250ML 250 ML ONE
== END 2022-06-26 ==
LOC: WCC 13:20
PROVIDERS: ATTEND Family Medicine
DX: E11.621 Type 2 diabetes mellitus with foot ulcer (principal); E11.628 Type 2 diabetes mellitus with other skin complications; M86.172 Other acute osteomyelitis, left ankle and foot; L97.426 Non-pressure chronic ulcer of left heel and midfoot with bone involvement without evidence of necrosis; I87.2 Venous insufficiency (chronic) (peripheral); R60.0 Localized edema; I10 Essential (primary) hypertension; B96.89 Other specified bacterial agents as the cause of diseases classified elsewhere; R26.89 Other abnormalities of gait and mobility; E66.3 Overweight; Z01.810 Encounter for preprocedural cardiovascular examination; Z01.811 Encounter for preprocedural respiratory examination; Y92.099 Unspecified place in other non-institutional residence as the place of occurrence of the external cause
CPT/HCPCS: 11042; 29581 ×8; 36415 ×14; 82948 ×14; 99212; 99213 ×8; G0277 ×13; J7040; J7050; Q9967

== ENCOUNTER → 2022-06-26 | Day surgery (SDC) | payer MEDICARE ==
[2022-06-25 12:11] LABS: BASOPHILS % 0.5 % (0.0-1.0); EOSINOPHILS # (AUTO) 0.1 (0.0-0.4); EOSINOPHILS % 2.5 % (0.0-6.0); HEMATOCRIT 29.4 % (34.2-44.1); HEMOGLOBIN 8.8 g/dL (12.0-16.0); LYMPHOCYTES # (AUTO) 0.9 (1.0-3.2); LYMPHOCYTES % 22.9 % (18.0-39.1); MEAN CORPUSCULAR HEMOGLOBIN 29.4 pg (28-32); MEAN CORPUSCULAR HGB CONC 29.9 g/dL (31-35); MEAN CORPUSCULAR VOLUME 98.3 fL (81-99); MONOCYTES # (AUTO) 0.3 (0.2-0.8); MONOCYTES % 7.5 % (4.4-11.3); NEUTROPHILS # (AUTO) 2.7 (2.1-6.9); NEUTROPHILS % 66.1 % (38.7-80.0); PLATELET COUNT 123 x10e3/uL (140-360); RED BLOOD COUNT 2.99 x10e6/uL (3.6-5.1); RED CELL DISTRIBUTION WIDTH 15.9 % (11.7-14.4)
[2022-06-25 12:30] LABS: ANION GAP 15.4 mmol/L (8-16); CALCIUM 9.6 mg/dL (8.4-10.2); CREATININE, SERUM 1.37 mg/dL (0.57-1.11); POTASSIUM 4.4 mmol/L (3.5-5.1)
[~2022-06-26] VITALS: Ht 170.2 cm; Wt 103.9 kg
[2022-06-26] VITALS (9 sets, daily range): BP systolic 98–122; BP diastolic 49–56
[~2022-06-26] MED LIST changes: -COLLAGENASE OINTMENT 30 GM TUBE ONE; +FENTANYL CITRATE/PF 100MCG/2 ML INJ ONE; +HEPARIN SOD/SOD CHLORIDE 2,000 ML ONE; +IOPAMIDOL 300MG/ML 100 ML INFUS..BTL IV ONE; -IOPAMIDOL 370 MG/ML 100 ML INFUS..BTL INJ ONE; +LIDOCAINE HCL 1% 30ML-PF VIAL ONE; -LIDOCAINE VISC 2% SOLN 15 ML UDC ONE; +MIDAZOLAM HCL 2 MG/2 ML VIAL ONE; -MINERAL OIL/PETROLAT/GLYCERI 2OZ CRM ONE; -MINERAL OIL/PETROLAT/GLYCERI 6OZ BTL ONE; -MUPIROCIN 2% OINT 22 GM TUBE ONE; +PROTAMINE SULFATE 10 MG/ML 5 ML VIAL ONE; -SILVER SULFADIAZINE 50GM CREAM ONE; +SODIUM CHLORIDE 0.9% 1000ML 1,000 ML ONE; -SODIUM CHLORIDE 0.9% 250ML 250 ML ONE; -SODIUM CHLORIDE 0.9% 500ML 500 ML ONE
== END | disposition home or self-care (01) ==
LOC: CATH LAB 09:12
PROVIDERS: ATTEND Surgery Vascular Surgery
DX: I70.249 Atherosclerosis of native arteries of left leg with ulceration of unspecified site (principal); Z88.0 Allergy status to penicillin; Z01.812 Encounter for preprocedural laboratory examination; Z79.82 Long term (current) use of aspirin; Z79.4 Long term (current) use of insulin; Z79.899 Other long term (current) drug therapy; Z68.35 Body mass index [BMI] 35.0-35.9, adult
CPT/HCPCS: 36140; 36415; 75710; 76937; 80048; 85025; C1725; C1760; C1769; C1887; C1894; J2001; J2250; J2720; J3010; J7030; Q9967; 36247; 37228; 99152; 99153

== ENCOUNTER → 2022-08-27 | Outpatient (RCR) | payer MEDICARE ==
[~2022-08-27] MED LIST changes: -FENTANYL CITRATE/PF 100MCG/2 ML INJ ONE; -HEPARIN SOD/SOD CHLORIDE 2,000 ML ONE; -IOPAMIDOL 300MG/ML 100 ML INFUS..BTL IV ONE; -LIDOCAINE HCL 1% 30ML-PF VIAL ONE; +LIDOCAINE VISC 2% SOLN 15 ML UDC ONE; +MECLIZINE HCL12.5 MG PO; -MIDAZOLAM HCL 2 MG/2 ML VIAL ONE; +MINERAL OIL/PETROLAT/GLYCERI 6OZ BTL ONE; -PROTAMINE SULFATE 10 MG/ML 5 ML VIAL ONE; -SODIUM CHLORIDE 0.9% 1000ML 1,000 ML ONE; +TRIAMCINOLONE ACET 0.1% CREAM 15 GM TUBE ONE
== END ==
LOC: WCC 07-30 14:13
PROVIDERS: ATTEND Family Medicine Adult Medicine
DX: E11.621 Type 2 diabetes mellitus with foot ulcer (principal); E11.628 Type 2 diabetes mellitus with other skin complications; M86.172 Other acute osteomyelitis, left ankle and foot; L97.426 Non-pressure chronic ulcer of left heel and midfoot with bone involvement without evidence of necrosis; I87.2 Venous insufficiency (chronic) (peripheral); S90.422A Blister (nonthermal), left great toe, initial encounter; L84 Corns and callosities; R60.0 Localized edema; I10 Essential (primary) hypertension; B96.89 Other specified bacterial agents as the cause of diseases classified elsewhere; E66.3 Overweight; R26.89 Other abnormalities of gait and mobility; Y92.099 Unspecified place in other non-institutional residence as the place of occurrence of the external cause; Z01.810 Encounter for preprocedural cardiovascular examination; Z01.811 Encounter for preprocedural respiratory examination
CPT/HCPCS: 11042 ×4; 29581 ×6; 36415 ×5; 82948 ×5; 87071; 87075; 87186; 87205; 99213 ×3; 99214 ×4; G0277 ×3

== ENCOUNTER 2022-09-20 15:00 | Outpatient (RCR) | payer MEDICARE ==
[~2022-09-20 15:00] MED LIST changes: -LIDOCAINE VISC 2% SOLN 15 ML UDC ONE; -MINERAL OIL/PETROLAT/GLYCERI 6OZ BTL ONE; -TRIAMCINOLONE ACET 0.1% CREAM 15 GM TUBE ONE
== END 2022-09-24 ==
LOC: PT 15:00
PROVIDERS: ATTEND Family Medicine Adult Medicine
DX: R26.2 Difficulty in walking, not elsewhere classified (principal); R26.89 Other abnormalities of gait and mobility

== ENCOUNTER → 2022-09-24 | Outpatient (RCR) | payer MEDICARE ==
[~2022-09-24] MED LIST changes: +GENTAMICIN SULFATE 15 GM CR TP ONE; +LIDOCAINE VISC 2% SOLN 15 ML UDC ONE; +MINERAL OIL/PETROLAT/GLYCERI 6OZ BTL ONE; +MUPIROCIN 2% OINT 22 GM TUBE ONE; +TRIAMCINOLONE ACET 0.1% CREAM 15 GM TUBE ONE
== END ==
LOC: WCC 08-28 14:01
PROVIDERS: ATTEND Family Medicine Adult Medicine
DX: E11.621 Type 2 diabetes mellitus with foot ulcer (principal); L97.426 Non-pressure chronic ulcer of left heel and midfoot with bone involvement without evidence of necrosis
CPT/HCPCS: 10140; 11042 ×3; 29581 ×8; 36415 ×13; 82948 ×13; 87071; 87075; 87186; 87205; 93922; 97607 ×3; 99213 ×7; 99214; G0277 ×14

== ENCOUNTER 2022-09-27 07:54 | Outpatient (RCR) | payer MEDICARE ==
[~2022-09-27 07:54] MED LIST changes: -GENTAMICIN SULFATE 15 GM CR TP ONE; -LIDOCAINE VISC 2% SOLN 15 ML UDC ONE; -MINERAL OIL/PETROLAT/GLYCERI 6OZ BTL ONE; -MUPIROCIN 2% OINT 22 GM TUBE ONE; -TRIAMCINOLONE ACET 0.1% CREAM 15 GM TUBE ONE
== END 2022-10-25 ==
LOC: PT 07:54
PROVIDERS: ATTEND Family Medicine Adult Medicine
DX: R26.89 Other abnormalities of gait and mobility (principal)

== ENCOUNTER 2022-10-28 03:08 | Inpatient (IN) | payer MEDICARE, OTHER ==
[~2022-10-28] VITALS: Ht 170.2 cm; Wt 103.9 kg
[2022-10-28] MEDS ORDERED: SODIUM CHLORIDE 0.9% 1000ML 1,000 ML IV ONE (03:45)
[2022-10-28 03:53] LABS: BASOPHILS % 0.2 % (0.0-1.0); EOSINOPHILS % 0.7 % (0.0-6.0); HEMATOCRIT 28.9 % (34.2-44.1); HEMOGLOBIN 8.7 g/dL (12.0-16.0); LYMPHOCYTES # (AUTO) 0.7 (1.0-3.2); LYMPHOCYTES % 15.7 % (18.0-39.1); MEAN CORPUSCULAR HEMOGLOBIN 29.3 pg (28-32); MEAN CORPUSCULAR HGB CONC 30.1 g/dL (31-35); MEAN CORPUSCULAR VOLUME 97.3 fL (81-99); MONOCYTES # (AUTO) 0.5 (0.2-0.8); MONOCYTES % 11.3 % (4.4-11.3); NEUTROPHILS % 71.9 % (38.7-80.0); PLATELET COUNT 147 x10e3/uL (140-360); RED BLOOD COUNT 2.97 x10e6/uL (3.6-5.1); RED CELL DISTRIBUTION WIDTH 15.4 % (11.7-14.4)
[2022-10-28 04:05] LABS: ALBUMIN 2.9 g/dL (3.5-5.0); ALBUMIN/GLOBULIN RATIO 0.7 (0.8-2.0); ANION GAP 12.5 mmol/L (8-16); CALCIUM 9.3 mg/dL (8.4-10.2); CREATININE, SERUM 1.29 mg/dL (0.57-1.11); POTASSIUM 3.5 mmol/L (3.5-5.1)
[2022-10-28] MEDS ORDERED: SODIUM CHLORIDE 0.9% 1000ML 1,000 ML ONE (04:30)
[2022-10-28 04:33] LABS: AMPHETAMINES SCREEN,URINE NEGATIVE (NEGATIVE); BENZODIAZEPINES SCREEN,URINE NEGATIVE (NEGATIVE); CLARITY,URINE CLOUDY (CLEAR); COLOR,URINE YELLOW (YELLOW); KETONES,URINE TRACE (NEGATIVE); LEUKOCYTE ESTERASE ,URINE NEGATIVE (NEGATIVE); NITRITE,URINE NEGATIVE (NEGATIVE); PHENCYCLIDINE SCREEN,URINE NEGATIVE (NEGATIVE); PROTEIN,URINE DIPSTICK >=300 (NEGATIVE)
[2022-10-28 04:34] LABS: URINE UROBILINOGEN 0.2 mg/dL (0.2 - 1)
[2022-10-28 04:43] LABS: BACTERIA,URINE MANY /HPF; EPITHELIAL CELLS,URINE FEW /LPF
[2022-10-28] MEDS ORDERED: ONDANSETRON HCL INJ 2MG/ML 2ML 2 MG/ML VIAL IV PRN (05:30)
[2022-10-28 14:52] VITALS: BP 176/66
[2022-10-28 16:06] VITALS: BP 176/66
[2022-10-28 16:13] VITALS: BP 176/66
[2022-10-28] MEDS ORDERED: DEXTROSE 50% SYRINGE 50 ML IV PRN (19:30)
[2022-10-28 20:08] LABS: CREATINE KINASE MB 2.8 ng/mL (0-5.0)
[2022-10-28] MEDS: INSULIN LISPRO 100 UNIT/1 ML 3ML VIAL SQ SCH (21:00)
[2022-10-28 21:15] VITALS: BP 170/58
[2022-10-28] MEDS ORDERED: CLONIDINE HCL 0.1 MG TAB PO PRN (21:15)
[2022-10-28] MEDS ORDERED: HYDRALAZINE HCL 20 MG/ML VIAL IV PRN (21:15)
[2022-10-28 23:06] VITALS: BP 170/58
[2022-10-29] VITALS (8 sets, daily range): BP systolic 141–165; BP diastolic 50–64
[2022-10-29 05:58] LABS: BASOPHILS % 0.2 % (0.0-1.0); EOSINOPHILS # (AUTO) 0.1 (0.0-0.4); EOSINOPHILS % 1.3 % (0.0-6.0); HEMATOCRIT 28.4 % (34.2-44.1); HEMOGLOBIN 8.9 g/dL (12.0-16.0); LYMPHOCYTES # (AUTO) 0.7 (1.0-3.2); LYMPHOCYTES % 14.1 % (18.0-39.1); MEAN CORPUSCULAR HEMOGLOBIN 29.4 pg (28-32); MEAN CORPUSCULAR HGB CONC 31.3 g/dL (31-35); MEAN CORPUSCULAR VOLUME 93.7 fL (81-99); MONOCYTES # (AUTO) 0.3 (0.2-0.8); MONOCYTES % 6.9 % (4.4-11.3); NEUTROPHILS # (AUTO) 3.6 (2.1-6.9); NEUTROPHILS % 77.3 % (38.7-80.0); PLATELET COUNT 149 x10e3/uL (140-360); RED BLOOD COUNT 3.03 x10e6/uL (3.6-5.1); RED CELL DISTRIBUTION WIDTH 15.4 % (11.7-14.4)
[2022-10-29 06:26] LABS: ALBUMIN 2.4 g/dL (3.5-5.0); ALBUMIN/GLOBULIN RATIO 0.7 (0.8-2.0); ANION GAP 9.6 mmol/L (8-16); CALCIUM 9.2 mg/dL (8.4-10.2); CREATININE, SERUM 1.17 mg/dL (0.57-1.11); POTASSIUM 3.6 mmol/L (3.5-5.1)
[2022-10-29] MEDS: INSULIN LISPRO 100 UNIT/1 ML 3ML VIAL SQ SCH ×4 (07:30→21:00)
[2022-10-29] MEDS: ASPIRIN 81 MG ENTERIC COATED PO SCH (08:05)
[2022-10-29] MEDS: AMLODIPINE BESYLATE 5 MG TAB PO SCH (08:05)
[2022-10-29] MEDS: INSULIN GLARGINE 100 UNITS/ML VIAL SQ SCH ×2 (08:06→18:33)
[2022-10-29] MEDS ORDERED: ONDANSETRON HCL 4 MG ORAL DISINTEGRATING TAB PO PRN (10:15)
[2022-10-29] MEDS: ENOXAPARIN 30 MG/0.3 ML SYR SC SCH (18:22)
[2022-10-29] MEDS: ACETAMINOPHEN 325 MG TAB PO PRN (18:27)
[2022-10-30] MEDS: ACETAMINOPHEN 325 MG TAB PO PRN (00:22)
[2022-10-30] MEDS: INSULIN LISPRO 100 UNIT/1 ML 3ML VIAL SQ SCH ×4 (07:30→22:21)
[2022-10-30 07:57] VITALS: BP 132/55
[2022-10-30 08:04] VITALS: BP 132/55
[2022-10-30] MEDS: AMLODIPINE BESYLATE 5 MG TAB PO SCH (10:01)
[2022-10-30] MEDS: ASPIRIN 81 MG ENTERIC COATED PO SCH (10:01)
[2022-10-30] MEDS: INSULIN GLARGINE 100 UNITS/ML VIAL SQ SCH ×2 (10:07→22:22)
[2022-10-30 11:52] VITALS: BP 165/53
[2022-10-30 16:22] VITALS: BP 126/51
[2022-10-30] MEDS: ENOXAPARIN 30 MG/0.3 ML SYR SC SCH (16:55)
[2022-10-30 20:00] VITALS: BP 138/57
[2022-10-31 04:00] VITALS: BP 148/50
[2022-10-31] MEDS: INSULIN LISPRO 100 UNIT/1 ML 3ML VIAL SQ SCH ×4 (07:30→22:21)
[2022-10-31] MEDS: INSULIN GLARGINE 100 UNITS/ML VIAL SQ SCH ×2 (09:00→22:22)
[2022-10-31 09:11] VITALS: BP 137/50
[2022-10-31] MEDS: ASPIRIN 81 MG ENTERIC COATED PO SCH (10:14)
[2022-10-31] MEDS: AMLODIPINE BESYLATE 5 MG TAB PO SCH (10:14)
[2022-10-31 12:57] VITALS: BP 133/48
[2022-10-31 16:04] VITALS: BP 145/50
[2022-10-31] MEDS: ENOXAPARIN 30 MG/0.3 ML SYR SC SCH (17:52)
[2022-10-31 20:00] VITALS: BP 151/55
[2022-11-01] VITALS (7 sets, daily range): BP systolic 129–143; BP diastolic 50–75
[2022-11-01 06:03] LABS: EOSINOPHILS # (AUTO) 0.1 (0.0-0.4); HEMATOCRIT 27.1 % (34.2-44.1); HEMOGLOBIN 8.5 g/dL (12.0-16.0); LYMPHOCYTES # (AUTO) 0.7 (1.0-3.2); LYMPHOCYTES % 16.6 % (18.0-39.1); MEAN CORPUSCULAR HEMOGLOBIN 29.6 pg (28-32); MEAN CORPUSCULAR HGB CONC 31.4 g/dL (31-35); MEAN CORPUSCULAR VOLUME 94.4 fL (81-99); MONOCYTES # (AUTO) 0.3 (0.2-0.8); MONOCYTES % 7.5 % (4.4-11.3); NEUTROPHILS # (AUTO) 3.1 (2.1-6.9); NEUTROPHILS % 72.7 % (38.7-80.0); PLATELET COUNT 152 x10e3/uL (140-360); RED BLOOD COUNT 2.87 x10e6/uL (3.6-5.1); RED CELL DISTRIBUTION WIDTH 15.5 % (11.7-14.4)
[2022-11-01 07:11] LABS: ANION GAP 11.1 mmol/L (8-16); CALCIUM 8.4 mg/dL (8.4-10.2); CREATININE, SERUM 1.45 mg/dL (0.57-1.11); POTASSIUM 4.1 mmol/L (3.5-5.1)
[2022-11-01] MEDS: INSULIN LISPRO 100 UNIT/1 ML 3ML VIAL SQ SCH ×2 (07:30→11:30)
[2022-11-01] MEDS: INSULIN GLARGINE 100 UNITS/ML VIAL SQ SCH (09:00)
[2022-11-01] MEDS: ASPIRIN 81 MG ENTERIC COATED PO SCH (09:22)
[2022-11-01] MEDS: AMLODIPINE BESYLATE 5 MG TAB PO SCH (09:22)
[2022-11-01] MEDS ORDERED: MACROBID 100 M100 MG PO (15:30)
== END 2022-11-01 16:25 | disposition home or self-care (01) | DRG 689 ==
LOC: ER 03:13 → ERHOLD 05:22 → MED/SURG3 14:37 → OBSVTOIN 10-30 09:09
PROVIDERS: ADMIT Family Medicine; ATTEND Family Medicine
DX: N39.0 Urinary tract infection, site not specified (principal); G93.41 Metabolic encephalopathy; N17.9 Acute kidney failure, unspecified; E66.01 Morbid (severe) obesity due to excess calories; I12.9 Hypertensive chronic kidney disease with stage 1 through stage 4 chronic kidney disease, or unspecified chronic kidney disease; E11.22 Type 2 diabetes mellitus with diabetic chronic kidney disease; N18.9 Chronic kidney disease, unspecified; E78.5 Hyperlipidemia, unspecified; M54.9 Dorsalgia, unspecified; G89.29 Other chronic pain; R44.1 Visual hallucinations; E11.51 Type 2 diabetes mellitus with diabetic peripheral angiopathy without gangrene; M19.90 Unspecified osteoarthritis, unspecified site; Z85.42 Personal history of malignant neoplasm of other parts of uterus; Z92.3 Personal history of irradiation; Z95.2 Presence of prosthetic heart valve; Z88.0 Allergy status to penicillin; D63.1 Anemia in chronic kidney disease; Z79.82 Long term (current) use of aspirin; Z89.421 Acquired absence of other right toe(s); Z68.35 Body mass index [BMI] 35.0-35.9, adult; Z79.4 Long term (current) use of insulin
CPT/HCPCS: 36415; 70450; 71045; 80048; 80053; 80307; 81001; 82550; 82553; 82948; 83036; 84484; 85025; 87086; 87186; 93005; 97605; 99252; 99285; G0378; J0696; J1650; J1815; J2185; J7030

== ENCOUNTER 2022-11-20 14:21 | Outpatient (RCR) | payer MEDICARE, OTHER ==
[~2022-11-20 14:21] MED LIST changes: +LIDOCAINE VISC 2% SOLN 15 ML UDC ONE; +MACROBID 100 M100 MG PO; +MINERAL OIL/PETROLAT/GLYCERI 2OZ CRM ONE; +MUPIROCIN 2% OINT 22 GM TUBE ONE; +TRIAMCINOLONE ACET 0.1% CREAM 15 GM TUBE ONE
[2022-11-22] MEDS ORDERED: LEVOFLOXACIN250 MG PO (09:08)
[2022-11-22] MEDS ORDERED: ATORVASTATIN CA20 MG PO (09:08)
== END 2022-11-24 ==
LOC: WCC 14:21
PROVIDERS: ATTEND Family Medicine Adult Medicine
DX: E11.621 Type 2 diabetes mellitus with foot ulcer (principal); L97.426 Non-pressure chronic ulcer of left heel and midfoot with bone involvement without evidence of necrosis; I83.12 Varicose veins of left lower extremity with inflammation; R60.0 Localized edema; L84 Corns and callosities; A49.02 Methicillin resistant Staphylococcus aureus infection, unspecified site
CPT/HCPCS: 87071; 87075; 87186; 87205

== ENCOUNTER 2022-11-21 19:36 | Inpatient (IN) | payer MEDICARE ==
[~2022-11-21] VITALS: Ht 170.2 cm; Wt 103.9 kg
[~2022-11-21 19:36] MED LIST changes: -LIDOCAINE VISC 2% SOLN 15 ML UDC ONE; -MINERAL OIL/PETROLAT/GLYCERI 2OZ CRM ONE; -MUPIROCIN 2% OINT 22 GM TUBE ONE; -TRIAMCINOLONE ACET 0.1% CREAM 15 GM TUBE ONE
[2022-11-21 20:57] LABS: BASOPHILS % 0.2 % (0.0-1.0); EOSINOPHILS # (AUTO) 0.1 (0.0-0.4); EOSINOPHILS % 1.2 % (0.0-6.0); HEMATOCRIT 25.7 % (34.2-44.1); HEMOGLOBIN 7.9 g/dL (12.0-16.0); LYMPHOCYTES # (AUTO) 0.7 (1.0-3.2); LYMPHOCYTES % 17.1 % (18.0-39.1); MEAN CORPUSCULAR HGB CONC 30.7 g/dL (31-35); MEAN CORPUSCULAR VOLUME 94.5 fL (81-99); MONOCYTES # (AUTO) 0.3 (0.2-0.8); MONOCYTES % 7.1 % (4.4-11.3); NEUTROPHILS # (AUTO) 3.1 (2.1-6.9); NEUTROPHILS % 74.2 % (38.7-80.0); PLATELET COUNT 124 x10e3/uL (140-360); RED BLOOD COUNT 2.72 x10e6/uL (3.6-5.1); RED CELL DISTRIBUTION WIDTH 15.9 % (11.7-14.4)
[2022-11-21 21:14] LABS: ALBUMIN 2.9 g/dL (3.5-5.0); ALBUMIN/GLOBULIN RATIO 0.7 (0.8-2.0); ANION GAP 14.3 mmol/L (8-16); CALCIUM 9.4 mg/dL (8.4-10.2); CREATININE, SERUM 1.34 mg/dL (0.57-1.11); POTASSIUM 4.3 mmol/L (3.5-5.1)
[2022-11-21 21:20] LABS: CREATINE KINASE MB 6.1 ng/mL (0-5.0)
[2022-11-21 21:58] LABS: CLARITY,URINE CLOUDY (CLEAR); COLOR,URINE YELLOW (YELLOW); KETONES,URINE TRACE (NEGATIVE); LEUKOCYTE ESTERASE ,URINE SMALL (NEGATIVE); NITRITE,URINE NEGATIVE (NEGATIVE); PROTEIN,URINE DIPSTICK >=300 (NEGATIVE); URINE UROBILINOGEN 0.2 mg/dL (0.2 - 1)
[2022-11-21 22:04] LABS: BACTERIA,URINE MODERATE /HPF; EPITHELIAL CELLS,URINE MANY /LPF; WBC,URINE (MAN) 21-50 /HPF (0-5)
[2022-11-21] MEDS ORDERED: ONDANSETRON HCL INJ 2MG/ML 2ML 2 MG/ML VIAL IV PRN (22:45)
[2022-11-21] MEDS ORDERED: ACETAMINOPHEN 325 MG TAB PO PRN (22:45)
[2022-11-21] MEDS ORDERED: DEXTROSE 50% SYRINGE 50 ML IV PRN (23:00)
[2022-11-21] MEDS: SODIUM CHLORIDE 0.9% 1000ML 1,000 ML IV SCH (23:30)
[2022-11-22] VITALS (7 sets, daily range): BP systolic 134–155; BP diastolic 55–84
[2022-11-22 05:41] LABS: BASOPHILS % 0.3 % (0.0-1.0); EOSINOPHILS # (AUTO) 0.1 (0.0-0.4); EOSINOPHILS % 2.6 % (0.0-6.0); HEMATOCRIT 24.3 % (34.2-44.1); HEMOGLOBIN 7.6 g/dL (12.0-16.0); LYMPHOCYTES # (AUTO) 0.7 (1.0-3.2); LYMPHOCYTES % 23.7 % (18.0-39.1); MEAN CORPUSCULAR HEMOGLOBIN 29.5 pg (28-32); MEAN CORPUSCULAR HGB CONC 31.3 g/dL (31-35); MEAN CORPUSCULAR VOLUME 94.2 fL (81-99); MONOCYTES # (AUTO) 0.2 (0.2-0.8); MONOCYTES % 7.9 % (4.4-11.3); NEUTROPHILS % 65.5 % (38.7-80.0); PLATELET COUNT 113 x10e3/uL (140-360); RED BLOOD COUNT 2.58 x10e6/uL (3.6-5.1); RED CELL DISTRIBUTION WIDTH 15.6 % (11.7-14.4)
[2022-11-22 06:26] LABS: ALBUMIN 2.5 g/dL (3.5-5.0); ALBUMIN/GLOBULIN RATIO 0.7 (0.8-2.0); ANION GAP 12.2 mmol/L (8-16); CREATININE, SERUM 1.21 mg/dL (0.57-1.11); POTASSIUM 4.2 mmol/L (3.5-5.1)
[2022-11-22] MEDS ORDERED: INSULIN REGULAR, HUMAN 100 UNIT/1 ML SQ SCH (07:30)
[2022-11-22] MEDS ORDERED: ATORVASTATIN CA20 MG PO (09:08)
[2022-11-22] MEDS ORDERED: LEVOFLOXACIN250 MG PO (09:08)
[2022-11-22] MEDS: AMLODIPINE BESYLATE 5 MG TAB PO SCH (10:04)
[2022-11-22] MEDS: ASPIRIN 81 MG ENTERIC COATED PO SCH (10:04)
[2022-11-22] MEDS: SODIUM CHLORIDE 0.9% 1000ML 1,000 ML IV SCH ×2 (10:04→21:07)
[2022-11-22] MEDS: INSULIN LISPRO 100 UNIT/1 ML 3ML VIAL SQ SCH ×3 (11:30→21:00)
[2022-11-22] MEDS: INSULIN NPH SQ SCH ×2 (12:00→16:08)
[2022-11-22] MEDS: INSULIN REGULAR SQ SCH ×2 (12:00→16:08)
[2022-11-22] MEDS: [UNRECOGNIZED DRUG - OTHER] SQ SCH ×2 (12:00→16:08)
[2022-11-22] MEDS ORDERED: NITROFURANTOIN MACROCRYSTALS 100 MG CAP PO SCH (17:00)
[2022-11-22] MEDS: ATORVASTATIN 40 MG TAB PO SCH (21:07)
[2022-11-23] VITALS (8 sets, daily range): BP systolic 139–170; BP diastolic 53–75
[2022-11-23] MEDS: SODIUM CHLORIDE 0.9% 1000ML 1,000 ML IV SCH ×3 (04:36→22:42)
[2022-11-23 04:56] LABS: BASOPHILS % 0.3 % (0.0-1.0); EOSINOPHILS # (AUTO) 0.1 (0.0-0.4); EOSINOPHILS % 2.4 % (0.0-6.0); HEMATOCRIT 24.1 % (34.2-44.1); HEMOGLOBIN 7.5 g/dL (12.0-16.0); LYMPHOCYTES # (AUTO) 0.9 (1.0-3.2); LYMPHOCYTES % 22.9 % (18.0-39.1); MEAN CORPUSCULAR HEMOGLOBIN 29.3 pg (28-32); MEAN CORPUSCULAR HGB CONC 31.1 g/dL (31-35); MEAN CORPUSCULAR VOLUME 94.1 fL (81-99); MONOCYTES # (AUTO) 0.4 (0.2-0.8); MONOCYTES % 9.9 % (4.4-11.3); NEUTROPHILS # (AUTO) 2.4 (2.1-6.9); NEUTROPHILS % 64.2 % (38.7-80.0); PLATELET COUNT 113 x10e3/uL (140-360); RED BLOOD COUNT 2.56 x10e6/uL (3.6-5.1); RED CELL DISTRIBUTION WIDTH 15.9 % (11.7-14.4)
[2022-11-23 05:16] LABS: ANION GAP 12.4 mmol/L (8-16); CALCIUM 8.9 mg/dL (8.4-10.2); CREATININE, SERUM 1.34 mg/dL (0.57-1.11); POTASSIUM 4.4 mmol/L (3.5-5.1)
[2022-11-23 05:17] LABS: ALBUMIN 2.4 g/dL (3.5-5.0); ALBUMIN/GLOBULIN RATIO 0.6 (0.8-2.0)
[2022-11-23] MEDS: INSULIN LISPRO 100 UNIT/1 ML 3ML VIAL SQ SCH ×4 (07:30→20:49)
[2022-11-23] MEDS: INSULIN REGULAR SQ SCH ×3 (08:00→17:00)
[2022-11-23] MEDS: INSULIN NPH SQ SCH ×3 (08:00→17:00)
[2022-11-23] MEDS: [UNRECOGNIZED DRUG - OTHER] SQ SCH ×3 (08:00→17:00)
[2022-11-23] MEDS: TRIAMCINOLONE 0.1% OINTMENT 15 GM TUBE TP SCH (09:00)
[2022-11-23] MEDS: ASPIRIN 81 MG ENTERIC COATED PO SCH (10:06)
[2022-11-23] MEDS: AMLODIPINE BESYLATE 5 MG TAB PO SCH (10:06)
[2022-11-23] MEDS ORDERED: HYDRALAZINE HCL 20 MG/ML VIAL IV PRN (21:15)
[2022-11-23] MEDS: ATORVASTATIN 40 MG TAB PO SCH (21:18)
[2022-11-24] VITALS (10 sets, daily range): BP systolic 148–169; BP diastolic 59–74
[2022-11-24 05:19] LABS: BASOPHILS % 0.2 % (0.0-1.0); EOSINOPHILS # (AUTO) 0.2 (0.0-0.4); EOSINOPHILS % 3.1 % (0.0-6.0); HEMATOCRIT 25.4 % (34.2-44.1); HEMOGLOBIN 7.7 g/dL (12.0-16.0); LYMPHOCYTES # (AUTO) 0.8 (1.0-3.2); LYMPHOCYTES % 15.6 % (18.0-39.1); MEAN CORPUSCULAR HEMOGLOBIN 29.1 pg (28-32); MEAN CORPUSCULAR HGB CONC 30.3 g/dL (31-35); MEAN CORPUSCULAR VOLUME 95.8 fL (81-99); MONOCYTES # (AUTO) 0.4 (0.2-0.8); NEUTROPHILS # (AUTO) 3.7 (2.1-6.9); NEUTROPHILS % 72.7 % (38.7-80.0); PLATELET COUNT 117 x10e3/uL (140-360); RED BLOOD COUNT 2.65 x10e6/uL (3.6-5.1); RED CELL DISTRIBUTION WIDTH 15.7 % (11.7-14.4)
[2022-11-24 05:39] LABS: ALBUMIN 2.4 g/dL (3.5-5.0); ALBUMIN/GLOBULIN RATIO 0.6 (0.8-2.0); ANION GAP 10.4 mmol/L (8-16); CALCIUM 8.6 mg/dL (8.4-10.2); CREATININE, SERUM 1.31 mg/dL (0.57-1.11); POTASSIUM 4.4 mmol/L (3.5-5.1)
[2022-11-24] MEDS: INSULIN LISPRO 100 UNIT/1 ML 3ML VIAL SQ SCH ×4 (07:30→21:06)
[2022-11-24] MEDS: INSULIN NPH SQ SCH ×3 (08:00→16:49)
[2022-11-24] MEDS: INSULIN REGULAR SQ SCH ×3 (08:00→16:49)
[2022-11-24] MEDS: [UNRECOGNIZED DRUG - OTHER] SQ SCH ×3 (08:00→16:49)
[2022-11-24] MEDS: TRIAMCINOLONE 0.1% OINTMENT 15 GM TUBE TP SCH (09:00)
[2022-11-24] MEDS: ASPIRIN 81 MG ENTERIC COATED PO SCH (09:54)
[2022-11-24] MEDS: AMLODIPINE BESYLATE 5 MG TAB PO SCH (09:54)
[2022-11-24] MEDS: SODIUM CHLORIDE 0.9% 1000ML 1,000 ML IV SCH ×2 (10:03→21:10)
[2022-11-24] MEDS: ATORVASTATIN 40 MG TAB PO SCH (21:06)
[2022-11-25] VITALS (8 sets, daily range): BP systolic 131–167; BP diastolic 57–76
[2022-11-25] MEDS: SODIUM CHLORIDE 0.9% 1000ML 1,000 ML IV SCH ×2 (06:24→19:13)
[2022-11-25] MEDS: INSULIN LISPRO 100 UNIT/1 ML 3ML VIAL SQ SCH ×4 (07:30→21:00)
[2022-11-25] MEDS: INSULIN NPH SQ SCH ×3 (08:00→17:00)
[2022-11-25] MEDS: [UNRECOGNIZED DRUG - OTHER] SQ SCH ×3 (08:00→17:00)
[2022-11-25] MEDS: INSULIN REGULAR SQ SCH ×3 (08:00→17:00)
[2022-11-25] MEDS: AMLODIPINE BESYLATE 5 MG TAB PO SCH (08:43)
[2022-11-25] MEDS: ASPIRIN 81 MG ENTERIC COATED PO SCH (08:43)
[2022-11-25] MEDS: TRIAMCINOLONE 0.1% OINTMENT 15 GM TUBE TP SCH (09:00)
[2022-11-25] MEDS: ATORVASTATIN 40 MG TAB PO SCH (20:59)
[2022-11-26] VITALS (8 sets, daily range): BP systolic 123–164; BP diastolic 58–95
[2022-11-26 05:42] LABS: BASOPHILS % 0.2 % (0.0-1.0); EOSINOPHILS # (AUTO) 0.2 (0.0-0.4); EOSINOPHILS % 3.5 % (0.0-6.0); HEMATOCRIT 24.6 % (34.2-44.1); HEMOGLOBIN 7.7 g/dL (12.0-16.0); LYMPHOCYTES # (AUTO) 0.7 (1.0-3.2); LYMPHOCYTES % 15.4 % (18.0-39.1); MEAN CORPUSCULAR HEMOGLOBIN 29.2 pg (28-32); MEAN CORPUSCULAR HGB CONC 31.3 g/dL (31-35); MEAN CORPUSCULAR VOLUME 93.2 fL (81-99); MONOCYTES # (AUTO) 0.4 (0.2-0.8); MONOCYTES % 9.1 % (4.4-11.3); NEUTROPHILS # (AUTO) 3.1 (2.1-6.9); NEUTROPHILS % 71.6 % (38.7-80.0); PLATELET COUNT 108 x10e3/uL (140-360); RED BLOOD COUNT 2.64 x10e6/uL (3.6-5.1); RED CELL DISTRIBUTION WIDTH 15.2 % (11.7-14.4)
[2022-11-26] MEDS: SODIUM CHLORIDE 0.9% 1000ML 1,000 ML IV SCH ×2 (06:03→11:54)
[2022-11-26 06:16] LABS: ALBUMIN/GLOBULIN RATIO 0.5 (0.8-2.0); ANION GAP 11.9 mmol/L (8-16); CALCIUM 8.5 mg/dL (8.4-10.2); CREATININE, SERUM 1.25 mg/dL (0.57-1.11); POTASSIUM 4.9 mmol/L (3.5-5.1)
[2022-11-26] MEDS: INSULIN LISPRO 100 UNIT/1 ML 3ML VIAL SQ SCH ×4 (07:30→21:25)
[2022-11-26] MEDS: [UNRECOGNIZED DRUG - OTHER] SQ SCH ×3 (08:00→16:31)
[2022-11-26] MEDS: INSULIN NPH SQ SCH ×3 (08:00→16:31)
[2022-11-26] MEDS: INSULIN REGULAR SQ SCH ×3 (08:00→16:31)
[2022-11-26] MEDS: TRIAMCINOLONE 0.1% OINTMENT 15 GM TUBE TP SCH (08:31)
[2022-11-26] MEDS: ASPIRIN 81 MG ENTERIC COATED PO SCH (08:31)
[2022-11-26] MEDS: AMLODIPINE BESYLATE 5 MG TAB PO SCH (08:31)
[2022-11-26] MEDS ORDERED: ONDANSETRON HCL 4 MG ORAL DISINTEGRATING TAB PO PRN (11:45)
[2022-11-26] MEDS: ATORVASTATIN 40 MG TAB PO SCH (21:19)
[2022-11-27] VITALS (8 sets, daily range): BP systolic 147–163; BP diastolic 53–65
[2022-11-27] MEDS: SODIUM CHLORIDE 0.9% 1000ML 1,000 ML IV SCH ×3 (00:20→18:45)
[2022-11-27] MEDS: INSULIN LISPRO 100 UNIT/1 ML 3ML VIAL SQ SCH ×4 (07:30→21:14)
[2022-11-27] MEDS: INSULIN NPH SQ SCH ×3 (08:00→17:00)
[2022-11-27] MEDS: INSULIN REGULAR SQ SCH ×3 (08:00→17:00)
[2022-11-27] MEDS: [UNRECOGNIZED DRUG - OTHER] SQ SCH ×3 (08:00→17:00)
[2022-11-27] MEDS: ASPIRIN 81 MG ENTERIC COATED PO SCH (09:12)
[2022-11-27] MEDS: TRIAMCINOLONE 0.1% OINTMENT 15 GM TUBE TP SCH (09:17)
[2022-11-27] MEDS: AMLODIPINE BESYLATE 5 MG TAB PO SCH (09:17)
[2022-11-27] MEDS: ATORVASTATIN 40 MG TAB PO SCH (21:06)
[2022-11-28] VITALS (7 sets, daily range): BP systolic 130–156; BP diastolic 56–95
[2022-11-28] MEDS: SODIUM CHLORIDE 0.9% 1000ML 1,000 ML IV SCH ×2 (05:11→14:45)
[2022-11-28] MEDS: INSULIN LISPRO 100 UNIT/1 ML 3ML VIAL SQ SCH ×3 (07:30→16:30)
[2022-11-28] MEDS: [UNRECOGNIZED DRUG - OTHER] SQ SCH ×3 (07:34→17:00)
[2022-11-28] MEDS: INSULIN REGULAR SQ SCH ×3 (07:34→17:00)
[2022-11-28] MEDS: INSULIN NPH SQ SCH ×3 (07:34→17:00)
[2022-11-28] MEDS: ASPIRIN 81 MG ENTERIC COATED PO SCH (09:12)
[2022-11-28] MEDS: AMLODIPINE BESYLATE 5 MG TAB PO SCH (09:13)
[2022-11-28] MEDS: TRIAMCINOLONE 0.1% OINTMENT 15 GM TUBE TP SCH (09:13)
== END 2022-11-28 20:35 | disposition home or self-care (01) | DRG 689 ==
LOC: ER 19:40 → ERHOLD 22:44 → MED/SURG2 11-22 10:36
PROVIDERS: ADMIT Family Medicine; ATTEND Family Medicine
DX: N39.0 Urinary tract infection, site not specified (principal); G93.41 Metabolic encephalopathy; Z16.12 Extended spectrum beta lactamase (ESBL) resistance; E11.22 Type 2 diabetes mellitus with diabetic chronic kidney disease; N18.9 Chronic kidney disease, unspecified; E66.01 Morbid (severe) obesity due to excess calories; I12.9 Hypertensive chronic kidney disease with stage 1 through stage 4 chronic kidney disease, or unspecified chronic kidney disease; G89.29 Other chronic pain; M54.50 Low back pain, unspecified; E78.5 Hyperlipidemia, unspecified; I25.10 Atherosclerotic heart disease of native coronary artery without angina pectoris; D50.9 Iron deficiency anemia, unspecified; M19.90 Unspecified osteoarthritis, unspecified site; Z20.822 Contact with and (suspected) exposure to COVID-19; Z85.42 Personal history of malignant neoplasm of other parts of uterus; Z92.3 Personal history of irradiation; Z95.2 Presence of prosthetic heart valve; Z88.0 Allergy status to penicillin; Z79.82 Long term (current) use of aspirin; Z68.35 Body mass index [BMI] 35.0-35.9, adult
CPT/HCPCS: 36415; 70450; 80053; 81001; 82550; 82553; 82948; 83735; 84484; 85025; 87040; 87086; 87186; 93005; 96361; 96372; 99252; 99285; J2185; J7030

== ENCOUNTER 2022-12-02 11:15 | Emergency (ER) | payer MEDICARE ==
[~2022-12-02] VITALS: Ht 170.2 cm; Wt 103.9 kg
[~2022-12-02 11:15] MED LIST changes: +ATORVASTATIN CA20 MG PO; +LEVOFLOXACIN250 MG PO
[2022-12-02] MEDS ORDERED: MEROPENEM 1 GM in SODIUM CHLORIDE 0.9% 100 ML IV ONE (13:45)
[2022-12-02 14:01] LABS: CLARITY,URINE CLEAR (CLEAR); COLOR,URINE YELLOW (YELLOW)
[2022-12-02 14:02] LABS: KETONES,URINE NEGATIVE (NEGATIVE); LEUKOCYTE ESTERASE ,URINE NEGATIVE (NEGATIVE); NITRITE,URINE NEGATIVE (NEGATIVE); PROTEIN,URINE DIPSTICK >=300 (NEGATIVE); URINE UROBILINOGEN 0.2 mg/dL (0.2 - 1)
[2022-12-02 14:14] LABS: BACTERIA,URINE FEW /HPF; EPITHELIAL CELLS,URINE FEW /LPF; WBC,URINE (MAN) 21-50 /HPF (0-5)
[2022-12-02 14:36] LABS: BASOPHILS % 0.4 % (0.0-1.0); EOSINOPHILS # (AUTO) 0.1 (0.0-0.4); EOSINOPHILS % 1.6 % (0.0-6.0); HEMATOCRIT 26.7 % (34.2-44.1); HEMOGLOBIN 8.1 g/dL (12.0-16.0); LYMPHOCYTES # (AUTO) 0.7 (1.0-3.2); LYMPHOCYTES % 15.4 % (18.0-39.1); MEAN CORPUSCULAR HEMOGLOBIN 28.2 pg (28-32); MEAN CORPUSCULAR HGB CONC 30.3 g/dL (31-35); MONOCYTES # (AUTO) 0.3 (0.2-0.8); MONOCYTES % 7.6 % (4.4-11.3); NEUTROPHILS # (AUTO) 3.4 (2.1-6.9); NEUTROPHILS % 74.8 % (38.7-80.0); PLATELET COUNT 184 x10e3/uL (140-360); RED BLOOD COUNT 2.87 x10e6/uL (3.6-5.1); RED CELL DISTRIBUTION WIDTH 15.1 % (11.7-14.4)
[2022-12-02 14:50] LABS: ALBUMIN 2.8 g/dL (3.5-5.0); ALBUMIN/GLOBULIN RATIO 0.6 (0.8-2.0); ANION GAP 10.4 mmol/L (8-16); CALCIUM 9.3 mg/dL (8.4-10.2); CREATININE, SERUM 1.11 mg/dL (0.57-1.11); POTASSIUM 4.4 mmol/L (3.5-5.1)
[2022-12-02] MEDS ORDERED: ACETAMINOPHEN 325 MG TAB ONE (16:07)
[2022-12-02] MEDS ORDERED: ACETAMINOPHEN 325 MG TAB PO ONE (16:15)
[2022-12-02 17:30] VITALS: O2SAT 100
== END 2022-12-02 19:20 | disposition other institution (70) ==
LOC: ER 11:19
DX: R53.1 Weakness (principal); U07.1 COVID-19; N39.0 Urinary tract infection, site not specified; B37.89 Other sites of candidiasis; L97.429 Non-pressure chronic ulcer of left heel and midfoot with unspecified severity; I89.0 Lymphedema, not elsewhere classified; Z74.09 Other reduced mobility; Z85.42 Personal history of malignant neoplasm of other parts of uterus
CPT/HCPCS: 0223U; 36415; 71045; 80053; 81001; 85025; 87086; 93005; 99284; J2185; J7050; 51700

== ENCOUNTER 2022-12-18 08:30 | Inpatient (IN) | payer MEDICARE ==
[~2022-12-18] VITALS: Ht 170.2 cm; Wt 103.9 kg
[2022-12-18 09:03] LABS: BASOPHILS % 0.2 % (0.0-1.0); EOSINOPHILS # (AUTO) 0.1 (0.0-0.4); EOSINOPHILS % 1.2 % (0.0-6.0); HEMATOCRIT 30.5 % (34.2-44.1); HEMOGLOBIN 9.4 g/dL (12.0-16.0); LYMPHOCYTES # (AUTO) 0.9 (1.0-3.2); LYMPHOCYTES % 16.9 % (18.0-39.1); MEAN CORPUSCULAR HEMOGLOBIN 28.7 pg (28-32); MEAN CORPUSCULAR HGB CONC 30.8 g/dL (31-35); MONOCYTES # (AUTO) 0.3 (0.2-0.8); MONOCYTES % 5.1 % (4.4-11.3); NEUTROPHILS # (AUTO) 3.9 (2.1-6.9); NEUTROPHILS % 76.2 % (38.7-80.0); PLATELET COUNT 127 x10e3/uL (140-360); RED BLOOD COUNT 3.28 x10e6/uL (3.6-5.1); RED CELL DISTRIBUTION WIDTH 16.4 % (11.7-14.4)
[2022-12-18 09:18] LABS: CLARITY,URINE CLEAR (CLEAR); COLOR,URINE YELLOW (YELLOW); KETONES,URINE NEGATIVE (NEGATIVE); LEUKOCYTE ESTERASE ,URINE NEGATIVE (NEGATIVE); NITRITE,URINE NEGATIVE (NEGATIVE); PROTEIN,URINE DIPSTICK >=300 (NEGATIVE); URINE UROBILINOGEN 0.2 mg/dL (0.2 - 1)
[2022-12-18 09:22] LABS: ALBUMIN/GLOBULIN RATIO 0.7 (0.8-2.0); ANION GAP 14.1 mmol/L (8-16); CALCIUM 9.5 mg/dL (8.4-10.2); POTASSIUM 5.1 mmol/L (3.5-5.1)
[2022-12-18 09:24] LABS: WBC,URINE (MAN) 0-5 /HPF (0-5)
[2022-12-18 09:25] LABS: BACTERIA,URINE RARE /HPF; EPITHELIAL CELLS,URINE RARE /LPF
[2022-12-18] MEDS ORDERED: DEXTROSE 50% SYRINGE 50 ML IV ONE (09:27)
[2022-12-18] MEDS ORDERED: DEXTROSE 50% SYRINGE 50 ML IV STA (09:31)
[2022-12-18 09:42] LABS: THYROID STIMULATING HORMONE 9.189 uIU/mL (0.350-4.940)
[2022-12-18] MEDS ORDERED: LEVOTHYROXINE SODIUM 100 MCG/VIAL IV ONE (10:00)
[2022-12-18 10:11] LABS: FREE THYROXINE INDEX 2.2939 (1.4-3.8)
[2022-12-18 11:08] VITALS: PULSE 58; RESP 18; O2SAT 97
[2022-12-18 17:30] VITALS: BP 154/62; PULSE 72; RESP 18; TEMP 97.8; O2SAT 98
[2022-12-18 18:08] VITALS: BP 161/65; PULSE 84; RESP 18; TEMP 98.2; O2SAT 99
[2022-12-18 18:14] VITALS: BP 154/62; PULSE 72; RESP 18; TEMP 98.7; O2SAT 98
[2022-12-18] MEDS ORDERED: DEXTROSE 50% SYRINGE 50 ML IV PRN (19:00)
[2022-12-18] MEDS: INSULIN LISPRO 100 UNIT/1 ML 3ML VIAL SQ SCH (19:55)
[2022-12-18 20:31] VITALS: BP 139/58; PULSE 71; RESP 16; TEMP 97.9; O2SAT 93
[2022-12-18 21:00] VITALS: BP 139/58; PULSE 71; RESP 16; TEMP 97.9; O2SAT 95
[2022-12-18] MEDS: ATORVASTATIN 40 MG TAB PO SCH (21:55)
[2022-12-19] VITALS (7 sets, daily range): BP systolic 136–162; BP diastolic 53–79; PULSE 52–63; RESP 15–17; TEMP 97.5–98.3; O2SAT 98–99
[2022-12-19 05:48] LABS: BASOPHILS % 0.2 % (0.0-1.0); EOSINOPHILS # (AUTO) 0.1 (0.0-0.4); EOSINOPHILS % 1.3 % (0.0-6.0); HEMATOCRIT 24.1 % (34.2-44.1); HEMOGLOBIN 7.4 g/dL (12.0-16.0); LYMPHOCYTES # (AUTO) 0.9 (1.0-3.2); LYMPHOCYTES % 18.8 % (18.0-39.1); MEAN CORPUSCULAR HEMOGLOBIN 28.7 pg (28-32); MEAN CORPUSCULAR HGB CONC 30.7 g/dL (31-35); MEAN CORPUSCULAR VOLUME 93.4 fL (81-99); MONOCYTES # (AUTO) 0.4 (0.2-0.8); MONOCYTES % 7.3 % (4.4-11.3); NEUTROPHILS # (AUTO) 3.5 (2.1-6.9); NEUTROPHILS % 72.2 % (38.7-80.0); PLATELET COUNT 121 x10e3/uL (140-360); RED BLOOD COUNT 2.58 x10e6/uL (3.6-5.1); RED CELL DISTRIBUTION WIDTH 16.8 % (11.7-14.4)
[2022-12-19 06:06] LABS: ANION GAP 10.3 mmol/L (8-16); CALCIUM 8.7 mg/dL (8.4-10.2); CREATININE, SERUM 1.35 mg/dL (0.57-1.11); POTASSIUM 5.3 mmol/L (3.5-5.1)
[2022-12-19] MEDS ORDERED: LEVOTHYROXINE50 MCG PO (06:32)
[2022-12-19] MEDS ORDERED: ASPIRIN325 MG PO (06:32)
[2022-12-19] MEDS ORDERED: DECUBI VITE CA1 EACH PO (06:32)
[2022-12-19] MEDS ORDERED: TYLENOL325 MG PO (06:32)
[2022-12-19] MEDS ORDERED: FOSFOMYCIN TROME3 GM PO (06:32)
[2022-12-19] MEDS ORDERED: NYSTATIN1 EAC8 TOP (06:32)
[2022-12-19] MEDS ORDERED: FUROSEMIDE40 MG PO (06:32)
[2022-12-19] MEDS ORDERED: DOCUSATE SODIU100 MG PO (06:32)
[2022-12-19] MEDS: INSULIN LISPRO 100 UNIT/1 ML 3ML VIAL SQ SCH ×4 (07:30→20:38)
[2022-12-19] MEDS: HUMULIN 70/30 VIAL SQ SCH ×3 (08:00→16:19)
[2022-12-19] MEDS: NYSTATIN 100,000 UNITS/GM CRM 30GM TUBE TOP SCH ×2 (08:40→17:18)
[2022-12-19] MEDS: AMLODIPINE BESYLATE 5 MG TAB PO SCH (08:40)
[2022-12-19] MEDS ORDERED: ASPIRIN 81 MG ENTERIC COATED PO SCH (09:00)
[2022-12-19 11:06] LABS: POTASSIUM 5.3 mmol/L (3.5-5.1)
[2022-12-19 11:34] LABS: FERRITIN 371.8 ng/mL (4.63-204.00)
[2022-12-19] MEDS ORDERED: SODIUM CHLORIDE 0.9% 250ML 250 ML IV ONE (13:15)
[2022-12-19] MEDS ORDERED: SOD POLYSTYRENE SULFONATE SUSP 15 GM/60 ML BTL PO ONE (13:45)
[2022-12-19 17:22] LABS: HEMATOCRIT 27.1 % (34.2-44.1); HEMOGLOBIN 8.3 g/dL (12.0-16.0)
[2022-12-19] MEDS: ATORVASTATIN 40 MG TAB PO SCH (21:35)
[2022-12-20 00:50] VITALS: BP 159/56; PULSE 54; RESP 18; TEMP 97.5; O2SAT 99
[2022-12-20 04:00] VITALS: BP 155/59; PULSE 49; RESP 17; TEMP 98.3; O2SAT 100
[2022-12-20] MEDS: INSULIN LISPRO 100 UNIT/1 ML 3ML VIAL SQ SCH ×2 (07:30→11:30)
[2022-12-20 08:00] VITALS: BP 155/50; PULSE 52; RESP 16; TEMP 97.5; O2SAT 97
[2022-12-20] MEDS: HUMULIN 70/30 VIAL SQ SCH ×2 (08:00→12:00)
[2022-12-20 08:09] VITALS: BP 155/50; PULSE 52; RESP 16; TEMP 97.5; O2SAT 97
[2022-12-20] MEDS ORDERED: BALSAM PERU/CASTOR OIL 60 GM OINT...G. TP SCH (09:00)
[2022-12-20] MEDS: AMLODIPINE BESYLATE 5 MG TAB PO SCH (09:00)
[2022-12-20] MEDS: NYSTATIN 100,000 UNITS/GM CRM 30GM TUBE TOP SCH (09:01)
[2022-12-20 12:15] VITALS: BP 152/58; PULSE 53; RESP 16; TEMP 97.5; O2SAT 97
== END 2022-12-20 14:08 | DRG 639 ==
LOC: ER 08:37 → ERHOLD 10:53 → MED/SURG2 17:33 → OBSVTOIN 12-19 16:21
PROVIDERS: ADMIT Family Medicine; ATTEND Family Medicine
DX: E11.649 Type 2 diabetes mellitus with hypoglycemia without coma (principal); E11.65 Type 2 diabetes mellitus with hyperglycemia; T68.XXXA Hypothermia, initial encounter; E11.22 Type 2 diabetes mellitus with diabetic chronic kidney disease; I12.9 Hypertensive chronic kidney disease with stage 1 through stage 4 chronic kidney disease, or unspecified chronic kidney disease; N18.9 Chronic kidney disease, unspecified; B37.2 Candidiasis of skin and nail; Z80.49 Family history of malignant neoplasm of other genital organs; Z95.2 Presence of prosthetic heart valve; Z79.4 Long term (current) use of insulin
CPT/HCPCS: 0223U; 36415; 51700; 71045; 80048; 80053; 81001; 82270; 82728; 82948; 83036; 83540; 83605; 84132; 84436; 84443; 84479; 84484; 85014; 85018; 85025; 86850; 86900; 86920; 87040; 93005; 94799; 99252; 99284; G0378; J7799

== ENCOUNTER 2023-05-11 20:48 | Inpatient (IN) | payer MEDICARE ==
[~2023-05-11] VITALS: Ht 170.2 cm; Wt 104.3 kg
[~2023-05-11 20:48] MED LIST changes: +ASPIRIN325 MG PO; +CEFTRIAXON2 GM/50 ML IVP; +DECUBI VITE CA1 EACH PO; +DOCUSATE SODIU100 MG PO; +FOSFOMYCIN TROME3 GM PO; +FUROSEMIDE40 MG PO; +LANTUS 3ML100 UNITS/; +LEVOTHYROXINE50 MCG PO; +NYSTATIN1 EAC8 TOP; +TYLENOL325 MG PO; +VIT C-ROSE HIP500 MG
[2023-05-11] MEDS ORDERED: SODIUM CHLORIDE 0.9% 1000ML 1,000 ML IV STA (20:53)
[2023-05-11 21:22] LABS: BASOPHILS % 0.1 % (0.0-1.0); EOSINOPHILS % 0.4 % (0.0-6.0); HEMOGLOBIN 6.9 g/dL (12.0-16.0); LYMPHOCYTES # (AUTO) 0.5 (1.0-3.2); LYMPHOCYTES % 5.2 % (18.0-39.1); MEAN CORPUSCULAR HEMOGLOBIN 27.6 pg (28-32); MEAN CORPUSCULAR HGB CONC 31.2 g/dL (31-35); MEAN CORPUSCULAR VOLUME 88.4 fL (81-99); MONOCYTES # (AUTO) 0.7 (0.2-0.8); MONOCYTES % 7.9 % (4.4-11.3); NEUTROPHILS # (AUTO) 7.9 (2.1-6.9); NEUTROPHILS % 85.5 % (38.7-80.0); PLATELET COUNT 104 x10e3/uL (140-360); RED CELL DISTRIBUTION WIDTH 18.4 % (11.7-14.4); WHITE BLOOD COUNT 9.24 x10e3/uL (4.8-10.8)
[2023-05-11 21:25] LABS: HEMATOCRIT 22.1 % (34.2-44.1)
[2023-05-11 21:42] LABS: ALBUMIN 2.1 g/dL (3.5-5.0); ALBUMIN/GLOBULIN RATIO 0.5 (0.8-2.0); ANION GAP 11.4 mmol/L (8-16); CALCIUM 8.6 mg/dL (8.4-10.2); CREATININE, SERUM 2.01 mg/dL (0.57-1.11); POTASSIUM 5.4 mmol/L (3.5-5.1)
[2023-05-11 21:44] LABS: CLARITY,URINE TURBID (CLEAR); COLOR,URINE YELLOW (YELLOW); LEUKOCYTE ESTERASE ,URINE LARGE (NEGATIVE); NITRITE,URINE NEGATIVE (NEGATIVE); PROTEIN,URINE DIPSTICK >=300 (NEGATIVE)
[2023-05-11 21:45] LABS: KETONES,URINE NEGATIVE (NEGATIVE); URINE UROBILINOGEN 0.2 mg/dL (0.2 - 1)
[2023-05-11 21:56] LABS: RBC,URINE 21-50 /HPF (0-5); WBC,URINE (MAN) >50 /HPF (0-5)
[2023-05-11 21:57] LABS: BACTERIA,URINE MODERATE /HPF; EPITHELIAL CELLS,URINE FEW /LPF; YEAST,URINE MODERATE
[2023-05-11] MEDS ORDERED: SODIUM BICARBONATE 8.4% INJ 50 ML SYR IV STA (22:03)
[2023-05-11] MEDS ORDERED: ALBUTEROL SULF 0.083% NEB SOLN 3 ML NEB NEB STA (22:03)
[2023-05-11] MEDS ORDERED: CALCIUM GLUCONATE 10% INJ 0.465 MEQ/ML VIAL IV STA (22:03)
[2023-05-11] MEDS ORDERED: INSULIN REGULAR, HUMAN 100 UNIT/1 ML ONE (22:10)
[2023-05-11] MEDS ORDERED: CALCIUM GLUC 1 G/50 ML NACL 50 ML IV ONE ×2 (22:10→22:30)
[2023-05-11] MEDS ORDERED: FUROSEMIDE INJ 10 MG/ML 2 ML VIAL ONE (22:13)
[2023-05-11] MEDS ORDERED: FUROSEMIDE INJ 10 MG/ML 4 ML VIAL ONE (22:13)
[2023-05-11] MEDS ORDERED: FUROSEMIDE INJ 10 MG/ML 10 ML VIAL IV ONE (22:15)
[2023-05-11] MEDS ORDERED: INSULIN REGULAR, HUMAN 100 UNIT/1 ML IV ONE (22:15)
[2023-05-11] MEDS ORDERED: DEXTROSE 50% SYRINGE 50 ML IV ONE (22:15)
[2023-05-11] MEDS ORDERED: SODIUM BICARBONATE 8.4% 50 ML VIAL IV STA (22:27)
[2023-05-11 22:47] VITALS: PULSE 80; RESP 14; O2SAT 98
[2023-05-11] MEDS ORDERED: ONDANSETRON HCL INJ 2MG/ML 2ML 2 MG/ML VIAL IV PRN (23:15)
[2023-05-11] MEDS ORDERED: LEVOFLOXACIN 500MG/D5W 100ML 100 ML IV SCH (23:30)
[2023-05-12] VITALS (10 sets, daily range): BP systolic 138–155; BP diastolic 52–72; PULSE 66–81; RESP 14–21; TEMP 97.4–98; O2SAT 93–99
[2023-05-12 05:48] LABS: BASOPHILS % 0.2 % (0.0-1.0); EOSINOPHILS % 0.5 % (0.0-6.0); HEMATOCRIT 22.1 % (34.2-44.1); HEMOGLOBIN 6.7 g/dL (12.0-16.0); LYMPHOCYTES # (AUTO) 0.5 (1.0-3.2); LYMPHOCYTES % 5.5 % (18.0-39.1); MEAN CORPUSCULAR HEMOGLOBIN 27.7 pg (28-32); MEAN CORPUSCULAR HGB CONC 30.3 g/dL (31-35); MEAN CORPUSCULAR VOLUME 91.3 fL (81-99); MONOCYTES # (AUTO) 0.6 (0.2-0.8); MONOCYTES % 7.6 % (4.4-11.3); RED BLOOD COUNT 2.42 x10e6/uL (3.6-5.1); WHITE BLOOD COUNT 8.25 x10e3/uL (4.8-10.8)
[2023-05-12 05:50] LABS: PLATELET COUNT 99 x10e3/uL (140-360)
[2023-05-12 06:05] LABS: ALBUMIN/GLOBULIN RATIO 0.5 (0.8-2.0); ANION GAP 13.5 mmol/L (8-16); CALCIUM 8.6 mg/dL (8.4-10.2); CREATININE, SERUM 1.98 mg/dL (0.57-1.11); POTASSIUM 5.5 mmol/L (3.5-5.1)
[2023-05-12 06:08] LABS: INR 1.18; PROTHROMBIN TIME 15.7 seconds (11.9-14.5)
[2023-05-12] MEDS ORDERED: COREG6.25 MG PO (06:21)
[2023-05-12] MEDS ORDERED: FUROSEMIDE40 MG PO (06:25)
[2023-05-12] MEDS ORDERED: ONDANSETRON ODT4 MG PO (06:25)
[2023-05-12] MEDS ORDERED: LISPRO (06:27)
[2023-05-12] MEDS ORDERED: SODIUM CHLORIDE 0.9% 250ML 250 ML IV ONE (07:45)
[2023-05-12 08:49] LABS: PLATELET ESTIMATE MODERATELY DECREASED
[2023-05-12 08:50] LABS: PLATELET MORPHOLOGY COMMENT NORMAL; RBC MORPHOLOGY COMMENT NORMAL
[2023-05-12 19:34] LABS: HEMOGLOBIN 8.7 g/dL (12.0-16.0)
[2023-05-12] MEDS: Morphine 4mg INJECTION 4 MG/ML INJ IV PRN (20:26)
[2023-05-12] MEDS: LEVOFLOXACIN 250MG/D5W 50ML 50 ML IV SCH (22:12)
[2023-05-13] VITALS (11 sets, daily range): BP systolic 117–153; BP diastolic 58–75; PULSE 62–77; RESP 16–21; TEMP 97.8–98.7; O2SAT 89–99
[2023-05-13 13:34] LABS: ANION GAP 15.2 mmol/L (8-16); CALCIUM 8.6 mg/dL (8.4-10.2); CREATININE, SERUM 2.02 mg/dL (0.57-1.11)
[2023-05-13] MEDS ORDERED: ONDANSETRON HCL 4 MG ORAL DISINTEGRATING TAB PO PRN (13:45)
[2023-05-13 13:47] LABS: POTASSIUM 5.2 mmol/L (3.5-5.1)
[2023-05-13] MEDS: FUROSEMIDE 20 MG TAB PO SCH (16:21)
[2023-05-13] MEDS: COLLAGENASE 5 GM TUBE TP SCH (16:21)
[2023-05-13] MEDS: CARVEDILOL 3.125 MG TAB PO SCH (16:22)
[2023-05-13] MEDS: ATORVASTATIN 40 MG TAB PO SCH (20:36)
[2023-05-13] MEDS: LEVOFLOXACIN 250MG/D5W 50ML 50 ML IV SCH (23:07)
[2023-05-14] VITALS (10 sets, daily range): BP systolic 91–148; BP diastolic 52–72; PULSE 60–78; RESP 18–22; TEMP 98–98.5; O2SAT 91–97
[2023-05-14 05:07] LABS: BASOPHILS % 0.1 % (0.0-1.0); EOSINOPHILS # (AUTO) 0.1 (0.0-0.4); HEMOGLOBIN 7.2 g/dL (12.0-16.0); LYMPHOCYTES # (AUTO) 0.4 (1.0-3.2); LYMPHOCYTES % 5.5 % (18.0-39.1); MEAN CORPUSCULAR HEMOGLOBIN 28.1 pg (28-32); MEAN CORPUSCULAR HGB CONC 32.3 g/dL (31-35); MONOCYTES # (AUTO) 0.6 (0.2-0.8); MONOCYTES % 7.8 % (4.4-11.3); NEUTROPHILS # (AUTO) 6.7 (2.1-6.9); NEUTROPHILS % 84.7 % (38.7-80.0); PLATELET COUNT 90 x10e3/uL (140-360); RED BLOOD COUNT 2.56 x10e6/uL (3.6-5.1); RED CELL DISTRIBUTION WIDTH 19.5 % (11.7-14.4); WHITE BLOOD COUNT 7.87 x10e3/uL (4.8-10.8)
[2023-05-14 05:12] LABS: MEAN CORPUSCULAR VOLUME 87.1 fL (81-99)
[2023-05-14 05:13] LABS: HEMATOCRIT 22.3 % (34.2-44.1)
[2023-05-14] MEDS: LEVOTHYROXINE SODIUM 25 MCG TABLET PO SCH (05:15)
[2023-05-14] MEDS: FUROSEMIDE 20 MG TAB PO SCH ×2 (05:15→17:30)
[2023-05-14 05:16] LABS: ANION GAP 13.1 mmol/L (8-16); CALCIUM 8.5 mg/dL (8.4-10.2); CREATININE, SERUM 2.05 mg/dL (0.57-1.11); PHOSPHORUS 3.1 MG/DL (2.3-4.7); POTASSIUM 5.1 mmol/L (3.5-5.1)
[2023-05-14] MEDS: CARVEDILOL 3.125 MG TAB PO SCH ×2 (09:00→17:30)
[2023-05-14] MEDS: ASPIRIN 325 MG TAB PO SCH (09:19)
[2023-05-14] MEDS: COLLAGENASE 5 GM TUBE TP SCH (09:19)
[2023-05-14 09:32] LABS: EOSINOPHIL SMEAR,URINE NONE SEEN (NONE SEEN)
[2023-05-14 09:38] LABS: TOTAL PROTEIN, URINE 193.8 mg/dL (1-14)
[2023-05-14] MEDS ORDERED: EPOETIN ALFA-EPBX 10,000 UNIT/ML VIAL SC SCH (11:15)
[2023-05-14] MEDS: Morphine 4mg INJECTION 4 MG/ML INJ IV PRN (14:35)
[2023-05-14] MEDS: ATORVASTATIN 40 MG TAB PO SCH (20:56)
[2023-05-14] MEDS: LEVOFLOXACIN 250MG/D5W 50ML 50 ML IV SCH (23:10)
[2023-05-15] VITALS (9 sets, daily range): BP systolic 137–152; BP diastolic 51–74; PULSE 58–78; RESP 17–20; TEMP 97.6–98.9; O2SAT 93–99
[2023-05-15] MEDS: LEVOTHYROXINE SODIUM 25 MCG TABLET PO SCH (05:25)
[2023-05-15] MEDS: FUROSEMIDE 20 MG TAB PO SCH ×2 (05:26→17:09)
[2023-05-15 07:22] LABS: BASOPHILS % 0.4 % (0.0-1.0); EOSINOPHILS # (AUTO) 0.1 (0.0-0.4); EOSINOPHILS % 1.6 % (0.0-6.0); HEMOGLOBIN 7.1 g/dL (12.0-16.0); LYMPHOCYTES # (AUTO) 0.4 (1.0-3.2); MEAN CORPUSCULAR HEMOGLOBIN 30.2 pg (28-32); MEAN CORPUSCULAR HGB CONC 32.7 g/dL (31-35); MEAN CORPUSCULAR VOLUME 92.3 fL (81-99); MONOCYTES # (AUTO) 0.6 (0.2-0.8); MONOCYTES % 9.6 % (4.4-11.3); NEUTROPHILS # (AUTO) 4.6 (2.1-6.9); NEUTROPHILS % 80.3 % (38.7-80.0); PLATELET COUNT 111 x10e3/uL (140-360); RED BLOOD COUNT 2.35 x10e6/uL (3.6-5.1); RED CELL DISTRIBUTION WIDTH 20.1 % (11.7-14.4)
[2023-05-15 07:44] LABS: CALCIUM 8.6 mg/dL (8.4-10.2); CREATININE, SERUM 2.18 mg/dL (0.57-1.11)
[2023-05-15 08:16] LABS: HEMATOCRIT 21.7 % (34.2-44.1)
[2023-05-15] MEDS: COLLAGENASE 5 GM TUBE TP SCH (09:00)
[2023-05-15] MEDS: ASPIRIN 325 MG TAB PO SCH (09:03)
[2023-05-15] MEDS: CARVEDILOL 3.125 MG TAB PO SCH ×2 (09:03→17:10)
[2023-05-15] MEDS ORDERED: FUROSEMIDE INJ 10 MG/ML 4 ML VIAL IV ONE ×2 (11:15→16:30)
[2023-05-15] MEDS: LEVOFLOXACIN 250 MG TAB PO SCH (22:00)
[2023-05-15] MEDS: ATORVASTATIN 40 MG TAB PO SCH (22:00)
[2023-05-16] VITALS (10 sets, daily range): BP systolic 128–154; BP diastolic 56–66; PULSE 55–76; RESP 17–20; TEMP 97.7–98.6; O2SAT 92–100
[2023-05-16] MEDS: FUROSEMIDE 20 MG TAB PO SCH ×2 (05:15→17:17)
[2023-05-16] MEDS: LEVOTHYROXINE SODIUM 25 MCG TABLET PO SCH (05:16)
[2023-05-16 05:54] LABS: HEMATOCRIT 23.1 % (34.2-44.1); HEMOGLOBIN 7.5 g/dL (12.0-16.0)
[2023-05-16 06:41] LABS: ANION GAP 12.9 mmol/L (8-16); CALCIUM 8.5 mg/dL (8.4-10.2); CREATININE, SERUM 2.24 mg/dL (0.57-1.11); POTASSIUM 4.9 mmol/L (3.5-5.1)
[2023-05-16] MEDS: ASPIRIN 325 MG TAB PO SCH (09:21)
[2023-05-16] MEDS: CARVEDILOL 3.125 MG TAB PO SCH ×2 (09:22→17:15)
[2023-05-16] MEDS: COLLAGENASE 5 GM TUBE TP SCH (10:15)
[2023-05-16] MEDS: LEVOFLOXACIN 250 MG TAB PO SCH (21:22)
[2023-05-16] MEDS: ATORVASTATIN 40 MG TAB PO SCH (21:22)
[2023-05-17] VITALS (11 sets, daily range): BP systolic 141–158; BP diastolic 55–65; PULSE 53–65; RESP 14–21; TEMP 97.4–98.4; O2SAT 91–100
[2023-05-17] MEDS: LEVOTHYROXINE SODIUM 25 MCG TABLET PO SCH (05:18)
[2023-05-17] MEDS: FUROSEMIDE 20 MG TAB PO SCH ×2 (05:18→16:42)
[2023-05-17] MEDS: CARVEDILOL 3.125 MG TAB PO SCH ×2 (09:00→16:43)
[2023-05-17] MEDS: ASPIRIN 325 MG TAB PO SCH (09:08)
[2023-05-17] MEDS: COLLAGENASE 5 GM TUBE TP SCH (09:14)
[2023-05-17] MEDS: ATORVASTATIN 40 MG TAB PO SCH (21:50)
[2023-05-17] MEDS: LEVOFLOXACIN 250 MG TAB PO SCH (21:50)
[2023-05-18] VITALS (10 sets, daily range): BP systolic 120–159; BP diastolic 57–65; PULSE 53–65; RESP 16–20; TEMP 97.5–98.2; O2SAT 95–100
[2023-05-18] MEDS: LEVOTHYROXINE SODIUM 25 MCG TABLET PO SCH (06:14)
[2023-05-18] MEDS: FUROSEMIDE 20 MG TAB PO SCH ×2 (06:15→17:20)
[2023-05-18 06:32] LABS: BASOPHILS % 0.2 % (0.0-1.0); EOSINOPHILS # (AUTO) 0.1 (0.0-0.4); EOSINOPHILS % 2.2 % (0.0-6.0); LYMPHOCYTES # (AUTO) 0.4 (1.0-3.2); LYMPHOCYTES % 6.8 % (18.0-39.1); MEAN CORPUSCULAR HEMOGLOBIN 28.2 pg (28-32); MEAN CORPUSCULAR HGB CONC 31.1 g/dL (31-35); MEAN CORPUSCULAR VOLUME 90.6 fL (81-99); MONOCYTES # (AUTO) 0.5 (0.2-0.8); NEUTROPHILS # (AUTO) 5.2 (2.1-6.9); NEUTROPHILS % 82.3 % (38.7-80.0); PLATELET COUNT 170 x10e3/uL (140-360); RED BLOOD COUNT 2.45 x10e6/uL (3.6-5.1); RED CELL DISTRIBUTION WIDTH 18.6 % (11.7-14.4); WHITE BLOOD COUNT 6.35 x10e3/uL (4.8-10.8)
[2023-05-18 07:03] LABS: HEMOGLOBIN 7.1 g/dL (12.0-16.0)
[2023-05-18 07:04] LABS: HEMATOCRIT 22.6 % (34.2-44.1)
[2023-05-18 07:06] LABS: ALBUMIN 1.7 g/dL (3.5-5.0); ALBUMIN/GLOBULIN RATIO 0.4 (0.8-2.0); ANION GAP 12.9 mmol/L (8-16); CALCIUM 8.3 mg/dL (8.4-10.2); CREATININE, SERUM 2.21 mg/dL (0.57-1.11); POTASSIUM 4.9 mmol/L (3.5-5.1)
[2023-05-18] MEDS: CHOLECALCIFEROL 1,000 UNIT TAB PO SCH (08:16)
[2023-05-18] MEDS: ASPIRIN 325 MG TAB PO SCH (08:16)
[2023-05-18] MEDS: CARVEDILOL 3.125 MG TAB PO SCH ×2 (08:16→17:20)
[2023-05-18] MEDS: COLLAGENASE 5 GM TUBE TP SCH (17:23)
[2023-05-18] MEDS: LEVOFLOXACIN 250 MG TAB PO SCH (21:13)
[2023-05-18] MEDS: ATORVASTATIN 40 MG TAB PO SCH (21:14)
[2023-05-19] VITALS (10 sets, daily range): BP systolic 17–165; BP diastolic 54–65; PULSE 48–72; RESP 15–20; TEMP 97.4–97.8; O2SAT 95–100
[2023-05-19] MEDS: LEVOTHYROXINE SODIUM 25 MCG TABLET PO SCH (05:30)
[2023-05-19] MEDS: FUROSEMIDE 20 MG TAB PO SCH ×2 (05:30→17:42)
[2023-05-19 06:25] LABS: ANION GAP 11.7 mmol/L (8-16); CALCIUM 8.4 mg/dL (8.4-10.2); CREATININE, SERUM 2.21 mg/dL (0.57-1.11); POTASSIUM 4.7 mmol/L (3.5-5.1)
[2023-05-19] MEDS: CHOLECALCIFEROL 1,000 UNIT TAB PO SCH (08:53)
[2023-05-19] MEDS: ASPIRIN 325 MG TAB PO SCH (08:53)
[2023-05-19] MEDS: CARVEDILOL 3.125 MG TAB PO SCH ×2 (08:55→16:48)
[2023-05-19] MEDS ORDERED: EPOETIN ALFA-EPBX 10,000 UNIT/ML VIAL SC SCH (12:30)
[2023-05-19] MEDS: COLLAGENASE 5 GM TUBE TP SCH (14:44)
[2023-05-19] MEDS: ATORVASTATIN 40 MG TAB PO SCH (20:39)
[2023-05-20] VITALS (11 sets, daily range): BP systolic 141–155; BP diastolic 43–63; PULSE 52–65; RESP 15–20; TEMP 97.5–97.9; O2SAT 93–100
[2023-05-20] MEDS: FUROSEMIDE 20 MG TAB PO SCH ×2 (05:14→17:31)
[2023-05-20] MEDS: LEVOTHYROXINE SODIUM 25 MCG TABLET PO SCH (05:14)
[2023-05-20 06:03] LABS: HEMATOCRIT 22.1 % (34.2-44.1)
[2023-05-20 06:41] LABS: ANION GAP 12.5 mmol/L (8-16); CALCIUM 8.3 mg/dL (8.4-10.2); CREATININE, SERUM 2.17 mg/dL (0.57-1.11); POTASSIUM 4.5 mmol/L (3.5-5.1)
[2023-05-20] MEDS: ASPIRIN 325 MG TAB PO SCH (08:57)
[2023-05-20] MEDS: CHOLECALCIFEROL 1,000 UNIT TAB PO SCH (08:57)
[2023-05-20] MEDS: CARVEDILOL 3.125 MG TAB PO SCH ×2 (08:58→16:43)
[2023-05-20] MEDS: COLLAGENASE 5 GM TUBE TP SCH (09:00)
[2023-05-20] MEDS: ATORVASTATIN 40 MG TAB PO SCH (21:00)
[2023-05-21] VITALS (11 sets, daily range): BP systolic 138–167; BP diastolic 45–62; PULSE 49–62; RESP 16–20; TEMP 97.4–98.3; O2SAT 93–100
[2023-05-21] MEDS: LEVOTHYROXINE SODIUM 25 MCG TABLET PO SCH (05:21)
[2023-05-21] MEDS: FUROSEMIDE 20 MG TAB PO SCH ×2 (05:21→17:10)
[2023-05-21 05:45] LABS: HEMATOCRIT 23.3 % (34.2-44.1); HEMOGLOBIN 7.3 g/dL (12.0-16.0)
[2023-05-21] MEDS: ASPIRIN 325 MG TAB PO SCH (08:35)
[2023-05-21] MEDS: CHOLECALCIFEROL 1,000 UNIT TAB PO SCH (08:35)
[2023-05-21] MEDS: CARVEDILOL 3.125 MG TAB PO SCH ×2 (08:36→17:08)
[2023-05-21] MEDS: COLLAGENASE 5 GM TUBE TP SCH (17:18)
[2023-05-21] MEDS: ATORVASTATIN 40 MG TAB PO SCH (21:12)
[2023-05-22] VITALS (9 sets, daily range): BP systolic 134–160; BP diastolic 47–70; PULSE 52–68; RESP 16–19; TEMP 97.4–97.6; O2SAT 94–100
[2023-05-22] MEDS: LEVOTHYROXINE SODIUM 25 MCG TABLET PO SCH (05:20)
[2023-05-22] MEDS: FUROSEMIDE 20 MG TAB PO SCH ×2 (05:20→17:21)
[2023-05-22 06:59] LABS: ANION GAP 11.5 mmol/L (8-16); CALCIUM 8.4 mg/dL (8.4-10.2); CREATININE, SERUM 1.99 mg/dL (0.57-1.11); POTASSIUM 4.5 mmol/L (3.5-5.1)
[2023-05-22] MEDS: CHOLECALCIFEROL 1,000 UNIT TAB PO SCH (09:56)
[2023-05-22] MEDS: CARVEDILOL 3.125 MG TAB PO SCH ×2 (09:56→17:20)
[2023-05-22] MEDS: ASPIRIN 325 MG TAB PO SCH (09:56)
[2023-05-22] MEDS: COLLAGENASE 5 GM TUBE TP SCH (12:35)
[2023-05-22] MEDS: ATORVASTATIN 40 MG TAB PO SCH (21:28)
[2023-05-23] VITALS (8 sets, daily range): BP systolic 146–165; BP diastolic 47–74; PULSE 54–74; RESP 16–19; TEMP 97.5–98; O2SAT 95–100
[2023-05-23] MEDS: FUROSEMIDE 20 MG TAB PO SCH ×2 (05:36→17:48)
[2023-05-23] MEDS: LEVOTHYROXINE SODIUM 25 MCG TABLET PO SCH (05:36)
[2023-05-23] MEDS: CHOLECALCIFEROL 1,000 UNIT TAB PO SCH (09:17)
[2023-05-23] MEDS: ASPIRIN 325 MG TAB PO SCH (09:17)
[2023-05-23] MEDS: COLLAGENASE 5 GM TUBE TP SCH (09:18)
[2023-05-23] MEDS: CARVEDILOL 3.125 MG TAB PO SCH ×2 (09:18→17:48)
[2023-05-23] MEDS: ATORVASTATIN 40 MG TAB PO SCH (20:33)
[2023-05-24] VITALS (11 sets, daily range): BP systolic 138–165; BP diastolic 44–84; PULSE 56–74; RESP 12–18; TEMP 97.5–98.6; O2SAT 91–100
[2023-05-24] MEDS: FUROSEMIDE 20 MG TAB PO SCH ×2 (05:27→17:37)
[2023-05-24] MEDS: LEVOTHYROXINE SODIUM 25 MCG TABLET PO SCH (05:27)
[2023-05-24 06:05] LABS: BASOPHILS % 0.2 % (0.0-1.0); EOSINOPHILS # (AUTO) 0.1 (0.0-0.4); EOSINOPHILS % 1.7 % (0.0-6.0); HEMOGLOBIN 7.1 g/dL (12.0-16.0); LYMPHOCYTES # (AUTO) 0.5 (1.0-3.2); LYMPHOCYTES % 9.6 % (18.0-39.1); MEAN CORPUSCULAR HEMOGLOBIN 28.7 pg (28-32); MEAN CORPUSCULAR HGB CONC 31.3 g/dL (31-35); MEAN CORPUSCULAR VOLUME 91.9 fL (81-99); MONOCYTES # (AUTO) 0.5 (0.2-0.8); MONOCYTES % 10.3 % (4.4-11.3); NEUTROPHILS # (AUTO) 3.6 (2.1-6.9); NEUTROPHILS % 77.6 % (38.7-80.0); PLATELET COUNT 221 x10e3/uL (140-360); RED BLOOD COUNT 2.47 x10e6/uL (3.6-5.1); RED CELL DISTRIBUTION WIDTH 18.5 % (11.7-14.4); WHITE BLOOD COUNT 4.67 x10e3/uL (4.8-10.8)
[2023-05-24 06:08] LABS: HEMATOCRIT 22.9 % (34.2-44.1)
[2023-05-24 06:19] LABS: ANION GAP 10.3 mmol/L (8-16); CALCIUM 8.3 mg/dL (8.4-10.2); POTASSIUM 4.3 mmol/L (3.5-5.1)
[2023-05-24] MEDS: CARVEDILOL 3.125 MG TAB PO SCH ×2 (09:46→17:08)
[2023-05-24] MEDS: ASPIRIN 325 MG TAB PO SCH (09:46)
[2023-05-24] MEDS: CHOLECALCIFEROL 1,000 UNIT TAB PO SCH (09:47)
[2023-05-24] MEDS: COLLAGENASE 5 GM TUBE TP SCH (09:48)
[2023-05-24] MEDS: ATORVASTATIN 40 MG TAB PO SCH (20:52)
[2023-05-25] VITALS (8 sets, daily range): BP systolic 139–164; BP diastolic 48–64; PULSE 51–73; RESP 16–20; TEMP 97.5–97.9; O2SAT 96–100
[2023-05-25] MEDS: LEVOTHYROXINE SODIUM 25 MCG TABLET PO SCH (05:30)
[2023-05-25] MEDS: FUROSEMIDE 20 MG TAB PO SCH ×2 (05:30→17:04)
[2023-05-25] MEDS: CHOLECALCIFEROL 1,000 UNIT TAB PO SCH (09:16)
[2023-05-25] MEDS: COLLAGENASE 5 GM TUBE TP SCH (09:17)
[2023-05-25] MEDS: ASPIRIN 325 MG TAB PO SCH (09:17)
[2023-05-25] MEDS: CARVEDILOL 3.125 MG TAB PO SCH ×2 (09:18→16:33)
[2023-05-25] MEDS: ATORVASTATIN 40 MG TAB PO SCH (21:38)
[2023-05-26] VITALS (14 sets, daily range): BP systolic 127–152; BP diastolic 47–62; PULSE 53–74; RESP 16–20; TEMP 97.2–98.4; O2SAT 95–100
[2023-05-26 05:43] LABS: BASOPHILS % 0.2 % (0.0-1.0); EOSINOPHILS # (AUTO) 0.1 (0.0-0.4); EOSINOPHILS % 1.8 % (0.0-6.0); HEMATOCRIT 21.9 % (34.2-44.1); LYMPHOCYTES # (AUTO) 0.5 (1.0-3.2); LYMPHOCYTES % 10.3 % (18.0-39.1); MEAN CORPUSCULAR HEMOGLOBIN 28.6 pg (28-32); MEAN CORPUSCULAR HGB CONC 31.1 g/dL (31-35); MONOCYTES # (AUTO) 0.5 (0.2-0.8); MONOCYTES % 10.1 % (4.4-11.3); NEUTROPHILS # (AUTO) 3.8 (2.1-6.9); NEUTROPHILS % 76.6 % (38.7-80.0); PLATELET COUNT 234 x10e3/uL (140-360); RED BLOOD COUNT 2.38 x10e6/uL (3.6-5.1); RED CELL DISTRIBUTION WIDTH 18.3 % (11.7-14.4); WHITE BLOOD COUNT 4.93 x10e3/uL (4.8-10.8)
[2023-05-26] MEDS: FUROSEMIDE 20 MG TAB PO SCH (05:43)
[2023-05-26] MEDS: LEVOTHYROXINE SODIUM 25 MCG TABLET PO SCH (05:43)
[2023-05-26 05:54] LABS: HEMOGLOBIN 6.8 g/dL (12.0-16.0)
[2023-05-26 06:11] LABS: CALCIUM 8.2 mg/dL (8.4-10.2); CREATININE, SERUM 1.8 mg/dL (0.57-1.11); POTASSIUM 4.1 mmol/L (3.5-5.1)
[2023-05-26 06:22] LABS: ANION GAP 11.1 mmol/L (8-16)
[2023-05-26] MEDS ORDERED: SODIUM CHLORIDE 0.9% 250ML 250 ML IV ONE (08:15)
[2023-05-26] MEDS: ASPIRIN 325 MG TAB PO SCH (09:37)
[2023-05-26] MEDS: CHOLECALCIFEROL 1,000 UNIT TAB PO SCH (09:37)
[2023-05-26] MEDS: COLLAGENASE 5 GM TUBE TP SCH (09:37)
[2023-05-26] MEDS: CARVEDILOL 3.125 MG TAB PO SCH ×2 (09:38→17:50)
[2023-05-26] MEDS ORDERED: SODIUM CHLORIDE 0.9% 250ML 250 ML ONE ×2 (12:15→17:31)
[2023-05-26] MEDS ORDERED: FUROSEMIDE INJ 10 MG/ML 4 ML VIAL IV ONE (15:30)
[2023-05-26] MEDS: BUMETANIDE 1 MG TAB PO SCH (17:50)
[2023-05-26] MEDS: ATORVASTATIN 40 MG TAB PO SCH (23:53)
[2023-05-27] VITALS (8 sets, daily range): BP systolic 142–160; BP diastolic 48–64; PULSE 53–60; RESP 17–20; TEMP 97.5–98.4; O2SAT 97–100
[2023-05-27 05:48] LABS: BASOPHILS % 0.2 % (0.0-1.0); EOSINOPHILS # (AUTO) 0.1 (0.0-0.4); EOSINOPHILS % 1.6 % (0.0-6.0); HEMATOCRIT 27.5 % (34.2-44.1); HEMOGLOBIN 8.9 g/dL (12.0-16.0); LYMPHOCYTES # (AUTO) 0.6 (1.0-3.2); LYMPHOCYTES % 9.7 % (18.0-39.1); MEAN CORPUSCULAR HGB CONC 32.4 g/dL (31-35); MEAN CORPUSCULAR VOLUME 89.6 fL (81-99); MONOCYTES # (AUTO) 0.6 (0.2-0.8); MONOCYTES % 9.7 % (4.4-11.3); NEUTROPHILS # (AUTO) 4.5 (2.1-6.9); NEUTROPHILS % 78.1 % (38.7-80.0); PLATELET COUNT 221 x10e3/uL (140-360); RED BLOOD COUNT 3.07 x10e6/uL (3.6-5.1); WHITE BLOOD COUNT 5.75 x10e3/uL (4.8-10.8)
[2023-05-27 06:17] LABS: ANION GAP 10.8 mmol/L (8-16); CALCIUM 8.4 mg/dL (8.4-10.2); CREATININE, SERUM 1.83 mg/dL (0.57-1.11); POTASSIUM 3.8 mmol/L (3.5-5.1)
[2023-05-27] MEDS: LEVOTHYROXINE SODIUM 25 MCG TABLET PO SCH (07:16)
[2023-05-27] MEDS: CHOLECALCIFEROL 1,000 UNIT TAB PO SCH (08:55)
[2023-05-27] MEDS: CARVEDILOL 3.125 MG TAB PO SCH ×2 (08:55→16:45)
[2023-05-27] MEDS: ASPIRIN 325 MG TAB PO SCH (08:55)
[2023-05-27] MEDS: BUMETANIDE 1 MG TAB PO SCH (08:55)
[2023-05-27] MEDS ORDERED: DEXTROSE 5% 1,000 ML IV ONE (11:00)
[2023-05-27] MEDS: COLLAGENASE 5 GM TUBE TP SCH (11:46)
[2023-05-27] MEDS ORDERED: BUMETANIDE 1 MG TAB PO SCH (17:00)
[2023-05-27] MEDS ORDERED: BUMETANIDE1 MG PO (18:40)
[2023-05-27] MEDS ORDERED: SANTYL TOP (18:40)
== END 2023-05-27 19:15 | disposition home health service (06) | DRG 186 ==
LOC: ER 20:53 → ERHOLD 23:15 → MED/SURG3 05-12 03:34
PROVIDERS: ADMIT Family Medicine; ATTEND Family Medicine
PROC: 30233N1 Transfusion of Nonautologous Red Blood Cells into Peripheral Vein, Percutaneous Approach (ICD-10-PCS; principal; 2023-05-12)
PROC: 0W993ZZ Drainage of Right Pleural Cavity, Percutaneous Approach (ICD-10-PCS; 2023-05-12)
DX: J90 Pleural effusion, not elsewhere classified (principal); L89.624 Pressure ulcer of left heel, stage 4; D62 Acute posthemorrhagic anemia; N17.9 Acute kidney failure, unspecified; I13.0 Hypertensive heart and chronic kidney disease with heart failure and stage 1 through stage 4 chronic kidney disease, or unspecified chronic kidney disease; I50.32 Chronic diastolic (congestive) heart failure; N18.4 Chronic kidney disease, stage 4 (severe); E87.0 Hyperosmolality and hypernatremia; S36.112A Contusion of liver, initial encounter; E87.5 Hyperkalemia; E11.22 Type 2 diabetes mellitus with diabetic chronic kidney disease; E66.01 Morbid (severe) obesity due to excess calories; Z68.36 Body mass index [BMI] 36.0-36.9, adult; R16.1 Splenomegaly, not elsewhere classified; R39.2 Extrarenal uremia; R53.1 Weakness; D63.1 Anemia in chronic kidney disease; M79.81 Nontraumatic hematoma of soft tissue; R53.81 Other malaise; L89.150 Pressure ulcer of sacral region, unstageable; E11.21 Type 2 diabetes mellitus with diabetic nephropathy; Z89.421 Acquired absence of other right toe(s); Z85.42 Personal history of malignant neoplasm of other parts of uterus; Z92.3 Personal history of irradiation; Z79.4 Long term (current) use of insulin; Z79.899 Other long term (current) drug therapy; Z20.822 Contact with and (suspected) exposure to COVID-19
CPT/HCPCS: 32555; 36415; 36568; 70450; 71045; 74176; 80048; 80053; 81001; 81015; 82040; 82550; 82570; 82728; 82948; 83540; 83615; 83690; 83970; 84100; 84132; 84156; 84157; 84165; 84484; 85014; 85018; 85025; 85610; 85730; 86850; 86900; 86920; 87070; 87205; 88112; 88305; 93005; 94640; 94799; 99252; 99285; J1940; J1956; J2270; J7030; J7050; J7070; J7799; P9016; U0002